=== PATIENT | female | born 1940 | race Two or more races ===

== ENCOUNTER 2024-05-07 13:57 | Outpatient (AMB) | payer OTHER, SELFPAY ==
[2024-05-07 14:26] VITALS: BP 164/78; PULSE 66; RESP 18; TEMP 36.7; O2SAT 91; BMI 25.0
--- NOTE | 2024-05-07 14:26 | PD.ORTHCLVIS ---
Vital signs 05/07/24 14:26 Height 1.57 m Height Method Stated Weight 61.689 kg Weight Measurement Method Standing Scale BMI 25.0 BP 164/78 H Blood Pressure Source Automatic Cuff Blood Pressure Location Left Upper Arm Position Sitting Respiration 18 Pulse 66 Pulse Source Monitor Temp 98.0 F Temp Source Temporal Artery Scan Pulse Oximetry (%) 91 L Oxygen Delivery Method Room Air Med/Allergies Allergies & Medications Allergies No Known Allergies Allergy (Verified 05/07/24 14:26) Medication Reconciliation simvastatin 40 mg tablet 40 mg PO HS ##90 07/27/15 [History Confirmed 05/07/24] acetaminophen 300 mg-codeine 30 mg tablet 1 tab PO Q6HR PRN Pain 06/12/23 [History Confirmed 05/07/24] celecoxib 200 mg capsule 200 mg PO QDAY 06/12/23 [History Confirmed 05/07/24] pantoprazole 40 mg tablet,delayed release 40 mg PO QDAY 06/12/23 [History Confirmed 05/07/24] apixaban 5 mg (74 tabs) tablets in a dose pack 5 mg PO BID #74 tabs 06/14/23 [Rx Confirmed 05/07/24] cephalexin 500 mg capsule 500 mg PO Q6H #16 caps 06/14/23 [Rx Confirmed 05/07/24] Exam Exam Patient is in no acute distress and is cooperative with the examination today. Patient has a normal mood and affect. Breathing is nonlabored. In no respiratory distress. Bilateral extremities were evaluated and demonstrates sensation intact to light touch. Palpable pedal pulses are present. No significant edema is present. Patient has spinal tenderness Right hip demonstrates pain with logroll no pain with Stinchfield. Flexion is 90 internal rotation is to 20 degrees and external rotation is 20 degrees. Left hip range of motion is preserved Patient has moderate to advanced right hip osteoarthritis. X-rays demonstrate [id number] arthritis with significant wear of the acetabulum Assessment and Plan Problem List (1) Arthritis of right hip: Status: Acute Plan: Patient has significant right hip arthritis and has been wheelchair-bound since April. She had great relief with her last hip injection. At this point time, the pain is affecting her quality life and happiness. We discussed total Hip replacement is a reasonable option. She is at high risk for medical complications given her history of PE and NSTEMI she will need medical and cardiac stents The nature and purpose of the total hip replacement, alternative method(s) of treatment, the material risks involved, and the possibility of complications were fully explained to the patient. The patient does NOT have any of the following contraindications to CHRISTOPHER: - Active infection of the hip joint, OR - Active systemic bacteremia, OR - Active skin infection or open wound at surgical site, OR - Neuropathic arthritis, OR - Severe, rapidly progressive neurological disease, OR - Severe medical condition that makes risks of the surgery outweigh the potential benefit The patient was told the most common risks and complications associated with a total hip replacement include, but are not limited to: blood clots in the leg, fatal pulmonary embolism, dislocation of the prosthesis, intraoperative and postoperative fractures of the femur or acetabulum, infection, failure of the prosthesis or grafting materials, complications from anesthesia, reactions to blood transfusions, postoperative leg length inequality, instability of the hip replacement, nerve damage or injury, vascular injury, delayed wound healing, infection, other injury or even . In addition, there are risks associated with anesthesia given during this operation. Also, the patient was told that after undergoing a total hip replacement there may still be persistent pain or disability. The patient was informed that the success of this operation in part depends upon the mechanical devices which are going to be implanted and that these devices can fail or malfunction, and may need to be repaired or replaced and there are no guarantees as to the longevity of this device or its parts and that it or its parts could fail prematurely. The patient was also notified that during the course of surgery, there may be a need to use bone graft from donors, and that any bone graft used will be carefully screened for communicable diseases, including AIDS, hepatitis, Bjorn-Creutzfeldt, or other diseases, but despite the screening procedures, there is a small chance that they could contract one of these diseases. Finally, the patient was asked to follow completely and fully with all advice and recommended treatments, and that recovery and ultimate outcome are affected by their compliance with recommended treatment. We discussed the risks, benefits and treatment alternatives, and the patient is interested in proceeding with surgery. We will try to set this up as expeditiously as possible. (2) Muscle spasm of back: Status: Acute Advanced Care Planning Discussion Advance care planning discussed with:: patient Office Procedures GNS Level of Care Nursing/Assessment Patient Status: Established Patient Nursing Assessment/Reassesment: Medication Reconciliation, Update PMH in EMR and Vital Signs Coordination of Care: Complex Care and Chronic Disease 1-5, Education Complex Pt/Fam, Consent,records obtained, informed consent, Results/Orders obtained and Staff clarify orders Established Patient Charge Established Patient Point Assignment: 95 Established Patient Point Charge: EP Level 3 (80-115) MA Intake Visit Data Collection New Patient or Established: Established Patient (seen at [facility] within 3 years) Reason for Visit:: FOLLOW UP SX Seen by Clinical Staff ONLY (RN/MA): No Mold Maker Required: No PCP or OBGYN visit in last 3 months: Yes Hx Now: No Do You Feel Safe at Home: Yes Authorities Contacted: N/A Questionairres Past Medical History Past Medical History Have you ever been diagnosed with any of the following: Cardiology Problems Hypercholesterolemia: Yes Congestive Heart Failure: Yes Edema: Yes Hypertension: Yes Respiratory Problems Chronic Obstructive Pulmonary Disease (COPD): No Asthma: No Stomache/Intestinal Problems Gastroesophageal Reflux Disease: Yes Genital/Urinary Problems Renal Disease: No Musculoskeletal Problems Arthritis: Yes (OSTEOARTHRITIS) Osteoporosis: No Endocrine Problems Diabetes Mellitus Type 1: No Diabetes Mellitus Type 2: No Blood Problems Sickle Cell Disease: No Psychologic Problems Depression: No Anxiety: No Other Problems Hospitalization: Yes Falls: Yes Anesthesia Reactions: No Cancer: No Surgical History Hysterectomy: Yes Subjective Visit Visit for: follow up visit and hip Immunization / Flu Flu Vaccine in the Last 12 Months: No Flu Vaccine Exclusion Criteria: No Exclusion Criteria History of Present Illness Chief complaint: right hip osteoarthritis ranjan is a pleasant 83-year-old female who presents today for evaluation of her right hip. She has significant right hip pain and right hip Arthritis. We discussed total hip replacement reasonable option. She had a hip injection 4 months ago and had great relief from it. She is at high risk of medical complications given her history of PE, her IVC filter, and NSTEMI. She will need a repeat cardiac clearance Pain Pain level (0-10): 0 Ambulatory data Ambulatory device: other (specify) (WHEELCHAIR) Treatments Improvement with previous injections: No Improvement with PT: No Improvement with NSAIDS: no Review of Systems Review of Systems: All systems negative unless otherwise noted in HPI.
== END 2024-05-07 14:58 | disposition home or self-care (01) ==
PROVIDERS: PCP Physician Assistant; Referring Provider Physician Assistant; Supervising Provider Orthopaedic Surgery Adult Reconstructive Orthopaedic Surgery; Visit Provider Orthopaedic Surgery Adult Reconstructive Orthopaedic Surgery
DX: M16.11 Unilateral primary osteoarthritis, right hip (principal); M62.830 Muscle spasm of back; Z99.3 Dependence on wheelchair; I11.0 Hypertensive heart disease with heart failure; I50.9 Heart failure, unspecified; E78.00 Pure hypercholesterolemia, unspecified; K21.9 Gastro-esophageal reflux disease without esophagitis; Z86.711 Personal history of pulmonary embolism
CPT/HCPCS: 99213; G0463

== ENCOUNTER → 2024-05-07 | Outpatient (CLI) | payer OTHER, SELFPAY ==
[2024-05-07 17:10] LABS: Alanine Aminotransferase 26 U/L (10-49); Albumin, Serum 4.4 gm/dL (3.4-4.8); Albumin/Globulin Ratio 2.4 (1.2-2.2); Alkaline Phosphatase 83 U/L (46-116); Anion Gap 11 (7-16); Aspartate Amino Transferase 17 U/L (0-34); BUN/Creatinine Ratio 33 Ratio (12-20); Bilirubin,Total 0.4 mg/dL (0.3-1.2); Blood Urea Nitrogen 26 mg/dL (9-23); Calcium 9.5 mg/dL (8.3-10.6); Calcium (Corrected) 9.5 mg/dL (8.5-10.1); Carbon Dioxide 29.4 mMol/L (20.0-31.0); Cardiac Risk Estimate 3.3 RATIO (3.7-5.6); Chloride 104 mMol/L (98-107); Cholesterol 209 mg/dL (132-200); Creatinine (Component) 0.8 mg/dL (0.6-1.3); Globulin 1.8 gm/dL (2.3-3.5); Glucose 129 mg/dL (74-106); HDL Cholesterol 63 mg/dL (40-60); LDL Cholesterol,Calculated 122 mg/dL (0-130); Osmolality,Calculated 293 (275-295); Potassium 4.2 mMol/L (3.4-5.1); Sodium 144 mMol/L (136-145); Total Protein 6.2 gm/dL (5.7-8.2); Triglycerides 118 mg/dL (30-150); eGFR > 60 See Note
== END | disposition home or self-care (01) ==
PROVIDERS: PCP Physician Assistant; Referring Provider Physician Assistant; Visit Provider Physician Assistant
DX: I12.9 Hypertensive chronic kidney disease with stage 1 through stage 4 chronic kidney disease, or unspecified chronic kidney disease (principal); N18.30 Chronic kidney disease, stage 3 unspecified; E78.5 Hyperlipidemia, unspecified
CPT/HCPCS: 36415; 80053; 80061

== ENCOUNTER 2024-05-17 13:44 | Outpatient (RCR) | payer OTHER, SELFPAY | END 2024-05-21 23:59 | disposition home or self-care (01) | LOC: SCTC 13:44 | PROVIDERS: PCP Physician Assistant; Referring Provider Physician Assistant; Visit Provider Nurse Practitioner Family | DX: Z09 Encounter for follow-up examination after completed treatment for conditions other than malignant neoplasm (principal); Z86.718 Personal history of other venous thrombosis and embolism; Z86.711 Personal history of pulmonary embolism; Z79.01 Long term (current) use of anticoagulants | CPT/HCPCS: 99212; G0463 ==

== ENCOUNTER → 2024-05-25 | Outpatient (CLI) | payer OTHER, SELFPAY ==
[2024-05-25 16:29] LABS: Basophils % (Auto) 0 % (0-2.5); Eosinophils # (Auto) 0.1 Thou/mm3 (0.0-0.5); Eosinophils % (Auto) 0 % (0-10); Hematocrit 35.7 % (36.0-46.0); Hemoglobin 11.8 g/dL (12.0-16.0); Immature Granulocytes % (Auto) 2 % (0-0); Immature Granulocytes Auto 0.21 Thou/mm3 (0.00-0.00); Lymphocytes # (Auto) 1.4 Thou/mm3 (1.0-4.8); Lymphocytes % (Auto) 13 % (10-50); Mean Corpuscular HGB Conc 33.1 g/dl (31.0-37.0); Mean Corpuscular Hemoglobin 30.3 pg (25.0-35.0); Mean Corpuscular Volume 92 fL (80-100); Monocytes # (Auto) 0.5 Thou/mm3 (0.0-0.8); Monocytes % (Auto) 5 % (0-12); Neutrophils % (Auto) 80 % (37-80); Nucleated Red Blood Cell % 0 /100 WBC (0); Platelet Count 254 Thou/mm3 (140-440); Red Blood Count 3.89 Miln/mm3 (4.00-5.20); White Blood Count 11.2 Thou/mm3 (3.6-11.0)
[2024-05-25 16:36] LABS: INR 0.9 (0.9-1.3); Partial Thromboplastin Time 24.8 Seconds (22.0-36.0); Prothrombin Time 10.3 Seconds (9.0-12.2)
[2024-05-25 16:41] LABS: Alanine Aminotransferase 27 U/L (10-49); Albumin, Serum 4.2 gm/dL (3.4-4.8); Albumin/Globulin Ratio 2.1 (1.2-2.2); Alkaline Phosphatase 87 U/L (46-116); Anion Gap 10 (7-16); Aspartate Amino Transferase 13 U/L (0-34); BUN/Creatinine Ratio 54 Ratio (12-20); Bilirubin,Total 0.6 mg/dL (0.3-1.2); Blood Urea Nitrogen 43 mg/dL (9-23); Calcium 9.1 mg/dL (8.3-10.6); Calcium (Corrected) 9.1 mg/dL (8.5-10.1); Carbon Dioxide 29.3 mMol/L (20.0-31.0); Chloride 103 mMol/L (98-107); Creatinine (Component) 0.8 mg/dL (0.6-1.3); Glucose 164 mg/dL (74-106); Osmolality,Calculated 297 (275-295); Potassium 4.2 mMol/L (3.4-5.1); Sodium 142 mMol/L (136-145); Total Protein 6.2 gm/dL (5.7-8.2); eGFR > 60 See Note
== END | disposition home or self-care (01) ==
LOC: COPL 15:29
PROVIDERS: PCP Physician Assistant; Referring Provider Physician Assistant; Visit Provider Physician Assistant
DX: Z01.818 Encounter for other preprocedural examination (principal)
CPT/HCPCS: 36415; 80053; 85025; 85610; 85730

== ENCOUNTER 2024-06-10 12:57 | Outpatient (AMB) | payer OTHER, SELFPAY ==
[2024-06-10 13:06] VITALS: BP 149/101; PULSE 94; RESP 18; TEMP 36.3; O2SAT 95
--- NOTE | 2024-06-10 13:06 | PD.ORTHCLVIS ---
Vital signs 06/10/24 13:06 Height 1.57 m Height Method Stated Weight Measurement Method Estimated by Patient BP 149/101 H Blood Pressure Source Automatic Cuff Blood Pressure Location Right Upper Arm Position Sitting Respiration 18 Pulse 94 Pulse Source Monitor Temp 97.3 F Temp Source Temporal Artery Scan Pulse Oximetry (%) 95 Oxygen Delivery Method Room Air Med/Allergies Allergies & Medications Allergies No Known Allergies Allergy (Verified 06/10/24 13:08) Medication Reconciliation simvastatin 40 mg tablet 40 mg PO HS ##90 07/27/15 [History Confirmed 06/10/24] acetaminophen 300 mg-codeine 30 mg tablet 1 tab PO Q6HR PRN Pain 06/12/23 [History Confirmed 06/10/24] celecoxib 200 mg capsule 200 mg PO QDAY 06/12/23 [History Confirmed 06/10/24] pantoprazole 40 mg tablet,delayed release 40 mg PO QDAY 06/12/23 [History Confirmed 06/10/24] apixaban 5 mg (74 tabs) tablets in a dose pack 5 mg PO BID #74 tabs 06/14/23 [Rx Confirmed 06/10/24] cephalexin 500 mg capsule 500 mg PO Q6H #16 caps 06/14/23 [Rx Confirmed 06/10/24] Exam Exam Patient is in no acute distress and is cooperative with the examination today. Patient has a normal mood and affect. Breathing is nonlabored. In no respiratory distress. Bilateral extremities were evaluated and demonstrates sensation intact to light touch. Palpable pedal pulses are present. No significant edema is present. Patient has spinal tenderness Right hip demonstrates pain with logroll no pain with Stinchfield. Flexion is 90 internal rotation is to 20 degrees and external rotation is 20 degrees. Left hip range of motion is preserved Patient has moderate to advanced right hip osteoarthritis. X-rays demonstrate nyef-ea-gnsj arthritis with significant wear of the acetabulum Assessment and Plan Problem List (1) Arthritis of right hip: Status: Acute Plan: Patient has significant right hip arthritis and has been wheelchair-bound since April. She had great relief with her last hip injection. At this point time, the pain is affecting her quality life and happiness. We discussed total Hip replacement is a reasonable option. She is at high risk for medical complications given her history of PE and NSTEMI she will need medical and cardiac stents. The patient understands that she is at high risk for surgery and would like to proceed with surgery. She is status post a stop Eliquis 3 days prior to surgery and is to resume it 2 days after surgery. The nature and purpose of the total hip replacement, alternative method(s) of treatment, the material risks involved, and the possibility of complications were fully explained to the patient. The patient does NOT have any of the following contraindications to CHRISTOPHER: - Active infection of the hip joint, OR - Active systemic bacteremia, OR - Active skin infection or open wound at surgical site, OR - Neuropathic arthritis, OR - Severe, rapidly progressive neurological disease, OR - Severe medical condition that makes risks of the surgery outweigh the potential benefit The patient was told the most common risks and complications associated with a total hip replacement include, but are not limited to: blood clots in the leg, fatal pulmonary embolism, dislocation of the prosthesis, intraoperative and postoperative fractures of the femur or acetabulum, infection, failure of the prosthesis or grafting materials, complications from anesthesia, reactions to blood transfusions, postoperative leg length inequality, instability of the hip replacement, nerve damage or injury, vascular injury, delayed wound healing, infection, other injury or even . In addition, there are risks associated with anesthesia given during this operation. Also, the patient was told that after undergoing a total hip replacement there may still be persistent pain or disability. The patient was informed that the success of this operation in part depends upon the mechanical devices which are going to be implanted and that these devices can fail or malfunction, and may need to be repaired or replaced and there are no guarantees as to the longevity of this device or its parts and that it or its parts could fail prematurely. The patient was also notified that during the course of surgery, there may be a need to use bone graft from donors, and that any bone graft used will be carefully screened for communicable diseases, including AIDS, hepatitis, Bjorn-Creutzfeldt, or other diseases, but despite the screening procedures, there is a small chance that they could contract one of these diseases. Finally, the patient was asked to follow completely and fully with all advice and recommended treatments, and that recovery and ultimate outcome are affected by their compliance with recommended treatment. We discussed the risks, benefits and treatment alternatives, and the patient is interested in proceeding with surgery. We will try to set this up as expeditiously as possible. (2) Muscle spasm of back: Status: Acute Advanced Care Planning Discussion Advance care planning discussed with:: patient Office Procedures GNS Level of Care Nursing/Assessment Patient Status: Established Patient Nursing Assessment/Reassesment: Medication Reconciliation, Update PMH in EMR and Vital Signs Coordination of Care: Complex Care and Chronic Disease 1-5, Education Complex Pt/Fam, Consent,records obtained, informed consent, Results/Orders obtained and Staff clarify orders Established Patient Charge Established Patient Point Assignment: 95 Established Patient Point Charge: EP Level 3 (80-115) MA Intake Visit Data Collection New Patient or Established: Established Patient (seen at [facility] within 3 years) Reason for Visit:: PRE-OP HIP Seen by Clinical Staff ONLY (RN/MA): No Verbal consent obtained for Telemed visit?: No Tooling Mechanic Required: No PCP or OBGYN visit in last 3 months: Yes Hx Now: No Do You Feel Safe at Home: Yes Authorities Contacted: N/A Questionairres Past Medical History Past Medical History Have you ever been diagnosed with any of the following: Cardiology Problems Hypercholesterolemia: Yes Congestive Heart Failure: Yes Edema: Yes Hypertension: Yes Respiratory Problems Chronic Obstructive Pulmonary Disease (COPD): No Asthma: No Stomache/Intestinal Problems Gastroesophageal Reflux Disease: Yes Genital/Urinary Problems Renal Disease: No Musculoskeletal Problems Arthritis: Yes (OSTEOARTHRITIS) Osteoporosis: No Endocrine Problems Diabetes Mellitus Type 1: No Diabetes Mellitus Type 2: No Blood Problems Sickle Cell Disease: No Psychologic Problems Depression: No Anxiety: No Other Problems Hospitalization: Yes Falls: Yes Anesthesia Reactions: No Cancer: No Surgical History Hysterectomy: Yes Subjective Visit Visit for: follow up visit and hip Immunization / Flu Flu Vaccine in the Last 12 Months: No Flu Vaccine Exclusion Criteria: No Exclusion Criteria and Already Received History of Present Illness Chief complaint: right hip osteoarthritis ranjan is a pleasant 83-year-old female who presents today for evaluation of her right hip. She has significant right hip pain and right hip Arthritis. We discussed total hip replacement reasonable option. She had a hip injection 6 months ago and had great relief from it. She is at high risk of medical complications given her history of PE, her IVC filter, and NSTEMI. She will need a repeat cardiac clearance Personal History Occupation: DISABLED Red flag PMH: none Pain Pain level (0-10): 0 Pain duration: ALL DAY Pain location: groin Pain quality: sharp, dull and aching Pain timing: night, increases with activity and stairs Ambulatory data Ambulatory device: other (specify) (WHEELCHAIR) Treatments Improvement with previous injections: No Improvement with PT: No Improvement with NSAIDS: no Review of Systems Review of Systems: All systems negative unless otherwise noted in HPI.
== END 2024-06-10 13:27 | disposition home or self-care (01) ==
LOC: HODSRG 12:57
PROVIDERS: PCP Physician Assistant; Referring Provider Physician Assistant; Supervising Provider Orthopaedic Surgery Adult Reconstructive Orthopaedic Surgery; Visit Provider Orthopaedic Surgery Adult Reconstructive Orthopaedic Surgery
DX: M16.11 Unilateral primary osteoarthritis, right hip (principal); M62.830 Muscle spasm of back; Z99.3 Dependence on wheelchair; I11.0 Hypertensive heart disease with heart failure; I50.9 Heart failure, unspecified; E78.00 Pure hypercholesterolemia, unspecified; K21.9 Gastro-esophageal reflux disease without esophagitis
CPT/HCPCS: 99213; G0463

== ENCOUNTER 2024-06-23 09:45 | Inpatient (IN) | payer OTHER, MEDICAID, MEDICARE, SELFPAY ==
--- NOTE | 2024-06-18 13:50 | EKG_ITS ---
[facility] Test Date: 2024-06-18 Pat Name: NIGHAT GRIJALVA Department: Room: - Gender: Female Airplane Flight Attendant: RT [facility] : 1940 Requested By: Jimenez Hussein Order Number: [id number] Reading MD: Jimenez Hussein Measurements Intervals [place] Rate: 73 P: 58 OK: 153 QRS: 59 QRSD: 75 T: 60 QT: 377 QTc: 417 Interpretive Statements SINUS RHYTHM WITH SINUS ARRHYTHMIA POSSIBLE ANTERIOR MYOCARDIAL INFARCTION , OF INDETERMINATE AGE [30 ms Q WAVE IN V3/V4, OR R < 0.2 mV IN V4] Compared to ECG 06/25/2023 17:03:14 Myocardial infarct finding now present T-wave abnormality no longer present Possible ischemia no longer present /store/S0/[id number]/[id number].pdf
[2024-06-18 14:10] VITALS: BMI 24.7
[2024-06-18 15:44] LABS: Basophils % (Auto) 0 % (0-2.5); Eosinophils # (Auto) 0.1 Thou/mm3 (0.0-0.5); Eosinophils % (Auto) 1 % (0-10); Hematocrit 34.6 % (36.0-46.0); Hemoglobin 11.5 g/dL (12.0-16.0); Immature Granulocytes % (Auto) 2 % (0-0); Immature Granulocytes Auto 0.23 Thou/mm3 (0.00-0.00); Lymphocytes # (Auto) 1.4 Thou/mm3 (1.0-4.8); Lymphocytes % (Auto) 13 % (10-50); Mean Corpuscular HGB Conc 33.2 g/dl (31.0-37.0); Mean Corpuscular Hemoglobin 29.9 pg (25.0-35.0); Mean Corpuscular Volume 90 fL (80-100); Monocytes # (Auto) 0.7 Thou/mm3 (0.0-0.8); Monocytes % (Auto) 7 % (0-12); Neutrophils # (Auto) 7.7 Thou/mm3 (1.8-7.7); Neutrophils % (Auto) 77 % (37-80); Nucleated Red Blood Cell % 0 /100 WBC (0); Platelet Count 263 Thou/mm3 (140-440); RDW Standard Deviation 42.7 fL (36.4-46.3); Red Blood Count 3.84 Miln/mm3 (4.00-5.20); White Blood Count 10.1 Thou/mm3 (3.6-11.0)
[2024-06-18 15:47] LABS: Partial Thromboplastin Time 27.1 Seconds (22.0-36.0); Prothrombin Time 10.6 Seconds (9.0-12.2)
[2024-06-18 15:48] LABS: Alanine Aminotransferase 26 U/L (10-49); Albumin, Serum 4.3 gm/dL (3.4-4.8); Alkaline Phosphatase 90 U/L (46-116); Anion Gap 8 (7-16); Aspartate Amino Transferase < 10 U/L (0-34); BUN/Creatinine Ratio 24 Ratio (12-20); Bilirubin,Total 0.4 mg/dL (0.3-1.2); Blood Urea Nitrogen 19 mg/dL (9-23); Calcium 9.6 mg/dL (8.3-10.6); Calcium (Corrected) 9.6 mg/dL (8.5-10.1); Carbon Dioxide 27.9 mMol/L (20.0-31.0); Chloride 107 mMol/L (98-107); Creatinine (Component) 0.8 mg/dL (0.6-1.3); Estimated Creatinine Clearance 45.9 mL/min (>60); Globulin 2.1 gm/dL (2.3-3.5); Glucose 172 mg/dL (74-106); Osmolality,Calculated 291 (275-295); Potassium 4.5 mMol/L (3.4-5.1); Sodium 143 mMol/L (136-145); Total Protein 6.4 gm/dL (5.7-8.2); eGFR > 60 See Note
--- NOTE | 2024-06-22 13:55 | SUR.PREOP ---
Cardiac records reviewed with Dr Hussein.
[2024-06-23] VITALS (15 sets, daily range): BP systolic 105–169; BP diastolic 52–76; PULSE 61–92; RESP 12–20; TEMP 34.2–36.3; O2SAT 94–100; BMI 26.2; BMI 33.8
[2024-06-23] MEDS: PREGABALIN 75 MG CAPSULE PO (06:52)
[2024-06-23] MEDS: MELOXICAM 7.5 MG TABLET PO ×2 (06:52→20:09)
[2024-06-23] MEDS: ACETAMINOPHEN 325 MG TABLET 650 MG PO (06:52)
[2024-06-23] MEDS: RINGERS LACTATED 1000 ML 1,000 ML 20 ML IV (06:53)
--- NOTE | 2024-06-23 07:15 | CHAP ---
Visited briefly with patient and gave some words of encouragement and prayer for her procedure.
--- NOTE | 2024-06-23 07:32 | XR_ITS ---
Examination: AP right hip single view TECHNIQUE: Portable AP right hip single view Exam date and time: June 23, 2024 0918 hours INDICATIONS: Post total right hip arthroplasty FINDINGS: Total right hip arthroplasty. Satisfactory alignment Prominent osteopenia IMPRESSION: Total right hip arthroplasty with satisfactory alignment
--- NOTE | 2024-06-23 09:42 | PD.SUROPNT ---
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 year-old with a longstanding history of right hip pain. After considering the patient's condition and the impact of their hip injury on the patient's quality of life and risks of nonoperative treatment, total hip replacement was offered as a reasonable option. Prior to the surgery I discussed the nature of the hip replacement surgery including alternatives to surgery and the purpose of, and indications for proceeding with surgery. I discussed that this surgery is a shared decision between the patient and the surgeon. Risks and benefits and alternatives of the procedure have been explained to the patient and their family. Anesthesia complications and risks include but are not limited to stroke, heart attack, and . The surgical risks include but are not limited to infection, instability/dislocation, bleeding, nerve and blood vessel injury, deep vein thrombosis, pulmonary embolus, stiffness, pain, scar, need for reoperation, leg length discrepancy, thigh numbness, weakness, and mechanical failure of the implant including loosening, metal complications, metal allergy, wear or breakage. I discussed the expected recovery from surgery and the importance of compliance with all our pre and post-operative recommendations in order to maximize the recovery. The patient/family understands the risks of loss of life, loss of limb and, loss of function and wishes to proceed. They understand they are at increased risk for infection given their history of smoking. A signed and witnessed consent was obtained and placed in the chart. Patient Positioning: The patient was placed in the lateral decubitus position on a standard table using a pegboard. An axillary role was placed. All extremities were padded to ensure adequate protection. A de la garza catheter was aseptically inserted. Time Out: A timeout was performed prior to the procedure which verified the correct patient, positioning, operation to be performed, operative site, antibiotics, allergies, imaging, and any other concerns. All parties were in agreement. Procedure in detail: The operative site was cleaned and draped in the usual sterile fashion. A final timeout was performed with all parties in agreement. We first placed pins in above the ASIS for the hip arrays. A modified anterolateral approach to the hip was utilized. A 16cm skin incision was made centered over the greater trochanter in line with the femur. This was taken down through skin and subcutaneous tissue using a 10 blade. Bleeding was controlled using electrocautery. The fascia was identified and split in line with the femur. The charnley retractor was then placed. The abductor insertion was identified and a split made in the anterior 1/3 of the tendon proximally. Retractors were placed and the gluteus minimus was visualized. A capsulotomy was made down to the femoral neck anterior to the minimus. A split was then made in the anterior 1/3 of the vastus lateralis. A retractor was then placed anterior to the femoral shaft, the tendon was tagged with #1 ethibond sutures and a U-shaped split was made in the anterior 1/3 of the abductor tendon being careful to leave enough tendon to re-attach. The hip was then gently externally rotated as the anterior tissues were taken down with the tendon and capsule as one sleeve. Once the anterior tissue had been release off of bone a bone hook was placed and the hip was gently dislocated. Retractors were placed around the femoral neck and the femoral neck osteotomy was then made to freshen up the cut. The femoral head removed. The leg was then placed in extension and retractors were placed anterior and posterior to the acetabulum. The inferior capsule was release to improved visualization and the labrum and osteophytes around the acetabulum were removed. The acetabulum was then reamed to bleeding bone with adequate wall coverage and the cup was impacted into place using the paul. Screws were then placed followed by the liner which was impacted and confirmed to be seated. We then turned our attention to the femur. The leg was brought into external rotation and the femur was exposed. A canal finder was used followed by a box osteotomy and the femur was broached sequentially. The trial stem was then left in and the hip was trialed using various neck offsets and head sizes until the appropriate size was found based on leg length, stability. Once we were satisfied with the construct a cross-table AP pelvis radiograph was obtained to confirm appropriate positioning and sizing. The hip was then dislocated and the trials were then removed and the final stem impacted into placed. The hip was then again trialed and the appropriate head size identified. The lopez taper was then cleaned and dried and the final head impact into place and tested. The acetabulum was irrigated and confirmed to be free of debris. The hip was then reduced and taken through range of motion. The hip was stable in abduction and external rotation, adduction and external rotation, flexion past 90 degrees and internal rotation past 20 degrees. It did not sublux throughout range of motion and no impingement was detected. Leg lengths were appropriately restored based on preoperative leg lengths and intraoperative testing. . The hip was then copiously irrigated with dilute betadine followed by normal saline. The hip was then injected with the cocktail per protocol The hip was the closed in layers. The abductor tendon was closed with #1 ethibond. The fascia was closed with 0 Vicryl followed by an 0 V-lock. . The deep layer was closed with 0-Vicryl and the subcutaneous layer by a 2-0 Vicryl. The subdermal layer was closed with a 3-0 monocryl. The skin was then cleaned and dried and steri-strips placed followed by a sterile dressing. The drapes were then taken down and the patient was placed supine. Leg lengths were confirmed to be appropriate and the patient's lower extremities were warm and well perfused with brisk capillary refill and palpable pulses. The patient was then awoken, transferred [facility] the [facility] and taken to the PACU in stable condition. They tolerated the procedure well. The patient's family/caregiviers were made aware of their condition. Postoperative plan Activity: WBAT, no hip precautions , no active hip abduction DVT Prophylaxis: aspirin 81mg BID Antibiotics: Standard postoperative antibiotics x 24 hours Implants: Shakila 48 cup, 6 standard actis, 2 screw, standard liner, 36-5 head Anesthesia GETA Implants shakila Pathology / specimen None Pathology comment: none Estimated Blood Loss 150 [address] floor Surgeon Osvaldo Wiggins MD Surgical Staff Operation Date: 06/23/24 07:30 Case Staff BIG 6 DEALER: Gee Huff RNcommunity service officer: Aubrie Murillo
--- NOTE | 2024-06-23 10:20 | SUR.PHASEI ---
1020: Pt. arrived with oral airway in place, vitals stable, breathing unlabored, no signs of distress, dressing to right hip CDI, bilateral dorsalis pedis pulses strong and regular, cap refill to bilateral feet less than 3 seconds, pt. has +3 pitting edema to bilateral lower extremeties, report received from Fabian Peterson CRNA RN, and Elzbieta RN.
--- NOTE | 2024-06-23 10:55 | XR_ITS ---
Examination:Right hip AP, lateral, AP pelvis 3 views Technique: Hip AP lateral, AP pelvis, 3 views Exam date and time:June 23, 2024 1102 hours INDICATIONS: Postop right hip arthroplasty today. FINDINGS: Total right hip arthroplasty. Satisfactory alignment Prominent osteopenia Left hip bones of the pelvis intact IMPRESSION: Total right hip arthroplasty with satisfactory alignment.
[2024-06-23] MEDS: fentaNYL CIT INJ 50 mCg/ML AMP 2ML IV (11:01)
--- NOTE | 2024-06-23 11:10 | SUR.PHASEII ---
1110: Pt. AAOx4, vitals stable, breathing unlabored, no complaint of pain or nausea, dressing to right hip CDI, no active bleed noted, bilateral dorsalis pedis pulses strong and regular, pt. tolerated bites of ice well, gave report to Tom PALACIOS prior to transfer to room 363. Family made aware of transfer to room. Pt. belongings given to family to transfer to pt. room.
--- NOTE | 2024-06-23 11:55 | PD.RESCONSUL ---
HPI Data of Consult Requesting Physician: Osvaldo Wiggins MD Attending Provider: Osvaldo Wiggins MD Primary Care Provider: Mari Crowder PA-C Consult Narrative cc:: cc: Osvaldo Wiggins MD Exam Vital Signs Temp Pulse Resp BP Pulse Ox O2 Flow Rate 97.1 F 79 20 124/52 L 98 2 06/23/24 11:05 06/23/24 11:05 06/23/24 11:05 06/23/24 11:05 06/23/24 11:05 06/23/24 11:05 Results Labs 06/18/24 14:28 06/18/24 14:28 Medications Home Medications and Allergies Home Medications ?Medication ?Instructions ?Recorded ?Confirmed ?Type simvastatin 40 mg tablet 40 mg PO HS ##90 07/27/15 06/18/24 History pantoprazole 40 mg tablet,delayed 40 mg PO QDAY 06/12/23 06/18/24 History release furosemide 40 mg tablet (Lasix) 40 mg PO QAM 06/18/24 06/18/24 History losartan 50 mg tablet 100 mg PO HS 06/18/24 06/18/24 History potassium chloride 10 mEq 10 meq PO QDAY 06/18/24 06/18/24 History tablet,extended release (Klor-Con) Allergies Allergy/AdvReac Type Severity Reaction Status Date / Time heparin Allergy Verified 06/23/24 06:16 Visit Medications Acetaminophen (Acetaminophen 500 Mg Tablet) 1,000 mg PO Q6HR [facility] Stop: 07/23/24 11:59 Apixaban (Apixaban 2.5 Mg Tablet) 2.5 mg PO BID [facility] Stop: 07/01/24 09:01 Atorvastatin Calcium (Atorvastatin Calcium 20 Mg Tablet) 40 mg PO [facility]; Protocol Stop: 07/23/24 20:59 Furosemide (Furosemide 40 Mg Tablet) 40 mg PO QAM [facility] Stop: 07/24/24 08:59 Lactated Ringer's (Lactated Ringers) 1,000 mls @ 20 mls/hr IV .Q24H ONE Stop: 06/24/24 05:59 Last Admin: 06/23/24 06:53 Dose: 20 mls/hr Lactated Ringer's (Lactated Ringers) 500 mls @ 150 mls/hr IV .Q3H20M ONE Stop: 06/23/24 15:05 Losartan Potassium (Losartan Potassium 25 Mg Tablet) 100 mg PO HS [facility] Stop: 07/23/24 20:59 Meloxicam (Meloxicam 7.5 Mg Tablet) 7.5 mg PO [facility] Stop: 07/23/24 20:59 Oxycodone HCl (Oxycodone Hcl 5 Mg Ir Tab) 5 mg PO Q6HR PRN PRN Reason: PAIN 1-6 (mild-mod Stop: 06/28/24 10:39 Oxycodone HCl (Oxycodone Hcl 5 Mg Ir Tab) 10 mg PO Q6HR PRN PRN Reason: PAIN SCALE 7-10 (Severe Stop: 06/28/24 10:39 Pantoprazole Sodium (Pantoprazole Inj 40 Mg Vial) 40 mg IV QDAY [facility] Stop: 07/24/24 08:59 Potassium Chloride (Potassium Chloride 10% 20 Meq/15 Ml Udc) 10 meq PO QDAY [facility] Stop: 07/24/24 08:59 Discontinued Medications Acetaminophen (Acetaminophen 325 Mg Tablet) 650 mg PO X1 ONE Stop: 06/23/24 06:01 Last Admin: 06/23/24 06:52 Dose: 650 mg Fentanyl Citrate (Fentanyl Cit Inj 50 Mcg/Ml Amp 2ml) 50 mcg IV Q5M PRN PRN Reason: PAIN SCALE 4-6 (Moderate Stop: 06/23/24 10:38 Last Admin: 06/23/24 11:01 Dose: 50 mcg Acetaminophen (Ofirmev Inj) 1,000 mg in 100 mls @ 250 mls/hr IV Q6H PRN PRN Reason: PAIN 1-6 (mild-mod Stop: 06/24/24 08:37 Meloxicam (Meloxicam 7.5 Mg Tablet) 7.5 mg PO X1 ONE Stop: 06/23/24 06:01 Meloxicam (Meloxicam 7.5 Mg Tablet) 7.5 mg PO X1 ONE Stop: 06/23/24 06:46 Last Admin: 06/23/24 06:52 Dose: 7.5 mg Ondansetron HCl (Ondansetron Inj 2 Mg/Ml Inj 2 Ml) 4 mg IV Q6HR PRN; Protocol PRN Reason: NAUSEA OR VOMITING Stop: 07/23/24 08:37 Pantoprazole Sodium (Pantoprazole 40 Mg Tablet) 40 mg PO QDAY [facility] Stop: 07/24/24 08:59 Pregabalin (Pregabalin 75 Mg Capsule) 75 mg PO X1 ONE Stop: 06/23/24 06:46 Last Admin: 06/23/24 06:52 Dose: 75 mg
[2024-06-23] MEDS: RINGERS LACTATED 1000 ML 1,000 ML 150 ML IV (12:05)
--- NOTE | 2024-06-23 12:10 | ESCONSULT_ITS ---
HPI Data of Consult Consult date: 06/23/24 Requesting Physician: Osvaldo Wiggins MD Attending Provider: Osvaldo Wiggins MD Primary Care Provider: Mari Crowder PA-C Consult Narrative Reason for consult: Hypothermia History of present illness: This patient is a 83-year-old female with longstanding history of right hip pain, hypertension, hyperlipidemia, bilateral PE with history of DVT, osteoarthritis, avascular necrosis of right hip, history of thyroid nodule s/p biopsy, history of MDR UTI presented with chronic history of right hip pain. Patient was admitted under care of orthopedics, Dr. Wiggins for right total hip arthroplasty due to right hip avascular necrosis. Patient underwent surgery today this morning, 06/23/2024 06/23/2024 consultation: Rapid response was called due to hypothermia. Patient was assessed and she was found to be AO x 3. Rectal temperature was 93.5. Vitals showed blood pressure 117/52, heart rate 68 bpm, respiratory rate 20 bpm and was saturating well on 1 L NC. Labs showed leukocytosis, normocytic anemia and stable platelet count. Chemistry panel showed mild hypokalemia potassium 3.1, hypochloremia chloride 100 kidney functions were stable. Blood glucose 165. A1c 7.4. TSH 2.35. 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 Postsurgery hip x-ray showed total right hip arthroplasty with satisfactory alignment. Initial EKG on 06/18 showed sinus rhythm. We recommended to start the patient on warm IV solution initially initially giving a 500 cc due to concern for history of questionable heart failure although patient's chart review showed that she had an echo in May 2023 which showed EF 65 to 70%. Will likely monitor temperature a couple of hours and if needed will give an additional 500 cc IV fluid. Additionally, warm blankets were placed on the patient. PMH: As above PSH: 2 C-sections, hysterectomy Allergies: Heparin Home medications: Lasix 40 mg, Eliquis 5 mg, losartan, simvastatin and Protonix cc:: cc: Osvaldo Wiggins MD Review of Systems Review of Systems Systems Reviewed: All systems reviewed, normal except as documented Past Medical History Past Medical History CARDIAC: Positive Cardiac Disorders, Hypercholesterolemia, Congestive Heart Failure, Edema and Hypertension GASTROINTESTINAL: Positive Gastroesophageal Reflux Disease Family History FAMILY HISTORY: Positive Family Cancer Social History SMOKING STATUS: Never smoker Exam Vital Signs Temp Pulse Resp BP Pulse Ox O2 Flow Rate 97.1 F 79 20 124/52 L 98 2 06/23/24 11:05 06/23/24 11:05 06/23/24 11:05 06/23/24 11:05 06/23/24 11:05 06/23/24 11:05 Narrative Exam GENERAL APPEARANCE: AxOx4, old female in no acute distress lying comfortably in conversation. Saturating well on 1 L NC. HEENT: NC, AT. MMM. EOMI, clear conjunctiva, oropharynx clear. NECK: Supple without lymphadenopathy. No stiffness or restricted ROM. HEART: Regular rate and regular rhythm, normal S1/S2, no m/r/g LUNGS: CTAB, moving air well. No crackles or wheezes are heard. ABDOMEN: Soft, nontender, nondistended with good bowel sounds heard. BACK: No CVAT, no obvious deformity. EXTREMITIES: Right lower extremity covered in surgical dressing over right hip. No obvious signs of bleeding or bruising. NEUROLOGICAL: Grossly nonfocal. Alert and oriented, x3. CN not formally tested but appear grossly intact. Skin: Warm and dry without any rash. Psych: appropriate mood and affect Results Labs 06/23/24 12:09 06/23/24 12:09 Quality Measures Quality Measures VTE prophylaxis Advance care planning discussed with:: patient Medications Home Medications and Allergies Home Medications ?Medication ?Instructions ?Recorded ?Confirmed ?Type simvastatin 40 mg tablet 40 mg PO HS ##90 07/27/15 History pantoprazole 40 mg tablet,delayed 40 mg PO QDAY 06/18/24 History release furosemide 40 mg tablet (Lasix) 40 mg PO QAM 06/18/24 06/18/24 History losartan 50 mg tablet 100 mg PO HS 06/18/24 History potassium chloride 10 mEq 10 meq PO QDAY 06/18/2405/23 History tablet,extended release (Klor-Con) Allergies Allergy/AdvReac Type Severity Reaction Status Date / Time heparin Allergy Verified 06/23/24 06:16 Visit Medications Acetaminophen (Acetaminophen 500 Mg Tablet) 1,000 mg PO Q6HR [facility] Stop: 07/23/24 11:59 Apixaban (Apixaban 2.5 Mg Tablet) 2.5 mg PO BID [facility] Stop: 07/01/24 09:01 Atorvastatin Calcium (Atorvastatin Calcium 20 Mg Tablet) 40 mg PO HS COUNTS INCLUDE 234 BEDS AT THE [facility]; Protocol Stop: 07/23/24 20:59 Furosemide (Furosemide 40 Mg Tablet) 40 mg PO QAM COUNTS INCLUDE 234 BEDS AT THE [facility] Stop: 07/24/24 08:59 Lactated Ringer's (Lactated Ringers) 1,000 mls @ 20 mls/hr IV .Q24H ONE Stop: 06/24/24 05:59 Last Admin: 06/23/24 06:53 Dose: 20 mls/hr Lactated Ringer's (Lactated Ringers) 500 mls @ 150 mls/hr IV .Q3H20M ONE Stop: 06/23/24 15:19 Last Admin: 06/23/24 12:05 Dose: 150 mls/hr Losartan Potassium (Losartan Potassium 25 Mg Tablet) 100 mg PO [facility] Stop: 07/23/24 20:59 Meloxicam (Meloxicam 7.5 Mg Tablet) 7.5 mg PO [facility] Stop: 07/23/24 20:59 Oxycodone HCl (Oxycodone Hcl 5 Mg Ir Tab) 5 mg PO Q6HR PRN PRN Reason: PAIN 1-6 (mild-mod Stop: 06/28/24 10:39 Oxycodone HCl (Oxycodone Hcl 5 Mg Ir Tab) 10 mg PO Q6HR PRN PRN Reason: PAIN SCALE 7-10 (Severe Stop: 06/28/24 10:39 Pantoprazole Sodium (Pantoprazole Inj 40 Mg Vial) 40 mg IV QDAY COUNTS INCLUDE 234 BEDS AT THE [facility] Stop: 07/24/24 08:59 Potassium Chloride (Potassium Chloride 10% 20 Meq/15 Ml Udc) 10 meq PO QDAY COUNTS INCLUDE 234 BEDS AT THE [facility] Stop: 07/24/24 08:59 Discontinued Medications Acetaminophen (Acetaminophen 325 Mg Tablet) 650 mg PO X1 ONE Stop: 06/23/24 06:01 Last Admin: 06/23/24 06:52 Dose: 650 mg Fentanyl Citrate (Fentanyl Cit Inj 50 Mcg/Ml Amp 2ml) 50 mcg IV Q5M PRN PRN Reason: PAIN SCALE 4-6 (Moderate Stop: 06/23/24 10:38 Last Admin: 06/23/24 11:01 Dose: 50 mcg Acetaminophen (Ofirmev Inj) 1,000 mg in 100 mls @ 250 mls/hr IV Q6H PRN PRN Reason: PAIN 1-6 (mild-mod Stop: 06/24/24 08:37 Lactated Ringer's (Lactated Ringers) 500 mls @ 150 mls/hr IV .Q3H20M ONE Stop: 06/23/24 15:05 Meloxicam (Meloxicam 7.5 Mg Tablet) 7.5 mg PO X1 ONE Stop: 06/23/24 06:01 Meloxicam (Meloxicam 7.5 Mg Tablet) 7.5 mg PO X1 ONE Stop: 06/23/24 06:46 Last Admin: 06/23/24 06:52 Dose: 7.5 mg Ondansetron HCl (Ondansetron Inj 2 Mg/Ml Inj 2 Ml) 4 mg IV Q6HR PRN; Protocol PRN Reason: NAUSEA OR VOMITING Stop: 07/23/24 08:37 Pantoprazole Sodium (Pantoprazole 40 Mg Tablet) 40 mg PO QDAY [facility] Stop: 07/24/24 08:59 Pregabalin (Pregabalin 75 Mg Capsule) 75 mg PO X1 ONE Stop: 06/23/24 06:46 Last Admin: 06/23/24 06:52 Dose: 75 mg Assessment & Plan Plan Summary: This patient is a 83-year-old female with longstanding history of right hip pain, hypertension, hyperlipidemia, bilateral PE with history of DVT, osteoarthritis, avascular necrosis of right hip, history of thyroid nodule s/p biopsy, history of MDR UTI presented with chronic history of right hip pain. Patient underwent right hip total arthroplasty secondary to avascular necrosis of right hip. Rapid response was called for hypothermia and internal medicine hospitalist team was consulted. #Hypothermia #Likely related to anesthesia medications versus postop surgery #Right hip total arthroplasty due to avascular necrosis of right hip ? This morning, rapid response was called for hypothermia. Patient was assessed and was found AOx3. Prior to the rapid response patient underwent right hip total arthroplasty without complication. Estimated blood loss was 450 cc. ? Vitals showed blood pressure 111/52 heart rate 68 bpm, breathing comfortably and saturating well on 1 L NC. ? Post op x-ray hip showed satisfactory alignment Plan: -Warm IV solution given 500 cc x1 -Warm blankets -Monitoring rectal temp -Post op pain control and vitals ?Will monitor the patient after few hours and if needed will give an additional 500 cc warm IV solution #Leukocytosis,Likely reactive -Likely related to Sx -WBCs 16.2 Plan -Monitor fever spike -IV fluids given -F/U on CBC #Normocytic anemia ? Hemoglobin 9.4 ? Hematocrit 28.4 ? Patient had an estimated blood loss of 150 cc postsurgery Plan ? PRBC if hemoglobin drops below 7 ? Follow-up on CBC ? Monitor for signs of bleeding #Hypokalemia ? Potassium came out 3.1 Plan: ? Repleted KCl by Ortho #Diabetes likely type II ? A1c came at 7.4 ? Blood glucose 165 Plan: ? Insulin sliding scale with Accu-Cheks ? Hypoglycemia protocol #History of hypertension #History of hyperlipidemia ? Currently blood pressure is stable Plan: ? Hold blood pressure medications if MAP below 65 ? Continue atorvastatin 40 mg at bedtime #History of DVT and PE ? Patient is currently on Eliquis 5 mg twice daily Plan ? Eliquis 2.5 mg started by ortho team #History of? Heart failure ? Per chart review echocardiogram from May 2023 showed EF 65-70% ? Patient takes Lasix 40 mg once daily Plan: ? No signs of heart failure exacerbation will observe ? No lower extremity edema or JVD noticed ? Currently holding Lasix -- Rest of the management as per ortho team.Thank you for consulting internal medicine team. Health maintenance Diet: Regular diet DVT prophylaxis: Eliquis 2.5 mg twice daily GI prophylaxis: Protonix 40 mg once daily CODE STATUS: Limited code, intubation only and DO NOT RESUSCITATE Disposition: Patient is currently admitted for right hip total arthroplasty due to right hip avascular necrosis. Internal medicine team consulted for hypothermia. -- Patient was seen and discussed with attending physician, Dr. Cecy Michel MD, PGY 2 Attending Provider Attestation/Addendum I have discussed and was present for the essential components of the history, physical examination, diagnosis, and treatment plan with the resident. I agree with the patient's care as documented by the resident and amended herein by me. Saran Sam, DO. Patient seen and evaluated status post surgery which occurred this morning for right total hip arthroplasty secondary to avascular necrosis. Medicine team consulted for hypothermia with a temperature of 93.5. Significant labs include WBC of 16.2 likely reactive, hemoglobin 9.4, potassium 3.1. TSH 2.35. I suspect hypothermia is likely secondary to effects from anesthesia, also possible secondary to a large portion of her body being exposed during surgery in the cold operating room. Regardless, we started warm LR, 500 mL bolus at 150 mL/h. The patient's temperature is already began improving. The patient was ANO x 3 at bedside, only complaint was hip pain. Will continue to monitor closely, we appreciate the opportunity to participate in the care and management of this patient. Although this document has been carefully reviewed, there may still be some phonetic and other typographical errors. These errors are purely grammatical due to imperfections in the software program and should not be construed in any way to compromise the substance of the patient's medical care during this visit.
[2024-06-23 12:52] LABS: Basophils % (Auto) 0 % (0-2.5); Eosinophils # (Auto) 0.1 Thou/mm3 (0.0-0.5); Eosinophils % (Auto) 0 % (0-10); Hematocrit 28.4 % (36.0-46.0); Hemoglobin 9.4 g/dL (12.0-16.0); Immature Granulocytes % (Auto) 3 % (0-0); Immature Granulocytes Auto 0.45 Thou/mm3 (0.00-0.00); Lymphocytes # (Auto) 1.6 Thou/mm3 (1.0-4.8); Lymphocytes % (Auto) 10 % (10-50); Mean Corpuscular HGB Conc 33.1 g/dl (31.0-37.0); Mean Corpuscular Hemoglobin 30.2 pg (25.0-35.0); Mean Corpuscular Volume 91 fL (80-100); Monocytes # (Auto) 0.8 Thou/mm3 (0.0-0.8); Monocytes % (Auto) 5 % (0-12); Neutrophils # (Auto) 13.2 Thou/mm3 (1.8-7.7); Neutrophils % (Auto) 82 % (37-80); Nucleated Red Blood Cell % 0 /100 WBC (0); Platelet Count 201 Thou/mm3 (140-440); RDW Standard Deviation 43.2 fL (36.4-46.3); Red Blood Count 3.11 Miln/mm3 (4.00-5.20); White Blood Count 16.2 Thou/mm3 (3.6-11.0)
[2024-06-23 13:13] LABS: Glucose Estimated Average 166 mg/dL (80-131); Hemoglobin A1C 7.4 % Hgb (4.8-6.0)
[2024-06-23 13:19] LABS: Alanine Aminotransferase 28 U/L (10-49); Albumin, Serum 3.2 gm/dL (3.4-4.8); Alkaline Phosphatase 69 U/L (46-116); Anion Gap 10 (7-16); Aspartate Amino Transferase 29 U/L (0-34); BUN/Creatinine Ratio 24 Ratio (12-20); Bilirubin,Total 0.5 mg/dL (0.3-1.2); Blood Urea Nitrogen 19 mg/dL (9-23); Calcium 8.5 mg/dL (8.3-10.6); Calcium (Corrected) 9.1 mg/dL (8.5-10.1); Carbon Dioxide 25.9 mMol/L (20.0-31.0); Chloride 109 mMol/L (98-107); Creatinine (Component) 0.8 mg/dL (0.6-1.3); Estimated Creatinine Clearance 53.5 mL/min (>60); Globulin 1.6 gm/dL (2.3-3.5); Glucose 165 mg/dL (74-106); Osmolality,Calculated 294 (275-295); Potassium 3.1 mMol/L (3.4-5.1); Sodium 145 mMol/L (136-145); Thyroid Stimulating Hormone 2.35 uIU/mL (0.55-4.78); Total Protein 4.8 gm/dL (5.7-8.2); eGFR > 60 See Note
[2024-06-23] MEDS: oxyCODONE HCL 5 MG IR TAB 10 MG PO ×2 (13:45→22:38)
[2024-06-23] MEDS: ACETAMINOPHEN 500 MG TABLET 1000 MG PO ×3 (13:50→23:33)
[2024-06-23] MEDS: INSULIN LISPRO (AdmeLOG) 1 UNIT/0.01 ML UNIT SC (17:11)
[2024-06-23] MEDS: POTASSIUM CHLORIDE 10% 20 MEQ/15 ML UDC PO (17:12)
[2024-06-23] MEDS: Magnesium Sulfate 2 GM Ivpb 2 GM/50 ML BAG IV (17:13)
[2024-06-23] MEDS: ATORVASTATIN CALCIUM 20 MG TABLET 40 MG PO (20:06)
[2024-06-23] MEDS: LOSARTAN POTASSIUM 25 MG TABLET 50 MG PO (20:07)
--- NOTE | 2024-06-23 23:36 | PC.NURSE ---
Pt complaining of pain not relieved by oxycodone, okay to give tylenol [address] mg [address] Farnsworth.
[2024-06-24] VITALS (8 sets, daily range): BP systolic 92–131; BP diastolic 53–77; PULSE 79–107; RESP 17–20; TEMP 36.3–36.6; O2SAT 92–99; BMI 12.0
[2024-06-24] MEDS: MORPHINE SULF INJ 10 MG/ML VIAL IVP (00:47)
[2024-06-24 06:05] LABS: Basophils % (Auto) 0 % (0-2.5); Eosinophils # (Auto) 0.1 Thou/mm3 (0.0-0.5); Eosinophils % (Auto) 1 % (0-10); Hematocrit 27.9 % (36.0-46.0); Hemoglobin 9.1 g/dL (12.0-16.0); Immature Granulocytes % (Auto) 3 % (0-0); Lymphocytes # (Auto) 1.3 Thou/mm3 (1.0-4.8); Lymphocytes % (Auto) 11 % (10-50); Mean Corpuscular HGB Conc 32.6 g/dl (31.0-37.0); Mean Corpuscular Hemoglobin 30.2 pg (25.0-35.0); Mean Corpuscular Volume 93 fL (80-100); Monocytes # (Auto) 0.9 Thou/mm3 (0.0-0.8); Monocytes % (Auto) 7 % (0-12); Neutrophils # (Auto) 9.6 Thou/mm3 (1.8-7.7); Neutrophils % (Auto) 79 % (37-80); Nucleated Red Blood Cell # 0.02 Thou/mm3 (0.00-0.00); Nucleated Red Blood Cell % 0 /100 WBC (0); Platelet Count 189 Thou/mm3 (140-440); RDW Standard Deviation 46.2 fL (36.4-46.3); Red Blood Count 3.01 Miln/mm3 (4.00-5.20); White Blood Count 12.2 Thou/mm3 (3.6-11.0)
[2024-06-24 06:38] LABS: Anion Gap 6 (7-16); BUN/Creatinine Ratio 26 Ratio (12-20); Blood Urea Nitrogen 21 mg/dL (9-23); Calcium 8.4 mg/dL (8.3-10.6); Carbon Dioxide 27.8 mMol/L (20.0-31.0); Chloride 106 mMol/L (98-107); Creatinine (Component) 0.8 mg/dL (0.6-1.3); Estimated Creatinine Clearance 53.5 mL/min (>60); Glucose 192 mg/dL (74-106); Magnesium 2.4 mg/dL (1.6-2.6); Osmolality,Calculated 287 (275-295); Phosphorous 3.3 mg/dL (2.4-5.1); Potassium 4.4 mMol/L (3.4-5.1); Sodium 140 mMol/L (136-145); eGFR > 60 See Note
[2024-06-24] MEDS: INSULIN LISPRO (AdmeLOG) 1 UNIT/0.01 ML UNIT SC ×3 (07:23→17:27)
--- NOTE | 2024-06-24 08:14 | ESPR_ITS ---
Documentation for date of: 06/24/24 Subjective Subjective Interval history: Patient was seen and examined at the bedside. Patient reported that she has been feeling better however was mildly hypotensive. Temperature was 97.5 Fahrenheit. Patient was saturating well on room air. She reported mild discomfort and pain in her right hip postsurgery. No acute overnight events were reported. Labs revealed improvement in white count and stable hemoglobin. Electrolyte panel was unremarkable. Blood sugars were elevated this morning therefore Lantus 10 units x 1 was given. We started Lantus 10 units subcut for tomorrow. Will hold blood pressure medications due to soft blood pressure. As patient is clinically stable we will sign off from the case. All labs and orders were reviewed. Exam Vital Signs Temp Pulse Resp BP Pulse Ox O2 Del Method O2 Flow Rate 97.8 F 107 H 20 131/77 H 93 L Room Air 1 06/24/24 04:00 06/24/24 06:42 06/24/24 06:42 06/24/24 04:00 06/24/24 06:42 06/24/24 04:00 06/24/24 06:42 Narrative Exam GENERAL APPEARANCE: AxOx4, old female in no acute distress lying comfortably in conversation. Saturating well on 1 L NC. HEENT: NC, AT. MMM. EOMI, clear conjunctiva, oropharynx clear. NECK: Supple without lymphadenopathy. No stiffness or restricted ROM. HEART: Regular rate and regular rhythm, normal S1/S2, no m/r/g LUNGS: CTAB, moving air well. No crackles or wheezes are heard. ABDOMEN: Soft, nontender, nondistended with good bowel sounds heard. BACK: No CVAT, no obvious deformity. EXTREMITIES: Right lower extremity covered in surgical dressing over right hip. No obvious signs of bleeding or bruising. NEUROLOGICAL: Grossly nonfocal. Alert and oriented, x3. CN not formally tested but appear grossly intact. Skin: Warm and dry without any rash. Psych: appropriate mood and affect Objective Labs 06/24/24 04:38 06/24/24 04:38 Labs: Laboratory Results - last 24 hr 06/23/24 06/24/24 12:09 04:38 WBC 16.2 H D 12.2 H RBC 3.11 L 3.01 L Hgb 9.4 L D 9.1 L Hct 28.4 L 27.9 L MCV 91 93 MCH 30.2 30.2 MCHC 33.1 32.6 RDW Std Deviation 43.2 46.2 Plt Count 201 D 189 Neut % (Auto) 82 H 79 Lymph % (Auto) 10 11 [place] % (Auto) 5 7 Eos % (Auto) 0 1 Baso % (Auto) 0 0 Neut # (Auto) 13.2 H 9.6 H Lymph # (Auto) 1.6 1.3 [place] # (Auto) 0.8 0.9 H Eos # (Auto) 0.1 0.1 Baso # (Auto) 0.0 0.0 Immature Gran # (Auto) 0.45 H 0.30 H Absolute Nucleated RBC 0.00 0.02 H Immature Gran % 3 H 3 H Nucleated RBC % 0 0 Sodium 145 140 Potassium 3.1 L 4.4 D Chloride 109 H 106 Carbon Dioxide 25.9 27.8 Anion Gap 10 6 L BUN 19 21 Creatinine 0.8 0.8 Estim Creat Clear Calc 53.5 L 53.5 L eGFR > 60 > 60 BUN/Creatinine Ratio 24 H 26 H Glucose [address] Glu mg/dL 166 H Hemoglobin A1c 7.4 H Calculated Osmolality 294 287 Calcium 8.5 8.4 Corrected Calcium 9.1 Phosphorus 3.3 Magnesium 2.4 Total Bilirubin 0.5 AST 29 ALT 28 Alkaline Phosphatase 69 Total Protein 4.8 L Albumin 3.2 L Globulin 1.6 L Albumin/Globulin Ratio 2.0 TSH 2.35 Quality Measures Quality Measures VTE prophylaxis Advance care planning discussed with:: other Assessment & Plan Assessment Current Active Medications: Generic Name Dose Route Start Last Admin Trade Name Freq PRN Reason Stop Dose Admin Acetaminophen 1,000 mg 06/23/24 12:00 06/24/24 06:04 Acetaminophen 500 Mg Tablet PO 07/23/24 11:59 Not Given Q6HR SRI Apixaban 2.5 mg 06/24/24 21:00 Apixaban 2.5 Mg Tablet PO 07/01/24 09:01 BID SRI Atorvastatin Calcium 40 mg 06/23/24 21:00 06/23/24 20:06 Atorvastatin Calcium 20 Mg Tablet PO 07/23/24 20:59 40 mg HS SRI Administration Protocol Dextrose 25 ml 06/23/24 14:33 Dextrose 50%-Water Inj 50 Ml Syringe IV 07/23/24 14:32 Q15MIN PRN BG 50-70 responsive npo pt Dextrose 50 ml 06/23/24 14:33 Dextrose 50%-Water Inj 50 Ml Syringe IV 07/23/24 14:32 Q15MIN PRN BG <50 OR BG <70 & pt unresponsive Furosemide 40 mg 06/24/24 09:00 Furosemide 40 Mg Tablet PO 07/24/24 08:59 QAM SRI Glucagon 1 mg 06/23/24 14:33 Glucagon Inj 1 Mg Vial IM Q15MIN PRN BG <70, and no IV access Insulin Glargine 10 unit 06/24/24 08:11 Insulin Glargine (Lantus) 5 Unit/0.05 Ml (Per 5 Units) SC 06/24/24 08:12 X1 ONE Insulin Glargine 10 unit 06/25/24 21:00 Insulin Glargine (Lantus) 5 Unit/0.05 Ml (Per 5 Units) SC 07/25/24 20:59 HS SRI Insulin Human Lispro 0 unit 06/24/24 08:12 Insulin Lispro (Admelog) 1 Unit/0.01 Ml Unit SC 07/23/24 16:59 AC SRI Protocol Losartan Potassium 50 mg 06/23/24 21:00 06/23/24 20:07 Losartan Potassium 25 Mg Tablet PO 07/23/24 20:59 50 mg HS SRI Administration Meloxicam 7.5 mg 06/23/24 21:00 06/23/24 20:09 Meloxicam 7.5 Mg Tablet PO 07/23/24 20:59 7.5 mg HS SRI Administration Oxycodone HCl 5 mg 06/23/24 10:40 Oxycodone Hcl 5 Mg Ir Tab PO 06/28/24 10:39 Q6HR PRN PAIN 1-6 (mild-mod Oxycodone HCl 10 mg 06/23/24 10:40 06/23/24 22:38 Oxycodone Hcl 5 Mg Ir Tab PO 06/28/24 10:39 10 mg Q6HR PRN Administration PAIN SCALE 7-10 (Severe Pantoprazole Sodium 40 mg 06/24/24 09:00 Pantoprazole Inj 40 Mg Vial IV 07/24/24 08:59 QDAY SRI Potassium Chloride 10 meq 06/24/24 09:00 Potassium Chloride 10% 20 Meq/15 Ml Udc PO 07/24/24 08:59 QDAY SRI Plan Summary: This patient is a 83-year-old female with longstanding history of right hip pain, hypertension, hyperlipidemia, bilateral PE with history of DVT, osteoarthritis, avascular necrosis of right hip, history of thyroid nodule s/p biopsy, history of MDR UTI presented with chronic history of right hip pain. Patient underwent right hip total arthroplasty secondary to avascular necrosis of right hip. Rapid response was called for hypothermia and internal medicine hospitalist team was consulted.Hypothermia has resolved. #Hypothermia,Resolved #Likely related to anesthesia medications versus postop surgery #Right hip total arthroplasty due to avascular necrosis of right hip ? This morning, rapid response was called for hypothermia. Patient was assessed and was found AOx3. Prior to the rapid response patient underwent right hip total arthroplasty without complication. Estimated blood loss was 450 cc. ? Vitals showed blood pressure 111/52 heart rate 68 bpm, breathing comfortably and saturating well on 1 L NC. ? Post op x-ray hip showed satisfactory alignment - Warm IV solution given 500 cc x1 during rapid response on 06/23 Plan: -Warm blankets as needed -Monitoring rectal temp -Post op pain control and vitals #Leukocytosis,Likely reactive -Likely related to Sx -WBCs 16.2-->12.2 Plan -Monitor fever spike -IV fluids given -F/U on CBC #Normocytic anemia ? Hemoglobin stable ? Patient had an estimated blood loss of 150 cc postsurgery Plan ? PRBC if hemoglobin drops below 7 ? Follow-up on CBC ? Monitor for signs of bleeding #Hypokalemia ? Potassium came out 3.1 Plan: ?Monitor electrolytes #Diabetes likely type II ? A1c came at 7.4 ? Blood glucose 165-->275 Plan: Adeed Lantus 10 units x1 and lantus HS for tomorrow ? Insulin sliding scale with Accu-Cheks ? Hypoglycemia protocol #History of hypertension #History of hyperlipidemia ? Currently blood pressure is stable Plan: ? Hold BP meds due to soft blood pressure ? Continue atorvastatin 40 mg at bedtime #History of DVT and PE ? Patient is currently on Eliquis 5 mg twice daily Plan ? Eliquis 2.5 mg started by ortho team #History of? Heart failure ? Per chart review echocardiogram from May 2023 showed EF 65-70% ? Patient takes Lasix 40 mg once daily Plan: ? No signs of heart failure exacerbation will observe ? No lower extremity edema or JVD noticed ? Currently holding Lasix -- Rest of the management as per ortho team.Thank you for consulting internal medicine team. We will sign off from the case as patient's temperature is within normal limits. Health maintenance Diet: Regular diet DVT prophylaxis: Eliquis 2.5 mg twice daily GI prophylaxis: Protonix 40 mg once daily CODE STATUS: Limited code, intubation only and DO NOT RESUSCITATE Disposition: Patient is currently admitted for right hip total arthroplasty due to right hip avascular necrosis. Internal medicine team consulted for hypothermia. Hypothermia resolved. -- Patient was seen and discussed with attending physician, Dr. Cecy Michel MD, PGY 2 Attending Provider Attestation/Addendum I have discussed and was present for the essential components of the history, physical examination, diagnosis, and treatment plan with the resident. I agree with the patient's care as documented by the resident and amended herein by me. Saran Sam, DO. Patient seen and evaluated this AM. No acute events overnight, patient doing well this morning, normotensive, at this time we will sign off of the case however please feel free to reach out to us if we can further assist, we appreciate the opportunity to participate the care and management of this patient. Although this document has been carefully reviewed, there may still be some phonetic and other typographical errors. These errors are purely grammatical due to imperfections in the software program and should not be construed in any way to compromise the substance of the patient's medical care during this visit.
[2024-06-24] MEDS: INSULIN GLARGINE (Lantus) 5 UNIT/0.05 ML (PER 5 UNITS) 10 UNIT SC (08:25)
[2024-06-24] MEDS: Furosemide 40 MG TABLET PO (08:26)
[2024-06-24] MEDS: PANTOPRAZOLE INJ 40 MG VIAL IV (08:26)
[2024-06-24] MEDS: POTASSIUM CHLORIDE 10% 20 MEQ/15 ML UDC 10 MEQ PO (08:26)
--- NOTE | 2024-06-24 10:18 | PC.SS ---
Initial assessment: this is 83 year old female. Patient appeared alert/oriented to person, place and situation. Patient reports living at home with grandson, Ravinder. Patient confirmed demographic information. Patient assigned her daughter in [place] as her emergency contact. Patient reports requiring some assistance with ADL's. Patient reports having a walker and wheelchair at home to assist with transferring. Patient denies having home O2. Patient's PCP is Mari Crowder. Patient would like to return home upon discharge, family to provide transportation. No needs identified at this time. D/c plan: home Next of kin: daughter in [place]
--- NOTE | 2024-06-24 11:12 | PC.SS ---
Addendum entered by Freida Harrison [facility] 06/24/24 16:11: Updated bed side nurse Evelin. Notified Dr. Wiggins's office to make aware of Home health order as patient was denied SNF placement. Was informed Dr. Wiggins is off today. SS to follow up tomorrow on d/c plan. Addendum entered by Freida Harrison [facility] 06/24/24 15:33: Received voicemail from Gia with [facility]. SNF placement was denied as patient was previously WC bound. Informed patient's daughter in [facility]. they are agreeable with [facility]. Addendum entered by Freida Harrison [facility] 06/24/24 15:05: Called [facility]- spoke with Gia to review clinicals if able to get insurance authorization for SNF. Pending response. Addendum entered by Freida Harrison [facility] 06/24/24 15:02: Family informed preferred SNF is [facility] in [place]. Kendra at [facility] is able to accept the patient if [facility] provides insurance authorization. Addendum entered by Freida Harrison [facility] 06/24/24 13:15: Contacted patient's daughter in [facility] to inform of accepting SNF's: [facility] and [facility]. [place] to call back with preferred SNF. Addendum entered by Freida Harrison [facility] 06/24/24 12:07: SNF inquiry sent via [employer]. Pending responses. Addendum entered by Freida Harrison [facility] 06/24/24 11:52: PASRR completed. Addendum entered by Freida Harrison [facility] 06/24/24 11:52: SS update: met with patient and family at bed side to discuss recommendation for short term SNF. The patient was agreeable. They prefer SNF in [facility], they were informed we will need insurance authorization for SNF placement. Original Note: SS update: PT is recommending short term SNF for the patient as she is max assist. Contacted the patient's daughter in [facility] to discuss the recommendations as the patient mentions she has family support at home. [place] informs she will discuss with the family to determine if able to help patient at home or attempt for short term SNF placement.
[2024-06-24] MEDS: ACETAMINOPHEN 500 MG TABLET 1000 MG PO ×3 (11:31→23:58)
--- NOTE | 2024-06-24 16:07 | PC.NURSE ---
well service derrick worker Freida called to notify me patients insurance did not cover sniff. Insurance will approve home health. Will continue to monitor patient.
--- NOTE | 2024-06-24 19:28 | PD.ORTHCONPN ---
Subjective Subjective Brief History: r hip replacement Narrative: Patient is doing well s/p R CHRISTOPHER on 06/24/2024. She reports the pain is well controlled. SHe worked with PT who is recommending rehab vs snf. Exam Vital Signs Temp Pulse Resp BP Pulse Ox O2 Del Method O2 Flow Rate 97.9 F 96 18 111/57 L 99 Room Air 1 06/24/24 16:00 06/24/24 16:00 06/24/24 16:00 06/24/24 16:00 06/24/24 16:00 06/24/24 16:00 06/24/24 06:42 Additional findings Additional findings: NAD SILT +DP/PT Dressing C/D/I Leg lengths equal +EHL/FHL/PF/DF Objective - Ortho Labs 06/24/24 04:38 06/24/24 04:38 Labs: Laboratory Results - last 24 hr 06/24/24 04:38 WBC 12.2 H RBC 3.01 L Hgb 9.1 L Hct 27.9 L MCV 93 MCH 30.2 MCHC 32.6 RDW Std Deviation 46.2 Plt Count 189 Neut % (Auto) 79 Lymph % (Auto) 11 [place] % (Auto) 7 Eos % (Auto) 1 Baso % (Auto) 0 Neut # (Auto) 9.6 H Lymph # (Auto) 1.3 [place] # (Auto) 0.9 H Eos # (Auto) 0.1 Baso # (Auto) 0.0 Immature Gran # (Auto) 0.30 H Absolute Nucleated RBC 0.02 H Immature Gran % 3 H Nucleated RBC % 0 Sodium 140 Potassium 4.4 D Chloride 106 Carbon Dioxide 27.8 Anion Gap 6 L BUN 21 Creatinine 0.8 Estim Creat Clear Calc 53.5 L eGFR > 60 BUN/Creatinine Ratio 26 H Glucose 192 H Calculated Osmolality 287 Calcium 8.4 Phosphorus 3.3 Magnesium 2.4 Assessment & Plan Diagnosis (1) Arthritis of right hip: Status: Acute Assessment Additional comments: Patient is a 83yo female s/p R CHRISTOPHER. - restart eliquis - PT/OT - WBAT - dispo pending pt and possible snf vs rehab placement Documentation for date of: 06/24/24
[2024-06-24] MEDS: MELOXICAM 7.5 MG TABLET PO (21:01)
[2024-06-24] MEDS: APIXABAN 2.5 MG TABLET PO (21:02)
[2024-06-24] MEDS: ATORVASTATIN CALCIUM 20 MG TABLET 40 MG PO (21:02)
[2024-06-25] VITALS (7 sets, daily range): BP systolic 105–126; BP diastolic 45–70; PULSE 83–98; RESP 17–19; TEMP 36.1–36.6; O2SAT 93–100; BMI 11.0
[2024-06-25] MEDS: ACETAMINOPHEN 500 MG TABLET 1000 MG PO ×3 (05:24→17:45)
[2024-06-25 05:50] LABS: Basophils % (Auto) 0 % (0-2.5); Eosinophils # (Auto) 0.1 Thou/mm3 (0.0-0.5); Eosinophils % (Auto) 1 % (0-10); Hematocrit 24.9 % (36.0-46.0); Immature Granulocytes % (Auto) 2 % (0-0); Immature Granulocytes Auto 0.25 Thou/mm3 (0.00-0.00); Lymphocytes % (Auto) 9 % (10-50); Mean Corpuscular HGB Conc 32.5 g/dl (31.0-37.0); Mean Corpuscular Hemoglobin 30.3 pg (25.0-35.0); Mean Corpuscular Volume 93 fL (80-100); Monocytes # (Auto) 0.7 Thou/mm3 (0.0-0.8); Monocytes % (Auto) 6 % (0-12); Neutrophils # (Auto) 9.9 Thou/mm3 (1.8-7.7); Neutrophils % (Auto) 83 % (37-80); Nucleated Red Blood Cell % 0 /100 WBC (0); Platelet Count 168 Thou/mm3 (140-440); RDW Standard Deviation 47.8 fL (36.4-46.3); Red Blood Count 2.67 Miln/mm3 (4.00-5.20)
[2024-06-25 05:52] LABS: Hemoglobin 8.1 g/dL (12.0-16.0)
[2024-06-25 06:09] LABS: Anion Gap 7 (7-16); BUN/Creatinine Ratio 28 Ratio (12-20); Blood Urea Nitrogen 25 mg/dL (9-23); Calcium 8.1 mg/dL (8.3-10.6); Carbon Dioxide 26.2 mMol/L (20.0-31.0); Chloride 106 mMol/L (98-107); Creatinine (Component) 0.9 mg/dL (0.6-1.3); Estimated Creatinine Clearance 47.6 mL/min (>60); Glucose 167 mg/dL (74-106); Magnesium 2.3 mg/dL (1.6-2.6); Osmolality,Calculated 285 (275-295); Phosphorous 3.7 mg/dL (2.4-5.1); Sodium 139 mMol/L (136-145); eGFR > 60 See Note
[2024-06-25] MEDS: INSULIN LISPRO (AdmeLOG) 1 UNIT/0.01 ML UNIT SC ×2 (07:30→11:31)
[2024-06-25] MEDS: POTASSIUM CHLORIDE 10% 20 MEQ/15 ML UDC 10 MEQ PO (08:22)
[2024-06-25] MEDS: PANTOPRAZOLE INJ 40 MG VIAL IV (08:22)
[2024-06-25] MEDS: APIXABAN 2.5 MG TABLET PO ×2 (08:23→20:07)
[2024-06-25] MEDS: oxyCODONE HCL 5 MG IR TAB 10 MG PO (17:47)
[2024-06-25] MEDS: DOCUSATE SOD 100 MG CAPSULE PO (17:54)
[2024-06-25] MEDS: INSULIN GLARGINE (Lantus) 5 UNIT/0.05 ML (PER 5 UNITS) 10 UNIT SC (20:05)
[2024-06-25] MEDS: MELOXICAM 7.5 MG TABLET PO (20:07)
[2024-06-25] MEDS: ATORVASTATIN CALCIUM 20 MG TABLET 40 MG PO (20:07)
[2024-06-26] VITALS (7 sets, daily range): BP systolic 105–145; BP diastolic 62–82; PULSE 78–94; RESP 16–20; TEMP 36.2–37.2; O2SAT 95–96; BMI 12.0; BMI 34.0
[2024-06-26] MEDS: oxyCODONE HCL 5 MG IR TAB 10 MG PO (03:58)
[2024-06-26] MEDS: ACETAMINOPHEN 500 MG TABLET 1000 MG PO ×4 (05:38→23:45)
[2024-06-26 06:21] LABS: Basophils % (Auto) 0 % (0-2.5); Eosinophils # (Auto) 0.1 Thou/mm3 (0.0-0.5); Eosinophils % (Auto) 1 % (0-10); Hematocrit 24.5 % (36.0-46.0); Immature Granulocytes % (Auto) 2 % (0-0); Immature Granulocytes Auto 0.19 Thou/mm3 (0.00-0.00); Lymphocytes # (Auto) 0.9 Thou/mm3 (1.0-4.8); Lymphocytes % (Auto) 9 % (10-50); Mean Corpuscular HGB Conc 32.2 g/dl (31.0-37.0); Mean Corpuscular Volume 93 fL (80-100); Monocytes # (Auto) 0.6 Thou/mm3 (0.0-0.8); Monocytes % (Auto) 6 % (0-12); Neutrophils # (Auto) 7.8 Thou/mm3 (1.8-7.7); Neutrophils % (Auto) 82 % (37-80); Nucleated Red Blood Cell % 0 /100 WBC (0); Platelet Count 171 Thou/mm3 (140-440); RDW Standard Deviation 47.3 fL (36.4-46.3); Red Blood Count 2.63 Miln/mm3 (4.00-5.20); White Blood Count 9.6 Thou/mm3 (3.6-11.0)
[2024-06-26 06:28] LABS: Hemoglobin 7.9 g/dL (12.0-16.0)
[2024-06-26 06:47] LABS: Anion Gap 4 (7-16); BUN/Creatinine Ratio 30 Ratio (12-20); Blood Urea Nitrogen 21 mg/dL (9-23); Calcium 8.8 mg/dL (8.3-10.6); Carbon Dioxide 27.6 mMol/L (20.0-31.0); Chloride 106 mMol/L (98-107); Creatinine (Component) 0.7 mg/dL (0.6-1.3); Estimated Creatinine Clearance 61.2 mL/min (>60); Glucose 149 mg/dL (74-106); Magnesium 2.2 mg/dL (1.6-2.6); Osmolality,Calculated 281 (275-295); Potassium 4.6 mMol/L (3.4-5.1); Sodium 138 mMol/L (136-145); eGFR > 60 See Note
[2024-06-26] MEDS: APIXABAN 2.5 MG TABLET PO ×2 (08:54→20:40)
[2024-06-26] MEDS: DOCUSATE SOD 100 MG CAPSULE PO (08:55)
[2024-06-26] MEDS: PANTOPRAZOLE INJ 40 MG VIAL IV (08:55)
[2024-06-26] MEDS: POTASSIUM CHLORIDE 10% 20 MEQ/15 ML UDC 10 MEQ PO (08:55)
--- NOTE | 2024-06-26 09:25 | PD.ORTHPN ---
Subjective Subjective Brief History: r hip replacement Narrative: Patient is doing well s/p R CHRISTOPHER on 06/24/2024. She reports the pain is well controlled. SHe worked with PT who is recommending rehab vs snf as they do not think it is safe for her to go home. I also talked to family and they want her to go to SNF as she is walker dependent and is very decompensated functionally with muscle atrophy. Exam Vital Signs Temp Pulse Resp BP Pulse Ox O2 Del Method O2 Flow Rate 97.2 F 79 20 117/62 95 Nasal Cannula 3 06/26/24 07:36 06/26/24 09:03 06/26/24 09:03 06/26/24 07:36 06/26/24 09:03 06/26/24 07:36 06/26/24 09:03 Additional findings Additional findings: NAD AAOx3 SILT +DP/PT Dressing C/D/I Leg lengths equal +EHL/FHL/PF/DF Objective - Ortho Labs 06/26/24 06:00 06/26/24 06:00 Labs: Laboratory Results - last 24 hr 06/26/24 06:00 WBC 9.6 RBC 2.63 L Hgb 7.9 L Hct 24.5 L MCV 93 MCH 30.0 MCHC 32.2 RDW Std Deviation 47.3 H Plt Count 171 Neut % (Auto) 82 H Lymph % (Auto) 9 L [place] % (Auto) 6 Eos % (Auto) 1 Baso % (Auto) 0 Neut # (Auto) 7.8 H Lymph # (Auto) 0.9 L [place] # (Auto) 0.6 Eos # (Auto) 0.1 Baso # (Auto) 0.0 Immature Gran # (Auto) 0.19 H Absolute Nucleated RBC 0.00 Immature Gran % 2 H Nucleated RBC % 0 Sodium 138 Potassium 4.6 D Chloride 106 Carbon Dioxide 27.6 Anion Gap 4 L BUN 21 Creatinine 0.7 Estim Creat Clear Calc 61.2 eGFR > 60 BUN/Creatinine Ratio 30 H Glucose 149 H Calculated Osmolality 281 Calcium 8.8 Phosphorus 3.0 Magnesium 2.2 Assessment & Plan Diagnosis (1) Arthritis of right hip: Status: Acute Assessment Additional comments: Patient is a 83yo female s/p R CHRISTOPHER. SHe was not cleared to go home and will need SNF vs rehab placement - restart eliquis 2.5 mg for 2 weeks then resume full dose - PT/OT - WBAT - dispo pending pt and possible snf vs rehab placement
--- NOTE | 2024-06-26 11:13 | PC.PT ---
This PT asked the SW to refaxed PT notes today to the insurance for possible reconsideration to authorize Short term rehab placement. Dr. Wiggins made aware.
[2024-06-26] MEDS: INSULIN LISPRO (AdmeLOG) 1 UNIT/0.01 ML UNIT SC ×2 (13:05→18:05)
[2024-06-26] MEDS: MELOXICAM 7.5 MG TABLET PO (20:41)
[2024-06-26] MEDS: ATORVASTATIN CALCIUM 20 MG TABLET 40 MG PO (20:42)
[2024-06-26] MEDS: INSULIN GLARGINE (Lantus) 5 UNIT/0.05 ML (PER 5 UNITS) 10 UNIT SC (20:54)
[2024-06-27] VITALS (8 sets, daily range): BP systolic 116–141; BP diastolic 56–73; PULSE 79–103; RESP 16–20; TEMP 36.1–36.2; O2SAT 93–96
[2024-06-27] MEDS: oxyCODONE HCL 5 MG IR TAB 10 MG PO ×2 (06:22→16:19)
[2024-06-27 06:40] LABS: Magnesium 2.1 mg/dL (1.6-2.6); Phosphorous 3.1 mg/dL (2.4-5.1)
[2024-06-27] MEDS: APIXABAN 2.5 MG TABLET PO ×2 (08:29→20:22)
[2024-06-27] MEDS: POLYETHYLENE GLYCOL 17 GM PACKET PO (08:29)
[2024-06-27] MEDS: PANTOPRAZOLE INJ 40 MG VIAL IV (08:29)
[2024-06-27] MEDS: DOCUSATE SOD 100 MG CAPSULE PO (08:29)
[2024-06-27] MEDS: POTASSIUM CHLORIDE 10% 20 MEQ/15 ML UDC 10 MEQ PO (08:29)
[2024-06-27] MEDS: ACETAMINOPHEN 500 MG TABLET 1000 MG PO (12:09)
[2024-06-27] MEDS: INSULIN LISPRO (AdmeLOG) 1 UNIT/0.01 ML UNIT SC (12:17)
--- NOTE | 2024-06-27 15:37 | PC.SS ---
SS submitted updated PT notes via [facility] to [facility] and [facility]
--- NOTE | 2024-06-27 16:05 | PD.ORTHPN ---
Subjective Subjective Brief History: r hip replacement Narrative: Patient is doing well s/p R CHRISTOPHER on 06/24/2024. She reports the pain is well controlled. SHe worked with PT who is recommending rehab vs snf as they do not think it is safe for her to go home. I also talked to family and they want her to go to SNF as she is walker dependent and is very decompensated functionally with muscle atrophy. SHe is awaiting placement Exam Vital Signs Temp Pulse Resp BP Pulse Ox O2 Del Method O2 Flow Rate 97.1 F 87 16 121/72 95 Nasal Cannula 3 06/27/24 12:00 06/27/24 12:00 06/27/24 12:00 06/27/24 12:00 06/27/24 12:00 06/27/24 12:00 06/27/24 12:00 Additional findings Additional findings: NAD AAOx3 SILT +DP/PT Dressing C/D/I Leg lengths equal +EHL/FHL/PF/DF Objective - Ortho Labs 06/26/24 06:00 06/26/24 06:00 Labs: Laboratory Results - last 24 hr 06/27/24 05:28 Phosphorus 3.1 Magnesium 2.1 Assessment & Plan Diagnosis (1) Arthritis of right hip: Status: Acute Assessment Additional comments: Patient is a 83yo female s/p R CHRISTOPHER. SHe was not cleared to go home and will need SNF vs rehab placement - restart eliquis 2.5 mg for 2 weeks then resume full dose - PT/OT - WBAT - dispo pending pt and possible snf vs rehab placement
[2024-06-27] MEDS: MELOXICAM 7.5 MG TABLET PO (20:23)
[2024-06-27] MEDS: ATORVASTATIN CALCIUM 20 MG TABLET 40 MG PO (20:23)
[2024-06-27] MEDS: INSULIN GLARGINE (Lantus) 5 UNIT/0.05 ML (PER 5 UNITS) 10 UNIT SC (20:25)
[2024-06-28] VITALS (7 sets, daily range): BP systolic 108–135; BP diastolic 63–83; PULSE 72–114; RESP 17–19; TEMP 35.9–36.6; O2SAT 90–97; BMI 11.0
[2024-06-28] MEDS: ACETAMINOPHEN 500 MG TABLET 1000 MG PO ×2 (00:14→19:20)
[2024-06-28] MEDS: DOCUSATE SOD 100 MG CAPSULE PO (08:19)
[2024-06-28] MEDS: POLYETHYLENE GLYCOL 17 GM PACKET PO (08:19)
[2024-06-28] MEDS: PANTOPRAZOLE INJ 40 MG VIAL IV (08:20)
[2024-06-28] MEDS: APIXABAN 2.5 MG TABLET PO ×2 (08:20→20:03)
[2024-06-28] MEDS: POTASSIUM CHLORIDE 10% 20 MEQ/15 ML UDC 10 MEQ PO (08:20)
--- NOTE | 2024-06-28 09:26 | PC.SS ---
Addendum entered by Alexa Clark 06/28/24 16:02: SS cancelled [facility] transportation. Nursing indicated patient has not had a b.m. since the 4th. They notified facility and they cannot take patient until she has a b.m. D/c held for either later this evening or tomorrow. Addendum entered by Alexa Clark 06/28/24 15:15: SS received auth for patient to d/c to SNF. SS attempted [facility] to set up gurney transport. They state patient's insurance termed. They could not assist. SS set up gurney through [facility]. Updated family. They could not afford. SS scheduled gurney transport for potato picker of 4:30p.m. Nursing aware. Addendum entered by Alexa Clark 06/28/24 11:25: SS spoke to Jordyn Arvizu and they re-evaluated PT notes and will now auth for SNF short term. SS spoke to daughter in law and their preference is [facility]. SS updated [facility] and waiting on approval. Dc today. Original Note: Follow up note: SS read the weekend notes. Patient was originally denied SNF placement by insurance co. However, PT worked with patient again and patient history is she used a walker short distances. PT recommends short stay at SNF. They feel not safe for patient to return home at this time. SS will verify if [facility] received updated PT notes. SNF vs .
[2024-06-28] MEDS: bisacodyL 5 MG TABEC PO (12:43)
[2024-06-28] MEDS: bisacodyL 10 MG SUPP PR (15:22)
--- NOTE | 2024-06-28 16:41 | PC.NURSE ---
Report given to Mayra at [facility]. --Ja
[2024-06-28] MEDS: INSULIN LISPRO (AdmeLOG) 1 UNIT/0.01 ML UNIT SC (17:15)
--- NOTE | 2024-06-28 17:35 | PC.SS ---
Ambulance transport scheduled for 09:00 pm kristal. [employer] notified bedside nurse and [facility], [facility] to provide transportation.
[2024-06-28] MEDS: MELOXICAM 7.5 MG TABLET PO (20:03)
[2024-06-28] MEDS: ATORVASTATIN CALCIUM 20 MG TABLET 40 MG PO (20:03)
== END 2024-06-28 21:20 | disposition skilled nursing facility (03) | DRG 470 ==
LOC: S3NX 06-24 07:23 → S3SX 06-26 06:34
PROVIDERS: Anesthesiology; Student in an Organized Health Care Education/Training Program; Admitting Provider Orthopaedic Surgery Adult Reconstructive Orthopaedic Surgery; PCP Physician Assistant; Referring Provider Student in an Organized Health Care Education/Training Program; Visit Provider Orthopaedic Surgery Adult Reconstructive Orthopaedic Surgery
PROC: 0SR90JZ Replacement of Right Hip Joint with Synthetic Substitute, Open Approach (ICD-10-PCS; CPT 27130; principal; 2024-06-23 07:30)
DX: M87.851 Other osteonecrosis, right femur (principal); I10 Essential (primary) hypertension; E78.5 Hyperlipidemia, unspecified; E04.1 Nontoxic single thyroid nodule; E87.6 Hypokalemia; T88.51XA Hypothermia following anesthesia, initial encounter; D64.9 Anemia, unspecified; E11.9 Type 2 diabetes mellitus without complications; I11.0 Hypertensive heart disease with heart failure; M16.11 Unilateral primary osteoarthritis, right hip; I50.9 Heart failure, unspecified; E87.8 Other disorders of electrolyte and fluid balance, not elsewhere classified; I95.9 Hypotension, unspecified; D72.829 Elevated white blood cell count, unspecified; Z86.711 Personal history of pulmonary embolism; Z66 Do not resuscitate; Z86.718 Personal history of other venous thrombosis and embolism; Z79.01 Long term (current) use of anticoagulants; Z79.4 Long term (current) use of insulin; Z79.899 Other long term (current) drug therapy; Z87.891 Personal history of nicotine dependence; Z90.710 Acquired absence of both cervix and uterus
CPT/HCPCS: 36415; 73501; 73502; 80048; 80053; 83036; 83735; 84100; 84443; 85025; 85610; 85730; 93005; 97162; A4217; A4649; C1713; C1776; J0690; J0694; J1815; J2270; J2470; J2704; J2795; J3010; J3475; J3490; J7030; J7120; J7999; A4648; A9270

== ENCOUNTER 2024-07-03 17:52 | Inpatient (IN) | payer OTHER, MEDICARE, SELFPAY ==
[2024-07-03 17:55] VITALS: PULSE 88; RESP 18; O2SAT 99; BMI 28.1
[2024-07-03 18:01] VITALS: BP 123/63; PULSE 91; RESP 18; TEMP 36.8; O2SAT 95
--- NOTE | 2024-07-03 18:14 | EKG_ITS ---
[facility] Test Date: 2024-07-03 Pat Name: NIGHAT GRIJALVA Department: Room: - Gender: Female Machine Tool Builder: : 1940 Requested By: David Breaux Order Number: [id number] Reading MD: David Breaux Measurements Intervals [place] Rate: 93 P: 34 OK: 140 QRS: 16 QRSD: 94 T: 65 QT: 355 QTc: 442 Interpretive Statements SINUS RHYTHM Compared to ECG 06/18/2024 15:08:52 Sinus arrhythmia no longer present Myocardial infarct finding no longer present /[id number]
[2024-07-03 18:15] VITALS: PULSE 88; RESP 18; O2SAT 99; BMI 25.9
--- NOTE | 2024-07-03 18:25 | PD.EDEXREM ---
ED Extremity Problem RME/HPI General Chief complaint: Extremity Problem,Nontraumatic Stated complaint: POSSIBLE DVT, LEG SWOLLEN. RECENT HIP SURG Time Seen by Provider: 07/03/24 18:08 Arrival date/time: 07/03/24 17:52 RME / HPI RME / HPI Narrative: DR. ENGEL MAIN ED EVALUATION: 83 year old female presents to the Emergency Department BIBA from [facility] with complaints of low hemoglobin and right leg swelling. Patient had recent right hip surgery on 06/23/[address] Wiggins; patient was then discharged to [facility] and has been there a few days. There is a bruise in the right lower leg but patient denies any fall or injury. PMHx: Right lower extremity DVT (06/11/2023), bilateral pulmonary emboli 06/25/2023, on Eliquis. History of right hip osteoarthritis. History of bilateral pleural effusion as well as pericardial effusion; being followed by Dr. Michael Figueredo for congestive heart failure. Social Hx: No tobacco, alcohol, or substance use. Related Data Home Medications ?Medication ?Instructions ?Recorded ?Confirmed simvastatin 40 mg tablet 40 mg PO HS ##90 07/26/06/18/24 pantoprazole 40 mg tablet,delayed 40 mg PO QDAY 06/12/23 06/18/24 release furosemide 40 mg tablet (Lasix) 40 mg PO QAM 06/18/24 06/18/24 losartan 50 mg tablet 100 mg PO HS 06/18/24 06/18/24 potassium chloride 10 mEq 10 meq PO QDAY 06/18/24 06/18/24 tablet,extended release (Klor-Con) Previous Rx's ?Medication ?Instructions ?Recorded apixaban 5 mg (74 tabs) tablets in 5 mg PO BID #74 tabs 06/14/23 a dose pack acetaminophen 500 mg tablet 1,000 mg (2 x 500 mg) PO Q6H PRN 06/28/24 (Acetaminophen Extra Strength) pain #90 tabs doxycycline hyclate 100 mg tablet 100 mg PO BID #14 tabs 06/28/24 gabapentin 300 mg capsule 300 mg PO .qhs #30 caps 06/28/24 oxycodone 5 mg tablet 5 mg PO Q6H PRN pain #28 tabs 06/28/24 sennosides 8.6 mg-docusate sodium 1 tab-cap PO QDAY #30 tabs 06/28/24 50 mg tablet (Senna-S) Allergies Allergy/AdvReac Type Severity Reaction Status Date / Time heparin Allergy Verified 06/23/24 06:16 Review of Systems Review of Systems Systems Reviewed: All systems reviewed, normal except as documented Past Medical History Past Medical History CARDIAC: Positive Cardiac Disorders, Hypercholesterolemia, Congestive Heart Failure, Edema and Hypertension RESPIRATORY: Positive Pulmonary Embolism (2023, IVC filter) GASTROINTESTINAL: Positive Gastrointestinal Disorders and Gastroesophageal Reflux Disease REPRODUCTIVE: Positive Previous Pregnancies MUSCULOSKELETAL: Positive Musculoskeletal Disorders and Arthritis (OSTEOARTHRITIS) ENT: Positive Cataracts (ade) OTHER HISTORY: Positive Hospitalization and Falls Family History FAMILY HISTORY: Positive Family Cancer Surgical History SURGICAL: Positive Thyroidectomy (lobectomy), Hysterectomy and Section (2) Social History SMOKING STATUS: Never smoker SUBSTANCE USE: does not use ALCOHOL: Never ED Exam Narrative Physical exam: GENERAL APPEARANCE:? alert and oriented x 4, well-developed, well-nourished HEENT: Normocephalic, atraumatic; pupils equal, round, reactive to light; EOMI; mucous membranes pink, moist; oropharynx clear NECK: Supple LUNGS: CTABL; no wheezes, no rales, no rhonchi HEART: Regular rate, regular rhythm; normal S1, S2; no murmurs ABDOMEN: non distended; normal BS;? soft, no tenderness, no guarding, no rebound; no masses, no organomegaly, no hernia?? BACK:? no CVA tenderness EXTREMITIES:? There is 3+ pitting edema on the right lower extremity; there is an area of echymosis to the anterior medial aspect of the right lower extremity with surrounding erythema but no warmness noted. The lateral aspect of the right hip surgical site has no signs of infection, no drainage, no puss, no surrounding erythema and no tenderness on palpation. NEUROLOGIC: awake; alert and oriented x4; cranial nerves II-XII grossly intact; no focal sensory or motor deficits PSYCHIATRIC:? appropriate mood and affect SKIN: warm, dry, normal color; no rashes Course Quality Measures none Orders Category Date Time Status Admit to Inpatient Status Routine Admission 07/03/24 22:06 Active Patient Condition Routine Admission 07/03/24 22:06 Ordered Brick Off Bearer STAT Care 07/03/24 18:27 Active Continuous Pulse Oximetry ONCE Care 07/03/24 18:27 Active EKG (ED ONLY) *Do not use* NOW Care 07/03/24 18:14 Completed Insert IV STAT Care 07/03/24 18:27 Active Notify provider NEEDED Care 07/03/24 22:06 Active Urinary Catheter STAT Care 07/03/24 18:27 Active Vital Signs, Non-Routine Q4H Care 07/03/24 22:15 Ordered EKG (ED Only) Stat Exams 07/03/24 18:14 Draft US venous doppler LE RT Stat Exams 07/03/24 18:24 Completed XR chest 1V portable Stat Exams 07/03/24 18:27 Completed Blood Culture (Lab) Stat Lab 07/03/24 19:02 Received CBC Stat Lab 07/03/24 18:40 Completed Comprehensive Metabolic Panel Stat Lab 07/03/24 18:40 Completed Fecal Globin by Immunochem* Routine Lab 07/03/24 Ordered Ferritin Stat Lab 07/03/24 18:40 Completed Iron Panel Stat Lab 07/03/24 18:40 Completed Lactate (Lactic Acid) Stat Lab 07/03/24 18:40 Completed Magnesium Stat Lab 07/03/24 18:40 Completed Partial Thromboplastin Time Stat Lab 07/03/24 18:40 Completed Procalcitonin Stat Lab 07/03/24 18:40 Completed Prothrombin Time with INR Stat Lab 07/03/24 18:40 Completed Reticulocyte Count Stat Lab 07/03/24 18:40 Completed Troponin I Stat Lab 07/03/24 18:40 Completed Urinalysis, C/S if Indicated Stat Lab 07/03/24 20:35 Completed Phenazopyridine HCl [Pyridium] Med 07/03/24 18:47 Discontinued 100 mg PO X1 ONE cefTRIAXone [Rocephin] 1,000 mg Med 07/03/24 18:48 Discontinued SODIUM CHLORIDE 0.9% (Popper) [Ns 0.9% (P)] 50 ml IV X1 Code Status Routine Oth 07/03/24 22:06 Completed Code Status Routine Oth 07/03/24 22:10 Ordered Vital Signs Vital signs: Vital Signs Temperature 98.3 F 07/03/24 18:01 Pulse Rate 91 07/03/24 18:01 Respiratory Rate 18 07/03/24 18:01 Blood Pressure 123/63 07/03/24 18:01 Pulse Oximetry (%) 95 07/03/24 18:01 Oxygen Delivery Method Nasal Cannula 07/03/24 18:01 Oxygen Flow Rate 3 07/03/24 18:01 Procedures -ED EKG Interpretation #1: Date of EK07/03/24 Time of EK:25 Rate: 93 Interpretation: Interpreted by me Additional EKG comment: sinus rhythm, rate 93, normal intervals, normal axis, no STEMI Extremity Problem MDM Narrative MDM Narrative:: I, Maggy Mitchell, am scribing for and in the presence of Dr. Engel. Patient data External records reviewed:: [facility] previous records (Reviewed right hip surgery note on 06/23/[address] Wiggins), EMS form and Group [facility] records Clinical information provided by:: patient and EMS Social determinants that could affect healthcare access:: housing ([facility]) Patient has the following chronic illnesses:: Right lower extremity DVT (06/11/2023), bilateral pulmonary emboli 06/25/2023, on Eliquis. History of right hip osteoarthritis. History of bilateral pleural effusion as well as pericardial effusion; being followed by Dr. Michael Figueredo for congestive heart failure. How is presenting disease/condition affected by chronic disease/condition?: exacerbated by Evaluation data The following diagnostics were reviewed and interpreted by me:: lab results, radiology exam(s) and EKG tracing(s) Lab and/or radiology exams considered but not ordered:: none Interpretation Summary: 1 view portable chest xray My interpretation: Lungs clear, no consolidation, normal cardiac silhouette, soft tissue normal, no pulmonary infiltrates I disagree with report by Dr. Gimenez (see below), there is no left lower pneumonia and patient also does not report any shortness of breath, cough, congestion, or other flu-like symptoms. RADIOLOGY Procedure(s): XR chest 1V portable Accession Number(s): [id number] cc: Jack Gimenez MD; David Engel MD~ Examination: AP chest single view Technique: AP portable upright chest single view Exam date and time: [id number] hrs. Comparison June 25, 2023 Indications: Chest pain today Findings: Mild prominence left ventricle Pneumonia left base obscuring detail left hemidiaphragm Mild vascular congestion. Mild prominence left ventricle Moderate osteopenia Impression: Left base pneumonia Dictated By: Jack Gimenez MD Procedure(s): US venous doppler LE RT Accession Number(s): [id number] cc: Jack Gimenez MD; Mari Crowder PA-C; David Engel MD~ Examination: Duplex scan of the lower extremity, unilateral right complete Date and time of exam: July 03, 2024, 1911 hrs. Indications: Right leg pain beginning 3 days ago, history June 30, 2024 Technique: Duplex scan of the extremity veins using B-mode/grayscale imaging and Doppler spectral analysis and color flow Attention is directed to internal echogenicity, compression and augmentation involving these veins, color flow assessment, spectral analysis Findings: Positive for deep vein thrombus right superficial femoral vein and right popliteal vein Right posterior tibial vein is not visualized Impression: Positive for DVT proximal mid right superficial femoral vein, right popliteal vein Dictated By: Jack Gimenez MD Medications / Prescriptions Medications or Prescriptions considered but not ordered:: none Medication administrations:: Medication Administration History Discontinued Medications Ceftriaxone Sodium 1,000 mg/ (Sodium Chloride) 50 mls @ 100 mls/hr IV X1 ONE Stop: 07/03/24 19:17 Last Infusion: 07/03/24 20:08 Dose: Infused Documented By: Admin: 07/03/24 19:38 Dose: 100 mls/hr Documented By: ERASTO Phenazopyridine HCl (Phenazopyridine Hcl 100 Mg Tablet) 100 mg PO X1 ONE Stop: 07/03/24 18:48 Last Admin: 07/03/24 19:38 Dose: 100 mg Documented By: ERASTO see above Consultations Consultation(s) initiated? (list below): Yes Consultation #1 (Physician, Specialty, Details): Discussed test HPI, PMHx, lab, radiology results and/or management with ortho Dr. Wiggins. Dr. Wiggins does not think that the patient needs to be admitted. Time: 20:00 Consultation #2 (Physician, Specialty, Details): Discussed test HPI, PMHx, lab, radiology results and/or management with resident working with hospitalist Dr. Schulte. Will admit for further evaluation and management. Accepts patient for admission. Time: 21:30 Diagnosis Extremity Problem Differential Diagnosis: cellulitis, superficial thrombophlebitis, lower extremity edema and deep vein thrombosis of lower extremity Most likely diagnosis given after review of the tests above:: Symptomatic anemia Right lower extremity DVT Admission Indicated Admission indicated?: not indicated Admission Request Was there a request for admission?: Yes Admission Attestation Admission request attestation: Discussed case with [] from Hospitalist service regarding admission. Discussed patients ED course, exam findings, labs, and radiology results. The Hospitalist [agrees,declines] to accept the patient for admission. Disposition Plan Disposition Plan: Admit Discharge Plan Plan Patient Disposition: Admit Acute Care w/in Hospital Prescriptions/Referrals Prescriptions/Med Rec: No Action simvastatin 40 MG tablet 40 mg PO HS Qty: 90 pantoprazole 40 mg tablet,delayed release (DR/EC) 40 mg PO QDAY apixaban 5 mg (74 tabs) tablets,dose pack 5 mg PO BID Qty: 74 0RF losartan 50 mg tablet 100 mg PO HS potassium chloride [Klor-Con 10] 10 mEq tablet extended release 10 meq PO QDAY furosemide [Lasix] 40 mg tablet 40 mg PO QAM sennosides-docusate sodium [Senna-S] 8.6-50 mg tablet 1 tab-cap PO QDAY Qty: 30 0RF acetaminophen [Acetaminophen Extra Strength] 500 mg tablet 1,000 mg PO Q6H MDD 1000mg PRN (Reason: pain) Qty: 90 0RF gabapentin 300 mg capsule 300 mg PO .qhs Qty: 30 0RF doxycycline hyclate 100 mg tablet 100 mg PO BID Qty: 14 0RF oxycodone 5 mg tablet 5 mg PO Q6H MDD 20 PRN (Reason: pain) Qty: 28 0RF Rx Instructions: z96.65 Referrals: Mari Crowder PA-C [Primary Care Provider] - In 1 week Problem List Clinical Impression: Symptomatic anemia, Deep vein thrombosis of right lower extremity Patient/Caregiver Discharge Instructions Print Language: Burmese Stand Alone Forms: Mayra Award Info., Patient Portal Info Letter
[2024-07-03 18:32] VITALS: BP 131/61; PULSE 95; RESP 20; TEMP 36.8; O2SAT 98
[2024-07-03 18:57] LABS: Lactate (Lactic Acid) 1.2 mMol/L (0.4-2.0)
[2024-07-03 19:00] LABS: Basophils % (Auto) 0 % (0-2.5); Eosinophils # (Auto) 0.3 Thou/mm3 (0.0-0.5); Eosinophils % (Auto) 3 % (0-10); Immature Granulocytes % (Auto) 5 % (0-0); Immature Granulocytes Auto 0.47 Thou/mm3 (0.00-0.00); Immature Reticulocyte Fraction 36.5 % (3.0-15.9); Lymphocytes # (Auto) 1.3 Thou/mm3 (1.0-4.8); Lymphocytes % (Auto) 12 % (10-50); Mean Corpuscular HGB Conc 31.2 g/dl (31.0-37.0); Mean Corpuscular Hemoglobin 29.2 pg (25.0-35.0); Mean Corpuscular Volume 94 fL (80-100); Monocytes # (Auto) 0.7 Thou/mm3 (0.0-0.8); Monocytes % (Auto) 6 % (0-12); Neutrophils # (Auto) 7.4 Thou/mm3 (1.8-7.7); Neutrophils % (Auto) 73 % (37-80); Nucleated Red Blood Cell # 0.02 Thou/mm3 (0.00-0.00); Nucleated Red Blood Cell % 0 /100 WBC (0); Platelet Count 306 Thou/mm3 (140-440); RDW Standard Deviation 52.5 fL (36.4-46.3); Red Blood Count 2.67 Miln/mm3 (4.00-5.20); Reticulocyte % (Auto) 8.6 % (0.5-1.5); Reticulocyte Absolute Auto 230.7 Biln/L (25.0-75.0); Reticulocyte Hgb Content 28.3 pg (28.0-35.0); White Blood Count 10.2 Thou/mm3 (3.6-11.0)
[2024-07-03 19:03] LABS: Hemoglobin 7.8 g/dL (12.0-16.0)
[2024-07-03 19:15] LABS: INR 1.1 (0.9-1.3); Partial Thromboplastin Time 34.5 Seconds (22.0-36.0); Prothrombin Time 12.2 Seconds (9.0-12.2)
[2024-07-03 19:26] LABS: Alanine Aminotransferase 11 U/L (10-49); Albumin, Serum 3.5 gm/dL (3.4-4.8); Albumin/Globulin Ratio 1.4 (1.2-2.2); Alkaline Phosphatase 134 U/L (46-116); Anion Gap 10 (7-16); Aspartate Amino Transferase 14 U/L (0-34); BUN/Creatinine Ratio 31 Ratio (12-20); Bilirubin,Total 0.7 mg/dL (0.3-1.2); Blood Urea Nitrogen 25 mg/dL (9-23); Calcium 9.4 mg/dL (8.3-10.6); Calcium (Corrected) 9.8 mg/dL (8.5-10.1); Carbon Dioxide 24.1 mMol/L (20.0-31.0); Chloride 104 mMol/L (98-107); Creatinine (Component) 0.8 mg/dL (0.6-1.3); Globulin 2.5 gm/dL (2.3-3.5); Glucose 122 mg/dL (74-106); Magnesium 1.9 mg/dL (1.6-2.6); Osmolality,Calculated 281 (275-295); Procalcitonin 0.31 ng/ml (0.0-0.49); Sodium 138 mMol/L (136-145); Troponin I < 0.020 ng/mL (0.0-0.045); eGFR > 60 See Note
[2024-07-03] MEDS: PHENAZOPYRIDINE HCL 100 MG TABLET PO (19:38)
[2024-07-03] MEDS: cefTRIAXone 1,000 MG in SODIUM CHLORIDE 0.9% (Popper) 50 ML 100 MG IV (19:38)
[2024-07-03 20:41] LABS: Collection Type, Urine Catheter; RBC,Urine 0 /hpf (0-3); WBC,Urine 0 /hpf (0-5)
--- NOTE | 2024-07-03 20:54 | PRELIM_ITS ---
Right lower extremity venous Doppler ultrasound; July 03, 2024 at 1911 hours Clinical history: Several days postop right hip. Now red/swollen/pain. Technique: Duplex scan of the right lower extremity deep venous systems was performed utilizing 2D grayscale imaging, Doppler spectral analysis and color flow Doppler and with compression. Comparison: No prior study is available for comparison at the time of interpretation. Findings: Malik scale, color flow and spectral Doppler evaluation of the right lower extremity deep veins were performed. The proximal/mid superficial femoral and popliteal veins are noncompressible and demonstrate internal echoes. The common femoral and distal superficial femoral veins are patent and compressible with normal respiratory variation. The great saphenous vein is patent and compressible at the level of the saphenofemoral junction. The peroneal vein is patent. The posterior tibial vein is not visualized/demonstrated. Subcutaneous edema is demonstrated in the right lower extremity. Impression: Deep vein thrombosis of the right proximal/mid superficial femoral and popliteal veins as described. Report Electronically Signed By: Lul Villalobos 07/03/2024 8:52:50 PM [EST]
[2024-07-03 20:56] LABS: Bacteria,Urine Rare; Bilirubin,Urine Negative (Negative); Blood,Urine Negative (Negative); Clarity,Urine Turbid (Clear/Hazy); Color,Urine Lt-Yellow (Lt Yel-Yel); Culture Indicated,Urine Not Indicated; Glucose, Urine Negative (Negative); Hyaline Casts,Urine < 1 /hpf (0-1); Ketones,Urine Negative (Negative); Leukocyte Esterase,Urine Negative (Negative); Nitrite,Urine Negative (Negative); Protein,Urine Negative (Neg - Trace); Specific Gravity,Urine 1.011 (1.001-1.035); Squamous Epithelial Cell,Urine 6 /hpf (0-5); Urobilinogen,Urine Negative mg/dL (0.0-1.0)
[2024-07-03 21:42] LABS: Ferritin 138 ng/mL (7.3-270.7); Iron 32 mcg/dL (50-170); Percent Iron Saturation 10 % (20-55); Total Iron Binding Capacity 309 mcg/dL (250-425); Unsaturated Iron Binding 277 (225-295)
[2024-07-03 22:39] VITALS: BP 117/54; PULSE 91; RESP 17; TEMP 37.1; O2SAT 96
[2024-07-03 23:17] VITALS: BP 101/64; PULSE 90; RESP 17; TEMP 37.2; O2SAT 95
--- NOTE | 2024-07-03 23:56 | ESHP_ITS ---
<Statement entered by Tomasz Schulte MD - 07/06/24 22:56> 83-year-old female with multiple comorbidities including hypertension, hyperlipidemia, DVT and bilateral PE on Eliquis, recent total hip replacement June 25, 2023 and thyroid nodule status post biopsy awaiting results who presented with weakness and fatigue. Further workup revealed that patient has symptomatic anemia with baseline hemoglobin at 12 however on this admission noted to be 7.8 with unknown etiology however T. bili is normal to suggest hemolysis and will obtain reticulocyte count to evaluate for bone marrow suppression and further studies for autoimmune workup including haptoglobin and LDH. Will also obtain an FOBT to make sure patient does not have any GI bleed given that patient is on Eliquis. Plan to monitor hemoglobin closely and admit patient to telemetry. I reviewed above note and agree with findings and plans. I have also personally examined the patient with medicine team and went over assessment and plan with medical team including international project engineer and resident physician. Documentation for date of: 07/03/24 HPI History of Present Illness History of present illness: Maria Luisa is a 83 y/o female with PMHx total hip replacement (performed by Dr. Wiggins on June 24) hypertension, hyperlipidemia, bilateral PE, DVT (on Eliquis), avascular necrosis of right hip, history of thyroid nodule s/p biopsy, MDR UTI who comes in for an evaluation of generalized weakness and fatigue. Patient reports that she was [facility] in which she has been out for rehabbing her hip as she just got her hip replaced performed by Dr. Wiggins. She also said that she has been getting her blood levels checked. She also noticed that there was some cramping in her right lower extremity that she is unsure if she had before, however it is painful. She also noticed some swelling in her legs. She also gets her blood work done routinely and has said that her blood levels show anemia. She takes her medicines as prescribed. She does endorse a history of bilateral PE and DVT. She says she has been on Eliquis and says that she has to take it indefinitely. She denies any chest pain, shortness of breath, nausea vomiting diarrhea. She denies having any blood in her stool, or vomiting of blood. I spoke with daughter who also says that patient had mechanical thrombectomy done in [place] for her bilateral PE that was done last year. She also says that she was wheelchair-bound and decided to get her hip replaced. She also said that she is seeing Dr. Cortés who also told her that she has to be on this blood thinner indefinitely. She denies any recent travel. No complaints at this time ED course: Patient arrived to the ED with a temperature of 98.3, heart rate of 91, blood pressure of 123/63, respiratory rate of 18, saturating 95% on 2 L nasal cannula. Rectum was found to have sodium 138, potassium 4, BUN/creatinine 25 0.8 respectively, white count 10.2, hemoglobin 7.8, platelets 306. Urinalysis was negative for leukocyte esterase, nitrates but had rare bacteria. EKG showed normal sinus rhythm rate of 93. He was worked up with a venous Doppler lower extremities and was found to have positive DVT with a mid right proximal superficial femoral vein, popliteal vein. Medicine was consulted and patient was made to floors. Past medical history: As above Surgical history 2 C-sections, hysterectomy, total right hip replacement (performed on June 24, 2024) Allergies: No known allergies Medicines: Eliquis 5 mg twice daily, simvastatin 40 mg, Percocet 5 mg every 6 hours as needed, losartan 100 mg, glargine, lispro, gabapentin Family history: No family history of blood clots, stroke. No history positive for diabetes Social history: Lives in [place], [place], settled in [place]. with 2 kids that live in the [place]. Has never been a heavy drinker, no smoking history, no history of oral or IV drug use. Has been. Review of Systems Review of Systems Narrative Review of Systems: Constitutional: No fever, chills, positive fatigue, positive weakness, no weight loss HEENT: No eye pain, vision loss, ear pain, hearing loss, dysphagia, Cardiovascular: No chest pain, palpitations, edema, pain with walking Respiratory: No cough, shortness of breath, wheezing GI: No NVD, abdominal pain, constipation, blood in stool, loss of appetite, heartburn Extremities: No presence of pitting edema MSK: No back pain, joint pain, positive pain and swelling in right lower extremity Neuro: No dizziness, numbness, weakness, headaches, seizures, tremors Psych: No anxiety, depression Exam Vital Signs Temp Pulse Resp BP Pulse Ox O2 Del Method O2 Flow Rate 98.9 F 90 17 101/64 95 Nasal Cannula 3 07/03/24 23:17 07/03/24 23:17 07/03/24 23:17 07/03/24 23:17 07/03/24 23:17 07/03/24 23:17 07/03/24 23:17 Narrative Exam General: AAOx3, NAD, pleasant elderly woman, frail HEENT: Dry mucous membranes, conjunctiva clear, EOMI, PERRLA, missing some dentition Cardiovascular: Systolic ejection murmur heard upon right upper sternal border, radial pulses +2 bilat, RRR Pulmonary: CTAB bilat no cough, no wheezing GI: No tenderness to light or deep palpitation, no guarding, rigidity, rebound tenderness or distension MSK: Right hip with bandage status post total hip replacement, no active erythema, tender to palpation, Extremities: Right lower extremity +2 pitting edema, warm to touch, tender to palpation, swelling near gastrocnemius, left lower extremity trace edema Neuro: AAOx3, no focal motor or sensory deficits in the UE or LE bilat Psych: Good judgement, thought and behavior. Cooperative Results: Labs 07/03/24 18:40 07/03/24 18:40 Labs: Short CBC 07/03/24 Range/Units 18:40 WBC 10.2 (3.6-11.0) Thou/mm3 Hgb 7.8 L (12.0-16.0) g/dL Hct 25.0 L (36.0-46.0) % Plt Count 306 D (140-440) Thou/mm3 BMP 07/03/24 18:40 Sodium 138 Potassium 4.0 Chloride 104 Carbon Dioxide 24.1 BUN 25 H Creatinine 0.8 Glucose 122 H Calcium 9.4 Cardiac Enzymes 07/03/24 Range/Units 18:40 Troponin I < 0.020 (0.0-0.045) ng/mL Liver Function 07/03/24 Range/Units 18:40 Total Bilirubin 0.7 (0.3-1.2) mg/dL AST 14 (0-34) U/L ALT 11 (10-49) U/L Alkaline Phosphatase 134 H (46-116) U/L Albumin 3.5 (3.4-4.8) gm/dL Urine 07/03/24 Range/Units 20:35 Urine Color Lt-Yellow (Lt Yel-Yel) Urine Clarity Turbid A (Clear/Hazy) Urine pH 5.0 (5.0-7.0) Ur Specific [place] 1.011 (1.001-1.035) Urine Protein Negative (Neg - Trace) Urine Glucose (UA) Negative (Negative) Quality Measures Quality Measures none Advance care planning discussed with:: patient and child Medications Home Medications and Allergies Home Medications ?Medication ?Instructions ?Recorded ?Confirmed ?Type simvastatin 40 mg tablet 40 mg PO HS ##90 07/27/15 History pantoprazole 40 mg tablet,delayed 40 mg PO QDAY 07/03/24 History release furosemide 40 mg tablet (Lasix) 40 mg PO QAM 06/18/24 07/03/24 History losartan 50 mg tablet 100 mg PO 06/18/24 History insulin glargine 100 unit/mL 5 unit subcut QPM 5 07/03/24 History subcutaneous solution insulin lispro 100 unit/mL 1 sliding scale dose subcut 07/03/24 07/03/24 History subcutaneous solution (Humalog USEASDIRECTD U-100 Insulin) potassium chloride 10 mEq 10 meq PO QDAY 07/03/2406/19 History tablet,extended release Allergies Allergy/AdvReac Type Severity Reaction Status Date / Time heparin Allergy Verified 06/23/24 06:16 Visit Medications Acetaminophen (Acetaminophen 325 Mg Tablet) 650 mg PO Q6H PRN PRN Reason: Fever >100 or pain 1-3 Stop: 08/02/24 23:25 Atorvastatin Calcium (Atorvastatin Calcium 20 Mg Tablet) 20 mg PO [facility] Stop: 08/02/24 23:34 Dextrose (Dextrose 50%-Water Inj 50 Ml Syringe) 25 ml IV Q15MIN PRN PRN Reason: BG 50-70 responsive npo pt Stop: 08/02/24 23:32 Dextrose (Dextrose 50%-Water Inj 50 Ml Syringe) 50 ml IV Q15MIN PRN PRN Reason: BG <50 OR BG <70 & pt unresponsive Stop: 08/02/24 23:32 Doxycycline Hyclate (Doxycycline 100 Mg Tablet) 100 mg PO BID SRI Stop: 07/04/24 21:00 Gabapentin (Gabapentin 300 Mg Capsule) 300 mg PO [facility] Stop: 08/02/24 23:34 Glucagon (Glucagon Inj 1 Mg Vial) 1 mg IM Q15MIN PRN PRN Reason: BG <70, and no IV access Insulin Human Lispro (Insulin Lispro (Admelog) 1 Unit/0.01 Ml Unit) 0 unit SC AC [facility]; Protocol Stop: 08/03/24 07:29 Oxycodone/Acetaminophen (Oxycodone/Apap 5/325 Tablet) 1 tab PO Q6H PRN PRN Reason: pain 5-10, breakthrough Stop: 07/08/24 23:44 Sennosides (Senna Tablet) 1 tab PO QDAY [facility]; Protocol Stop: 08/03/24 08:59 Discontinued Medications Ceftriaxone Sodium 1,000 mg/ (Sodium Chloride) 50 mls @ 100 mls/hr IV X1 ONE Stop: 07/03/24 19:17 Last Infusion: 07/03/24 20:08 Dose: Infused Phenazopyridine HCl (Phenazopyridine Hcl 100 Mg Tablet) 100 mg PO X1 ONE Stop: 07/03/24 18:48 Last Admin: 07/03/24 19:38 Dose: 100 mg Assessment & Plan Plan Assessment Maria Luisa is a 83 y/o female with PMHx total hip replacement (performed by Dr. Wiggins on June 24) hypertension, hyperlipidemia, bilateral PE, DVT (on Eliquis), avascular necrosis of right hip, history of thyroid nodule s/p biopsy, MDR UTI who is admitted for symptomatic anemia and DVT. #Symptomatic anemia #? GI bleed Patient's hemoglobin about a month ago was 12, now it is 7.8 Patient denies dark stools or coughing up blood or vomiting blood Patient does endorse fatigue and generalized weakness Patient does have history of DVT and has active one currently, however we will need to continue with anticoagulation with risk versus benefit Plan: ? Follow-up FOBT ? Consider GI consult ? Confusion protocol hemoglobin below 7 ? Trend CBC ? Follow-up iron studies panel ? Protonix 40 mg IV every day ? Avoid NSAIDs #DVT #History of bilateral PE #History of DVT #Status post total hip replacement, 06/23/2024 Venous Doppler lower extremities and was found to have positive DVT with a mid right proximal superficial femoral vein, popliteal vein. Seems to be provoked DVT due to immobilization and post operative When patient had mechanical thrombectomy last year, however the procedure was not fully successful and had to have IVC there and DOAC Plan: ? Hold Eliquis #History of hypertension #History of hyperlipidemia Blood pressure was little low on admission Plan: ? Pending med rec ? Resumed Lipitor 20 mg at bedtime # Insulin-dependent type 2 diabetes mellitus Takes glargine and sliding scale at home Plan: ? Sliding scale insulin ? Hypoglycemic protocol in place ? Blood sugar checks with meals ? Resume with carb low consistent diet #Health Maintenance Disposition: Telemetry DVT prophylaxis: SCD GI prophylaxis: Protonix Diet: Pending swallow eval, to resume carb low consistent if passes CODE STATUS: Full Patient seen and care discussed with my attending physician, Dr. rEis Villeda, PGY-1
[2024-07-04] VITALS (48 sets, daily range): BP systolic 99–128; BP diastolic 47–90; PULSE 80–97; RESP 0–21; TEMP 36.1–37.2; O2SAT 90–99; BMI 28.0
[2024-07-04] MEDS: DOXYCYCLINE 100 MG TABLET PO ×3 (00:21→20:50)
[2024-07-04] MEDS: GABAPENTIN 300 MG CAPSULE PO ×2 (00:22→20:50)
[2024-07-04] MEDS: ATORVASTATIN CALCIUM 20 MG TABLET PO ×2 (00:22→20:50)
--- NOTE | 2024-07-04 01:10 | PC.NURSE ---
IN ROOM TO CHECK ON PT AT THIS TIME. PT DENIES ANY PAIN, STATES I FEEL FINE . CALL LIGHT IN REACH.
[2024-07-04 05:36] LABS: Basophils % (Auto) 0 % (0-2.5); Eosinophils # (Auto) 0.3 Thou/mm3 (0.0-0.5); Eosinophils % (Auto) 4 % (0-10); Hematocrit 23.2 % (36.0-46.0); Immature Granulocytes % (Auto) 3 % (0-0); Immature Granulocytes Auto 0.27 Thou/mm3 (0.00-0.00); Lymphocytes # (Auto) 1.1 Thou/mm3 (1.0-4.8); Lymphocytes % (Auto) 14 % (10-50); Mean Corpuscular HGB Conc 31.5 g/dl (31.0-37.0); Mean Corpuscular Hemoglobin 29.4 pg (25.0-35.0); Mean Corpuscular Volume 94 fL (80-100); Monocytes # (Auto) 0.6 Thou/mm3 (0.0-0.8); Monocytes % (Auto) 7 % (0-12); Neutrophils # (Auto) 6.1 Thou/mm3 (1.8-7.7); Neutrophils % (Auto) 72 % (37-80); Nucleated Red Blood Cell % 0 /100 WBC (0); Platelet Count 299 Thou/mm3 (140-440); RDW Standard Deviation 52.6 fL (36.4-46.3); Red Blood Count 2.48 Miln/mm3 (4.00-5.20); White Blood Count 8.4 Thou/mm3 (3.6-11.0)
[2024-07-04 05:37] LABS: Hemoglobin 7.3 g/dL (12.0-16.0)
[2024-07-04 05:51] LABS: INR 1.1 (0.9-1.3); Partial Thromboplastin Time 32.2 Seconds (22.0-36.0); Prothrombin Time 12.3 Seconds (9.0-12.2)
[2024-07-04 06:29] LABS: Alanine Aminotransferase < 7 U/L (10-49); Albumin, Serum 3.2 gm/dL (3.4-4.8); Albumin/Globulin Ratio 1.5 (1.2-2.2); Alkaline Phosphatase 124 U/L (46-116); Anion Gap 8 (7-16); Aspartate Amino Transferase < 8 U/L (0-34); BUN/Creatinine Ratio 31 Ratio (12-20); Bilirubin,Total 0.6 mg/dL (0.3-1.2); Blood Urea Nitrogen 25 mg/dL (9-23); Calcium 8.8 mg/dL (8.3-10.6); Calcium (Corrected) 9.4 mg/dL (8.5-10.1); Carbon Dioxide 25.8 mMol/L (20.0-31.0); Chloride 103 mMol/L (98-107); Creatinine (Component) 0.8 mg/dL (0.6-1.3); Estimated Creatinine Clearance 48.7 mL/min (>60); Globulin 2.1 gm/dL (2.3-3.5); Glucose 122 mg/dL (74-106); Magnesium 1.9 mg/dL (1.6-2.6); Osmolality,Calculated 279 (275-295); Phosphorous 4.1 mg/dL (2.4-5.1); Potassium 4.2 mMol/L (3.4-5.1); Sodium 137 mMol/L (136-145); Total Protein 5.3 gm/dL (5.7-8.2); eGFR > 60 See Note
[2024-07-04] MEDS: PANTOPRAZOLE INJ 40 MG VIAL IV (08:43)
[2024-07-04] MEDS: cefTRIAXone 1,000 MG in SODIUM CHLORIDE 0.9% (Popper) 50 ML 100 MG IV (08:44)
[2024-07-04] MEDS: Magnesium Sulfate 1 gm Ivpb 1 GM/100 ML BAG IV (08:44)
[2024-07-04] MEDS: SENNA TABLET 1 TAB PO (08:44)
--- NOTE | 2024-07-04 10:21 | CHAP ---
Patient was visited by the Spiritual Care Volunteer who prayed for them. (Volunteer was in the hospital from 09:02-10:21)
--- NOTE | 2024-07-04 11:26 | PD.RESPRO ---
Documentation for date of: 07/04/24 Subjective Subjective Interval history: Patient is an overnight admit. Patient seen and examined at bedside this morning patient is saturating 95% on 4 L oxygen via nasal cannula. Patient has recently gotten right hip replacement surgery on 06/24 and was sent to rehab however patient stated that in rehab she stopped doing physical therapy after the first 2 session when she initially got there because she was unable to bear it due to pain although she was given pain medication prior to starting the sessions. Patient has not had any physical therapy since Friday of last week. Patient states that she noticed that her right lower extremity started swelling and started becoming very painful the last few days which prompted her to come to the ED patient also complained of dizziness and blurry vision and generalized weakness for 3 to 4 days. Denies any melena or hematochezia.'s are stable however patient's hemoglobin this morning is 7.3 and hematocrit 23 will consult GI to investigate source of bleeding. Exam Vital Signs Temp Pulse Resp BP Pulse Ox O2 Del Method O2 Flow Rate 98.1 F 97 19 118/63 93 L Nasal Cannula 3 07/04/24 06:00 07/04/24 06:00 07/04/24 06:00 07/04/24 06:00 07/04/24 06:00 07/04/24 06:00 07/04/24 06:00 Narrative Exam GENERAL: A&Ox3 . Awake, Not in acute distress NEURO: no focal neurological deficits HEENT: Atraumatic, Normocephalic. mucous membranes moist. Eyes open, symmetrical, & clear HEART: Normal Heart Sounds LUNGS: Clear to auscultation with no wheezing or crackles. ABDOMEN: soft, non-distended, non-tender, bowel sounds heard, no guarding or rebound tenderness SKIN: No Rash or ecchymoses, right hip surgical site looks clean EXTREMITIES: 1+ pitting edema bilaterally in LE, tenderness, able to move all 4 extremities, pedal pulses palpated Objective Labs 07/05/24 04:18 07/05/24 04:18 Labs: Laboratory Results - last 24 hr 07/03/24 07/03/24 07/04/24 18:40 20:35 05:11 WBC 10.2 8.4 RBC 2.67 L 2.48 L Hgb 7.8 L 7.3 L Hct 25.0 L 23.2 L MCV 94 94 MCH 29.2 29.4 MCHC 31.2 31.5 RDW Std Deviation 52.5 H 52.6 H Plt Count 306 D 299 Neut % (Auto) 73 72 Lymph % (Auto) 12 14 [place] % (Auto) 6 7 Eos % (Auto) 3 4 Baso % (Auto) 0 0 Neut # (Auto) 7.4 6.1 Lymph # (Auto) 1.3 1.1 [place]ink[place] # (Auto) 0.7 0.6 Eos # (Auto) 0.3 0.3 Baso # (Auto) 0.0 0.0 Immature Gran # (Auto) 0.47 H 0.27 H Absolute Nucleated RBC 0.02 H 0.00 Immature Gran % 5 H 3 H Nucleated RBC % 0 0 Retic Count (auto) 8.6 H Absolute Retic 230.7 H Immature Retic Fraction 36.5 H Retic Hgb Content CHr 28.3 PT 12.2 12.3 H INR 1.1 1.1 APTT 34.5 32.2 Sodium 138 137 Potassium 4.0 4.2 Chloride 104 103 Carbon Dioxide 24.1 25.8 Anion Gap 10 8 BUN 25 H 25 H Creatinine 0.8 0.8 Estim Creat Clear Calc 47.0 L 48.7 L eGFR > 60 > 60 BUN/Creatinine Ratio 31 H 31 H Glucose 122 H 122 H Calculated Osmolality 281 279 Lactic Acid 1.2 Calcium 9.4 8.8 Corrected Calcium 9.8 9.4 Phosphorus 4.1 Magnesium 1.9 1.9 Iron 32 L TIBC 309 Iron Saturation 10 L Unsat Iron Binding 277 Ferritin 138 Total Bilirubin 0.7 0.6 AST 14 < 8 ALT 11 < 7 L Alkaline Phosphatase 134 H 124 H Troponin I < 0.020 Total Protein 6.0 5.3 L Albumin 3.5 3.2 L Globulin 2.5 2.1 L Albumin/Globulin Ratio 1.4 1.5 Procalcitonin 0.31 Ur Collection Type Catheter Urine Color Lt-Yellow Urine Clarity Turbid A Urine pH 5.0 Ur Specific [place] 1.011 Urine Protein Negative Urine Glucose (UA) Negative Urine Ketones Negative Urine Blood Negative Urine Nitrite Negative Urine Bilirubin Negative Urine Urobilinogen (Auto) Negative Ur Leukocyte Esterase Negative Urine RBC 0 Urine WBC 0 Ur Squamous Epith Cells 6 H Urine Bacteria Rare Hyaline Casts < 1 Ur Culture Indicated? Not Indicated Blood Bank Wristband ID 07/04/24 08:46 WBC RBC Hgb Hct MCV MCH MCHC RDW Std Deviation Plt Count Neut % (Auto) Lymph % (Auto) [place] % (Auto) Eos % (Auto) Baso % (Auto) Neut # (Auto) Lymph # (Auto) [place]ink[place] # (Auto) Eos # (Auto) Baso # (Auto) Immature Gran # (Auto) Absolute Nucleated RBC Immature Gran % Nucleated RBC % Retic Count (auto) Absolute Retic Immature Retic Fraction Retic Hgb Content CHr PT INR APTT Sodium Potassium Chloride Carbon Dioxide Anion Gap BUN Creatinine Estim Creat Clear Calc eGFR BUN/Creatinine Ratio Glucose Calculated Osmolality Lactic Acid Calcium Corrected Calcium Phosphorus Magnesium Iron TIBC Iron Saturation Unsat Iron Binding Ferritin Total Bilirubin AST ALT Alkaline Phosphatase Troponin I Total Protein Albumin Globulin Albumin/Globulin Ratio Procalcitonin Ur Collection Type Urine Color Urine Clarity Urine pH Ur Specific [place] Urine Protein Urine Glucose (UA) Urine Ketones Urine Blood Urine Nitrite Urine Bilirubin Urine Urobilinogen (Auto) Ur Leukocyte Esterase Urine RBC Urine WBC Ur Squamous Epith Cells Urine Bacteria Hyaline Casts Ur Culture Indicated? Blood Bank Wristband ID Yes Quality Measures Quality Measures none Advance care planning discussed with:: patient Assessment & Plan Assessment Current Active Medications: Generic Name Dose Route Start Last Admin Trade Name Freq PRN Reason Stop Dose Admin Acetaminophen 650 mg 07/03/24 23:26 Acetaminophen 325 Mg Tablet PO 08/02/24 23:25 Q6H PRN Fever >100 or pain 1-3 Atorvastatin Calcium 20 mg 07/03/24 23:35 07/04/24 00:22 Atorvastatin Calcium 20 Mg Tablet PO 08/02/24 23:34 20 mg HS SRI Administration Dextrose 25 ml 07/03/24 23:33 Dextrose 50%-Water Inj 50 Ml Syringe IV 08/02/24 23:32 Q15MIN PRN BG 50-70 responsive npo pt Dextrose 50 ml 07/03/24 23:33 Dextrose 50%-Water Inj 50 Ml Syringe IV 08/02/24 23:32 Q15MIN PRN BG <50 OR BG <70 & pt unresponsive Doxycycline Hyclate 100 mg 07/03/24 23:30 07/04/24 08:44 Doxycycline 100 Mg Tablet PO 07/04/24 21:00 100 mg BID SRI Administration Gabapentin 300 mg 07/03/24 23:35 07/04/24 00:22 Gabapentin 300 Mg Capsule PO 08/02/24 23:34 300 mg HS SRI Administration Glucagon 1 mg 07/03/24 23:33 Glucagon Inj 1 Mg Vial IM Q15MIN PRN BG <70, and no IV access Ceftriaxone Sodium 1,000 mg/ 50 mls @ 100 mls/hr 07/04/24 08:37 07/04/24 08:44 Sodium Chloride IV 07/11/24 08:36 100 mls/hr QDAY SRI Administration Insulin Human Lispro 0 unit 07/04/24 07:30 07/04/24 08:33 Insulin Lispro (Admelog) 1 Unit/0.01 Ml Unit SC 08/03/24 07:29 Not Given AC SRI Protocol Oxycodone/Acetaminophen 1 tab 07/03/24 23:34 Oxycodone/Apap 5/325 Tablet PO 07/08/24 23:44 Q6H PRN pain 5-10, breakthrough Pantoprazole Sodium 40 mg 07/04/24 09:00 07/04/24 08:43 Pantoprazole Inj 40 Mg Vial IV 08/03/24 08:59 40 mg QDAY SRI Administration Polyethylene Glycol 17 gm 07/04/24 10:45 Polyethylene Glycol 17 Gm Packet PO 08/03/24 10:44 QDAY SRI Sennosides 1 tab 07/04/24 09:00 07/04/24 08:44 Senna Tablet PO 08/03/24 08:59 1 tab QDAY SRI Administration Protocol Plan Ms. Norris is a 83 y/o female with PMHx total hip replacement (performed by Dr. Wiggins on June 24) hypertension, hyperlipidemia, bilateral PE, DVT (on Eliquis), avascular necrosis of right hip, history of thyroid nodule s/p biopsy, MDR UTI who is admitted for symptomatic anemia and DVT. #Symptomatic iron deficiency anemia #Acute blood loss anemia, upper or lower GI -Patient's hemoglobin about a month ago was 12, on admission Hgb 7.8, Hct 23.9 -Patient denies dark stools or coughing up blood or vomiting blood -Patient does endorse fatigue, generalized weakness and diziness -Patient has history of DVT and PE for which she was taking eliquis daily -iron panel Iron 32, TIBC 309, Iron saturation 10, unsat iron binding 277 Plan: -transfusion protocol hemoglobin below 7 -Trend CBC -Protonix 40 mg IV every day -Avoid NSAIDs -Consult GI, appreciate recommendations #DVT #History of bilateral PE #History of DVT #Status post total hip replacement, 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 -Seems to be provoked DVT due to immobilization and post operative -When patient had mechanical thrombectomy last year, however the procedure was not fully successful and had to have IVC there and DOAC Plan: -Hold home Eliquis #History of hypertension #History of hyperlipidemia Blood pressure was little low on admission Plan: -Pending med rec -Resumed Lipitor 20 mg at bedtime # Insulin-dependent type 2 diabetes mellitus Takes glargine and sliding scale at home Plan: -Sliding scale insulin -Hypoglycemic protocol in place -Blood sugar checks with meals -Resume with carb low consistent diet #Health Maintenance Disposition: Telemetry DVT prophylaxis: SCD GI prophylaxis: Protonix Diet: NPO CODE STATUS: Full Assessment and plan discussed with my attending physician Dr. Deonte Kirby (PGY-1)- Internal medicine resident Attending Provider Attestation/Addendum Patient seen and examined at bedside with resident. Agree with assessment and plan as dictated above and have reviewed all labs and imaging and orders. Patient with no signs of acute bleed at this time. Per chart review, has an IVC filter in place and has developed a new DVT, unclear etiology. Because of acute symptomatic anemia, will hold DOACs at this time. Pending GI eval for investigation of acute anemia, may also be worthwhile to reach out to ortho regarding recent hip replacement as possible source of anemia. Continue to monitor closely for now. Constantin Clemons MD
[2024-07-04] MEDS: POLYETHYLENE GLYCOL 17 GM PACKET PO (12:04)
--- NOTE | 2024-07-04 13:00 | PD.IMCONS ---
HPI Data of Consult Requesting Physician: Tomasz Schulte MD Primary Care Provider: Mari Crowder PA-C Consult Narrative Reason for consult: H&H 7.8/.06 History of present illness: 83 years old female I been asked to evaluate for a hemoglobin of 7.8 hematocrit 25.0 Patient has been on Eliquis for recently ORIF of the right hip on 06/23/2024 and patient also has a history of bilateral lower extremity deep vein thrombosis as of 06/11/2023 and as of 06/25/2023 patient has bilateral pulmonary embolism Patient also has bilateral pleural effusion and pericardial effusion cc:: cc: Tomasz Schulte MD Review of Systems Review of Systems Systems Reviewed: All systems reviewed, normal except as documented Past Medical History Surgical History OTHER SURGICAL HX: As in the history of present illness Meds Home Medications and Allergies Home Medications ?Medication ?Instructions ?Recorded ?Confirmed ?Type simvastatin 40 mg tablet 40 mg PO HS ##90 07/27/15 07/03/24 History pantoprazole 40 mg tablet,delayed 40 mg PO QDAY 06/12/23 07/03/24 History release furosemide 40 mg tablet (Lasix) 40 mg PO QAM 06/18/24 07/03/24 History losartan 50 mg tablet 100 mg PO HS 06/18/24 07/03/24 History insulin glargine 100 unit/mL 5 unit subcut QPM 07/03/24 07/03/24 History subcutaneous solution insulin lispro 100 unit/mL 1 sliding scale dose subcut 07/03/24 07/03/24 History subcutaneous solution (Humalog USEASDIRECTD U-100 Insulin) potassium chloride 10 mEq 10 meq PO QDAY 07/03/24 07/03/24 History tablet,extended release Allergies Allergy/AdvReac Type Severity Reaction Status Date / Time heparin Allergy Verified 06/23/24 06:16 Exam Vital Signs Temp Pulse Resp BP Pulse Ox O2 Del Method O2 Flow Rate 98.1 F 97 19 118/63 93 L Nasal Cannula 3 07/04/24 06:00 07/04/24 06:00 07/04/24 06:00 07/04/24 06:00 07/04/24 06:00 07/04/24 06:00 07/04/24 06:00 Constitutional Comments: Chronically ill-appearing Routine Respiratory Exam Comments: Normal to auscultation Routine Abdominal Exam Comments: Soft nontender Results Labs 07/04/24 13:49 07/04/24 05:11 Labs: Short CBC 07/03/24 07/04/24 Range/Units 18:40 05:11 WBC 10.2 8.4 (3.6-11.0) Thou/mm3 Hgb 7.8 L 7.3 L (12.0-16.0) g/dL Hct 25.0 L 23.2 L (36.0-46.0) % Plt Count 306 D 299 (140-440) Thou/mm3 BMP 07/03/24 07/04/24 18:40 05:11 Sodium 138 137 Potassium 4.0 4.2 Chloride 104 103 Carbon Dioxide 24.1 25.8 BUN 25 H 25 H Creatinine 0.8 0.8 Glucose 122 H 122 H Calcium 9.4 8.8 Cardiac Enzymes 07/03/24 Range/Units 18:40 Troponin I < 0.020 (0.0-0.045) ng/mL Liver Function 07/03/24 07/04/24 Range/Units 18:40 05:11 Total Bilirubin 0.7 0.6 (0.3-1.2) mg/dL AST 14 < 8 (0-34) U/L ALT 11 < 7 L (10-49) U/L Alkaline Phosphatase 134 H 124 H (46-116) U/L Albumin 3.5 3.2 L (3.4-4.8) gm/dL Urine 07/03/24 Range/Units 20:35 Urine Color Lt-Yellow (Lt Yel-Yel) Urine Clarity Turbid A (Clear/Hazy) Urine pH 5.0 (5.0-7.0) Ur Specific [place] 1.011 (1.001-1.035) Urine Protein Negative (Neg - Trace) Urine Glucose (UA) Negative (Negative) Assessment and Plan Additional Assessment & Plan Additional Plan: # Acute posthemorrhagic anemia Initial test of choice fiberoptic upper endoscopy with possible biopsy possible therapeutic intervention under intravenous moderate sedation scheduled for today In case EGD is negative we will schedule the patient for a fiberoptic colonoscopy Eliquis is important for the patient I will suggest we do not discontinue that and keep the patient on Eliquis as she has a history of bilateral lower extremity deep vein fibrosis as well as bilateral pulmonary embolism She might have antiphospholipid syndrome Other medical problems include # Recent right hip ORIF # Bilateral pulmonary embolism # Bilateral deep vein thrombosis # Essential hypertension # Hyperlipidemia Thank you very much for the opportunity to participate in the care of this patient
[2024-07-04 14:04] LABS: Hematocrit 23.9 % (36.0-46.0)
[2024-07-04 14:16] LABS: Hemoglobin 7.5 g/dL (12.0-16.0)
--- NOTE | 2024-07-04 16:52 | SUR.PHASEI ---
1652: Pt. AAOx4, vitals stable, breathing unlabored, no complaint of pain or nausea, no dressing in place, no active bleed noted, report received from Larisa PALACIOS.
--- NOTE | 2024-07-04 17:16 | SUR.PHASEI ---
1716: Pt. AAOx4, vitals stable, breathing unlabored, no complaint of pain or nausea, no dressing in place, no active bleed noted, gave report to Dalton PALACIOS prior to transfer to room.
--- NOTE | 2024-07-04 17:21 | SUR.PHASEI ---
attempt to call family to notify them transfer to room 363, no answer.
--- NOTE | 2024-07-04 19:43 | PC.LAC ---
at 1800, spoke to Dr. Pires about patients family at bedside stating that pt had colonoscopy last month and resulted in mild Diverticulitis and hemorrhoids, per Dr. Pires colonoscopy scheduled for tm cancelled, patient can have regular diet, at 1610, Dr. Jameson notified of cancelled colonoscopy and patient does not have scheduled H&H, per Dr. Jameson H&H ordered
[2024-07-04 20:28] LABS: Hematocrit 22.3 % (36.0-46.0); Hemoglobin 6.9 g/dL (12.0-16.0)
--- NOTE | 2024-07-04 20:41 | PC.NURSE ---
seen and examined by Dr. Villeda.
--- NOTE | 2024-07-04 23:34 | PC.NURSE ---
99% O2 sat on 4L/min via oxymask- decreased O2 inh to 2L/min via Oxymask.
[2024-07-05] VITALS (9 sets, daily range): BP systolic 99–123; BP diastolic 52–74; PULSE 77–94; RESP 16–20; TEMP 36.1–36.7; O2SAT 94–100
[2024-07-05 06:00] LABS: Basophils % (Auto) 0 % (0-2.5); Eosinophils # (Auto) 0.4 Thou/mm3 (0.0-0.5); Eosinophils % (Auto) 4 % (0-10); Hematocrit 27.4 % (36.0-46.0); Immature Granulocytes % (Auto) 2 % (0-0); Immature Granulocytes Auto 0.21 Thou/mm3 (0.00-0.00); Lymphocytes # (Auto) 1.1 Thou/mm3 (1.0-4.8); Lymphocytes % (Auto) 12 % (10-50); Mean Corpuscular HGB Conc 32.8 g/dl (31.0-37.0); Mean Corpuscular Hemoglobin 30.3 pg (25.0-35.0); Mean Corpuscular Volume 92 fL (80-100); Monocytes # (Auto) 0.7 Thou/mm3 (0.0-0.8); Monocytes % (Auto) 7 % (0-12); Neutrophils # (Auto) 7.1 Thou/mm3 (1.8-7.7); Neutrophils % (Auto) 75 % (37-80); Nucleated Red Blood Cell % 0 /100 WBC (0); Platelet Count 317 Thou/mm3 (140-440); RDW Standard Deviation 51.2 fL (36.4-46.3); Red Blood Count 2.97 Miln/mm3 (4.00-5.20); White Blood Count 9.5 Thou/mm3 (3.6-11.0)
[2024-07-05 06:10] LABS: Path Review Blood Smear Sent to Pathologist
[2024-07-05 06:44] LABS: Alanine Aminotransferase < 7 U/L (10-49); Albumin, Serum 3.1 gm/dL (3.4-4.8); Albumin/Globulin Ratio 1.5 (1.2-2.2); Alkaline Phosphatase 126 U/L (46-116); Anion Gap 8 (7-16); Aspartate Amino Transferase < 10 U/L (0-34); BUN/Creatinine Ratio 31 Ratio (12-20); Bilirubin,Total 1.1 mg/dL (0.3-1.2); Blood Urea Nitrogen 22 mg/dL (9-23); Calcium 8.6 mg/dL (8.3-10.6); Calcium (Corrected) 9.3 mg/dL (8.5-10.1); Carbon Dioxide 27.4 mMol/L (20.0-31.0); Chloride 103 mMol/L (98-107); Creatinine (Component) 0.7 mg/dL (0.6-1.3); Estimated Creatinine Clearance 55.6 mL/min (>60); Globulin 2.1 gm/dL (2.3-3.5); Glucose 106 mg/dL (74-106); Magnesium 2.1 mg/dL (1.6-2.6); Osmolality,Calculated 278 (275-295); Phosphorous 3.5 mg/dL (2.4-5.1); Sodium 138 mMol/L (136-145); Total Protein 5.2 gm/dL (5.7-8.2); eGFR > 60 See Note
[2024-07-05] MEDS: POLYETHYLENE GLYCOL 17 GM PACKET PO (08:32)
[2024-07-05] MEDS: cefTRIAXone 1,000 MG in SODIUM CHLORIDE 0.9% (Popper) 50 ML 100 MG IV (08:32)
[2024-07-05] MEDS: SENNA TABLET 1 TAB PO (08:32)
[2024-07-05] MEDS: PANTOPRAZOLE INJ 40 MG VIAL IV (08:32)
[2024-07-05] MEDS: INSULIN LISPRO (AdmeLOG) 1 UNIT/0.01 ML UNIT SC ×2 (11:41→17:06)
--- NOTE | 2024-07-05 14:10 | PC.SS ---
Patient Maria Luisa Norris is a 83 year old female.SS met with patient at bedside, she appeared alert and oriented to place siltation and time. Patient reports living at home with grandson, Ravinder. Patient confirmed demographic information. Patient assigned her son, Dmitry Norris as surrogate decision maker [phone]. Patient reports requiring some assistance with ADL's. Patient reports utilizing a Walker and wheelchair to assist with ambulation. Patient denies having home O2. Patient's PCP is Mari Crowder. Patient would like to return home upon discharge, family to provide transportation. No needs identified at this time. D/c plan: home Next of kin: Son, Dmitry Norris
--- NOTE | 2024-07-05 17:07 | ESPR_ITS ---
<Statement entered by Tomas Anthony MD - 07/05/24 19:12> Patient was seen and examined by me personally. I agree with most of the assessment and plan as discussed with the internal combustion engineer physician, and my attending, Dr. Sam. 1 unit PRBC transfused with improvement of Hgb to 9. EGD was negative for active bleed therefore colonoscopy will need to be done. At bedside, patient is endorsing dysuria however UA on admission was negative. Patient was already started on Rocephin, therefore UA/urine culture may not result. Vitals, labs reviewed stable. Tomas Anthony MD, PGY-3 Documentation for date of: 07/05/24 Subjective Subjective Interval history: Overnight team reported patient's hemoglobin dropped to 6.9 and 1 unit of pRBC is transfused. Repeat hemoglobin posttransfusion is 9.0. Patient is seen and examined at bedside this morning vital signs are stable patient is currently saturating above 95% on 2 L of oxygen. Patient denies any pain or shortness of breath or dizziness. Patient underwent EGD which showed erythematous mucosa without any signs of any active bleeding. Patient will undergo GoLytely prep for colonoscopy to investigate source of bleeding. Blood cultures showed no growth. Will cotninue to hold resuming Eliquis for DVT due to acute bleeding. Remaining of the labs are stable, patient has no other complaints. Exam Vital Signs Temp Pulse Resp BP Pulse Ox O2 Del Method O2 Flow Rate 97.4 F 93 18 99/74 100 Room Air 2 07/05/24 16:00 07/05/24 16:00 07/05/24 16:00 07/05/24 16:00 07/05/24 12:00 07/05/24 16:07/05/24 08:00 Narrative Exam GENERAL: A&Ox3 . Awake, Not in acute distress NEURO: no focal neurological deficits HEENT: Atraumatic, Normocephalic. mucous membranes moist. Eyes open, symmetrical, & clear HEART: Normal Heart Sounds LUNGS: Clear to auscultation with no wheezing or crackles. ABDOMEN: soft, non-distended, non-tender, bowel sounds heard, no guarding or rebound tenderness SKIN: No Rash or ecchymoses, right hip surgical site looks clean and dry EXTREMITIES: 1+ pitting edema bilaterally in LE, tenderness, able to move all 4 extremities, pedal pulses palpated Objective Labs 07/05/24 04:18 07/05/24 04:18 Labs: Laboratory Results - last 24 hr 07/04/24 07/04/24 07/05/24 08:46 19:54 04:18 WBC 9.5 RBC 2.97 L Hgb 6.9 L* 9.0 L D Hct 22.3 L 27.4 L MCV 92 MCH 30.3 MCHC 32.8 RDW Std Deviation 51.2 H Plt Count 317 Neut % (Auto) 75 Lymph % (Auto) 12 [place] % (Auto) 7 Eos % (Auto) 4 Baso % (Auto) 0 Neut # (Auto) 7.1 Lymph # (Auto) 1.1 [place] # (Auto) 0.7 Eos # (Auto) 0.4 Baso # (Auto) 0.0 Immature Gran # (Auto) 0.21 H Absolute Nucleated RBC 0.00 Immature Gran % 2 H Nucleated RBC % 0 Smear Path Review Sent to Pathologist Sodium 138 Potassium 4.0 Chloride 103 Carbon Dioxide 27.4 Anion Gap 8 BUN 22 Creatinine 0.7 Estim Creat Clear Calc 55.6 L eGFR > 60 BUN/Creatinine Ratio 31 H Glucose 106 Calculated Osmolality 278 Calcium 8.6 Corrected Calcium 9.3 Phosphorus 3.5 Magnesium 2.1 Total Bilirubin 1.1 D AST < 10 ALT < 7 L Alkaline Phosphatase 126 H Total Protein 5.2 L Albumin 3.1 L Globulin 2.1 L Albumin/Globulin Ratio 1.5 Blood Type A Positive Antibody Screen NEGATIVE Crossmatch See Detail Blood Bank Wristband ID Yes Quality Measures Quality Measures none Advance care planning discussed with:: patient Assessment & Plan Assessment Current Active Medications: Generic Name Dose Route Start Last Admin Trade Name Freq PRN Reason Stop Dose Admin Acetaminophen 650 mg 07/03/24 23:26 Acetaminophen 325 Mg Tablet PO 08/02/24 23:25 Q6H PRN Fever >100 or pain 1-3 Atorvastatin Calcium 20 mg 07/03/24 23:35 07/04/24 20:50 Atorvastatin Calcium 20 Mg Tablet PO 08/02/24 23:34 20 mg HS SRI Administration Dextrose 25 ml 07/03/24 23:33 Dextrose 50%-Water Inj 50 Ml Syringe IV 08/02/24 23:32 Q15MIN PRN BG 50-70 responsive npo pt Dextrose 50 ml 07/03/24 23:33 Dextrose 50%-Water Inj 50 Ml Syringe IV 08/02/24 23:32 Q15MIN PRN BG <50 OR BG <70 & pt unresponsive Gabapentin 300 mg 07/03/24 23:35 07/04/24 20:50 Gabapentin 300 Mg Capsule PO 08/02/24 23:34 300 mg HS SRI Administration Glucagon 1 mg 07/03/24 23:33 Glucagon Inj 1 Mg Vial IM Q15MIN PRN BG <70, and no IV access Ceftriaxone Sodium 1,000 mg/ 50 mls @ 100 mls/hr 07/04/24 08:37 07/05/24 08:32 Sodium Chloride IV 07/11/24 08:36 100 mls/hr QDAY SRI Administration Insulin Human Lispro 0 unit 07/04/24 07:30 07/05/24 11:41 Insulin Lispro (Admelog) 1 Unit/0.01 Ml Unit SC 08/03/24 07:29 1 unit AC SRI Administration Protocol Oxycodone/Acetaminophen 1 tab 07/03/24 23:34 Oxycodone/Apap 5/325 Tablet PO 07/08/24 23:44 Q6H PRN pain 5-10, breakthrough Pantoprazole Sodium 40 mg 07/04/24 09:00 07/05/24 08:32 Pantoprazole Inj 40 Mg Vial IV 08/03/24 08:59 40 mg QDAY SRI Administration Polyethylene Glycol 17 gm 07/04/24 10:45 07/05/24 08:32 Polyethylene Glycol 17 Gm Packet PO 08/03/24 10:44 17 gm QDAY SRI Administration Sennosides 1 tab 07/04/24 09:00 07/05/24 08:32 Senna Tablet PO 08/03/24 08:59 1 tab QDAY SRI Administration Protocol Plan Ms. Norris is a 83 y/o female with PMHx total hip replacement (performed by Dr. Wiggins on June 24) hypertension, hyperlipidemia, bilateral PE, DVT (on Eliquis), avascular necrosis of right hip, history of thyroid nodule s/p biopsy, MDR UTI who is admitted for symptomatic anemia and DVT. #Symptomatic iron deficiency anemia #Acute blood loss anemia, upper or lower GI -Patient's hemoglobin about a month ago was 12, on admission Hgb 7.8, Hct 23.9 -Patient denies dark stools or coughing up blood or vomiting blood -Patient does endorse fatigue, generalized weakness and diziness -Patient has history of DVT and PE for which she was taking eliquis daily -iron panel Iron 32, TIBC 309, Iron saturation 10, unsat iron binding 277 Plan: -transfusion protocol hemoglobin below 7 -Trend CBC -Protonix 40 mg IV every day -Avoid NSAIDs -Consult GI, appreciate recommendations -Patient underwent EGD which showed erythematous mucosa without any signs of any active bleeding. 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 -Seems to be provoked DVT due to immobilization and post operative -When patient had mechanical thrombectomy last year, however the procedure was not fully successful and had to have IVC there and DOAC Plan: -Hold home Eliquis due to acute bleeding #History of hypertension #History of hyperlipidemia -Blood pressure is soft on admission -Lipid panel cholesterol 209, HDL 63, LDL 86, triglycerides 118 Plan: -will continue to monitor BP and will add antihypertensive as needed -started atorvastatin 40mg HS # Insulin-dependent type 2 diabetes mellitus Takes glargine and sliding scale at home Plan: -Sliding scale insulin -Hypoglycemic protocol in place -Blood sugar checks with meals -Resume with carb low consistent diet #Health Maintenance Disposition: Telemetry DVT prophylaxis: SCD GI prophylaxis: Protonix Diet: NPO CODE STATUS: Full Assessment and plan discussed with my senior resident Dr. Anthony & attending physician Dr. Cecy Kirby (PGY-1)- Internal medicine resident Attending Provider Attestation/Addendum I have discussed and was present for the essential components of the history, physical examination, diagnosis, and treatment plan with the resident. I agree with the patient's care as documented by the resident and amended herein by me. Saran Sam DO. Patient seen and evaluated this AM. Vital signs stable, patient afebrile overnight, hemoglobin stable at 9. EGD largely unremarkable, colonoscopy pending, appreciate all GI recommendations. Will continue holding anticoagulation at this time pending specialist recommendations on restarting Eliquis. Will also continue ceftriaxone and doxycycline for pneumonia, patient tolerating well. Although this document has been carefully reviewed, there may still be some phonetic and other typographical errors. These errors are purely grammatical due to imperfections in the software program and should not be construed in any way to compromise the substance of the patient's medical care during this visit.
--- NOTE | 2024-07-05 18:15 | PC.NURSE ---
RAMILA Davidson would like to be called everytime patient has something done. No power of pole classifier noted. Received papers from Judy that is in patients chart. --JA
[2024-07-05] MEDS: GABAPENTIN 300 MG CAPSULE PO (20:46)
[2024-07-05] MEDS: ATORVASTATIN CALCIUM 20 MG TABLET 40 MG PO (20:46)
--- NOTE | 2024-07-05 22:31 | PD.IMPROG ---
Documentation for date of: 07/05/24 Subjective Subjective Interval history: Hemoglobin hematocrit 9.0 and 27.4 after blood transfusion Upper endoscopy showed gastritis According to family patient had a colonoscopy in [place] which was normal in the last 3 months No need for a repeat colonoscopy If patient continues to drop hemoglobin hematocrit Consider capsule endoscopy Exam Vital Signs Temp Pulse Resp BP Pulse Ox O2 Del Method O2 Flow Rate 98.1 F 88 18 119/58 L 96 Room Air 2 07/05/24 20:00 07/05/24 20:00 07/05/24 20:00 07/05/24 20:00 07/05/24 20:00 07/05/24 20:00 07/05/24 08:00 Objective Labs 07/05/24 04:18 07/05/24 04:18 Labs: Laboratory Results - last 24 hr 07/04/24 07/05/24 08:46 04:18 WBC 9.5 RBC 2.97 L Hgb 9.0 L D Hct 27.4 L MCV 92 MCH 30.3 MCHC 32.8 RDW Std Deviation 51.2 H Plt Count 317 Neut % (Auto) 75 Lymph % (Auto) 12 [place] % (Auto) 7 Eos % (Auto) 4 Baso % (Auto) 0 Neut # (Auto) 7.1 Lymph # (Auto) 1.1 [place] # (Auto) 0.7 Eos # (Auto) 0.4 Baso # (Auto) 0.0 Immature Gran # (Auto) 0.21 H Absolute Nucleated RBC 0.00 Immature Gran % 2 H Nucleated RBC % 0 Smear Path Review Sent to Pathologist Sodium 138 Potassium 4.0 Chloride 103 Carbon Dioxide 27.4 Anion Gap 8 BUN 22 Creatinine 0.7 Estim Creat Clear Calc 55.6 L eGFR > 60 BUN/Creatinine Ratio 31 H Glucose 106 Calculated Osmolality 278 Calcium 8.6 Corrected Calcium 9.3 Phosphorus 3.5 Magnesium 2.1 Total Bilirubin 1.1 D AST < 10 ALT < 7 L Alkaline Phosphatase 126 H Total Protein 5.2 L Albumin 3.1 L Globulin 2.1 L Albumin/Globulin Ratio 1.5 Blood Type A Positive Antibody Screen NEGATIVE Crossmatch See Detail Blood Bank Wristband ID Yes Impressions Impression: Gastritis Anemia blood loss Continue to monitor CBC Assessment & Plan A&P Narrative # Acute posthemorrhagic anemia Initial test of choice fiberoptic upper endoscopy with possible biopsy possible therapeutic intervention under intravenous moderate sedation scheduled for today In case EGD is negative we will schedule the patient for a fiberoptic colonoscopy Eliquis is important for the patient I will suggest we do not discontinue that and keep the patient on Eliquis as she has a history of bilateral lower extremity deep vein fibrosis as well as bilateral pulmonary embolism She might have antiphospholipid syndrome Other medical problems include # Recent right hip ORIF # Bilateral pulmonary embolism # Bilateral deep vein thrombosis # Essential hypertension # Hyperlipidemia Thank you very much for the opportunity to participate in the care of this patient Time Spent With Patient Time: Total time spent is greater than 50% in coordination of care (as documented) at patient's floor/unit and/or counseling patient:
[2024-07-06] VITALS (7 sets, daily range): BP systolic 113–129; BP diastolic 54–66; PULSE 80–95; RESP 15–25; TEMP 36.1–37; O2SAT 96–99; BMI 28.2
[2024-07-06 06:14] LABS: Basophils % (Auto) 0 % (0-2.5); Eosinophils # (Auto) 0.4 Thou/mm3 (0.0-0.5); Eosinophils % (Auto) 4 % (0-10); Hematocrit 25.3 % (36.0-46.0); Immature Granulocytes % (Auto) 3 % (0-0); Immature Granulocytes Auto 0.29 Thou/mm3 (0.00-0.00); Lymphocytes # (Auto) 1.3 Thou/mm3 (1.0-4.8); Lymphocytes % (Auto) 14 % (10-50); Mean Corpuscular HGB Conc 32.8 g/dl (31.0-37.0); Mean Corpuscular Hemoglobin 29.7 pg (25.0-35.0); Mean Corpuscular Volume 91 fL (80-100); Monocytes # (Auto) 0.8 Thou/mm3 (0.0-0.8); Monocytes % (Auto) 8 % (0-12); Neutrophils # (Auto) 6.5 Thou/mm3 (1.8-7.7); Neutrophils % (Auto) 70 % (37-80); Nucleated Red Blood Cell % 0 /100 WBC (0); Platelet Count 286 Thou/mm3 (140-440); RDW Standard Deviation 50.6 fL (36.4-46.3); Red Blood Count 2.79 Miln/mm3 (4.00-5.20); White Blood Count 9.3 Thou/mm3 (3.6-11.0)
[2024-07-06 06:20] LABS: Hemoglobin 8.3 g/dL (12.0-16.0)
[2024-07-06 06:57] LABS: Alanine Aminotransferase < 7 U/L (10-49); Albumin/Globulin Ratio 1.6 (1.2-2.2); Alkaline Phosphatase 121 U/L (46-116); Anion Gap 7 (7-16); Aspartate Amino Transferase 11 U/L (0-34); BUN/Creatinine Ratio 25 Ratio (12-20); Bilirubin,Total 0.8 mg/dL (0.3-1.2); Blood Urea Nitrogen 15 mg/dL (9-23); Calcium 8.6 mg/dL (8.3-10.6); Calcium (Corrected) 9.4 mg/dL (8.5-10.1); Carbon Dioxide 26.7 mMol/L (20.0-31.0); Chloride 105 mMol/L (98-107); Creatinine (Component) 0.6 mg/dL (0.6-1.3); Estimated Creatinine Clearance 65.1 mL/min (>60); Globulin 1.9 gm/dL (2.3-3.5); Glucose 114 mg/dL (74-106); Magnesium 1.9 mg/dL (1.6-2.6); Osmolality,Calculated 279 (275-295); Phosphorous 3.3 mg/dL (2.4-5.1); Sodium 139 mMol/L (136-145); Total Protein 4.9 gm/dL (5.7-8.2); eGFR > 60 See Note
[2024-07-06] MEDS: POLYETHYLENE GLYCOL 17 GM PACKET PO (08:08)
[2024-07-06] MEDS: cefTRIAXone 1,000 MG in SODIUM CHLORIDE 0.9% (Popper) 50 ML 100 MG IV (08:08)
[2024-07-06] MEDS: SENNA TABLET 1 TAB PO (08:15)
[2024-07-06] MEDS: PANTOPRAZOLE INJ 40 MG VIAL IV (08:15)
[2024-07-06] MEDS: APIXABAN 2.5 MG TABLET 5 MG PO ×2 (08:51→20:56)
[2024-07-06 10:51] LABS: Misc Send Out* See Sep Rpt
[2024-07-06] MEDS: ACETAMINOPHEN 325 MG TABLET 650 MG PO ×2 (10:54→20:58)
[2024-07-06 13:29] LABS: Hematocrit 26.5 % (36.0-46.0)
[2024-07-06 13:40] LABS: Hemoglobin 8.4 g/dL (12.0-16.0)
--- NOTE | 2024-07-06 15:38 | PC.SS ---
Rounding note: if H&H declines, possible capsule endoscopy.
[2024-07-06] MEDS: INSULIN LISPRO (AdmeLOG) 1 UNIT/0.01 ML UNIT SC (17:02)
--- NOTE | 2024-07-06 18:18 | PD.IMPROG ---
Documentation for date of: 07/06/24 Subjective Subjective Interval history: Hemoglobin hematocrit 8.4 and 26.5 Exam Vital Signs Temp Pulse Resp BP Pulse Ox O2 Del Method O2 Flow Rate 97.3 F 88 25 H 129/60 99 Nasal Cannula 3 07/06/24 16:00 07/06/24 16:00 07/06/24 16:00 07/06/24 16:00 07/06/24 16:00 07/06/24 16:00 07/06/24 16:00 Objective Labs 07/06/24 10:42 07/06/24 05:36 Labs: Laboratory Results - last 24 hr 07/06/24 07/06/24 05:36 10:42 WBC 9.3 RBC 2.79 L Hgb 8.3 L 8.4 L Hct 25.3 L 26.5 L MCV 91 MCH 29.7 MCHC 32.8 RDW Std Deviation 50.6 H Plt Count 286 D Neut % (Auto) 70 Lymph % (Auto) 14 [place] % (Auto) 8 Eos % (Auto) 4 Baso % (Auto) 0 Neut # (Auto) 6.5 Lymph # (Auto) 1.3 [place] # (Auto) 0.8 Eos # (Auto) 0.4 Baso # (Auto) 0.0 Immature Gran # (Auto) 0.29 H Absolute Nucleated RBC 0.00 Immature Gran % 3 H Nucleated RBC % 0 Sodium 139 Potassium 4.0 Chloride 105 Carbon Dioxide 26.7 Anion Gap 7 BUN 15 Creatinine 0.6 Estim Creat Clear Calc 65.1 eGFR > 60 BUN/Creatinine Ratio 25 H Glucose 114 H Calculated Osmolality 279 Calcium 8.6 Corrected Calcium 9.4 Phosphorus 3.3 Magnesium 1.9 Total Bilirubin 0.8 AST 11 ALT < 7 L Alkaline Phosphatase 121 H Total Protein 4.9 L Albumin 3.0 L Globulin 1.9 L Albumin/Globulin Ratio 1.6 Misc Test Result Cancelled Impressions Impression: Gastritis By a different key entry operator negative colonoscopy couple months ago If the hemoglobin hematocrit is stable patient can be discharged home for an outpatient capsule endoscopy to be referred by her primary care physician Case discussed with the internal medicine team Assessment & Plan A&P Narrative # Acute posthemorrhagic anemia Initial test of choice fiberoptic upper endoscopy with possible biopsy possible therapeutic intervention under intravenous moderate sedation scheduled for today In case EGD is negative we will schedule the patient for a fiberoptic colonoscopy Eliquis is important for the patient I will suggest we do not discontinue that and keep the patient on Eliquis as she has a history of bilateral lower extremity deep vein fibrosis as well as bilateral pulmonary embolism She might have antiphospholipid syndrome Other medical problems include # Recent right hip ORIF # Bilateral pulmonary embolism # Bilateral deep vein thrombosis # Essential hypertension # Hyperlipidemia Thank you very much for the opportunity to participate in the care of this patient Time Spent With Patient Time: Total time spent is greater than 50% in coordination of care (as documented) at patient's floor/unit and/or counseling patient:
--- NOTE | 2024-07-06 20:08 | ESPR_ITS ---
<Statement entered by Kuldip Michel MD - 07/06/24 20:26> Was seen and examined at the bedside. Patient had a hemoglobin drop this morning. Patient reported that she is feeling better and was wondering when she can go home. GI specialist recommended that patient can benefit with outpatient capsule endoscopy as repeat hemoglobin remained around 8.4. Eliquis was restarted. Colonoscopy was deferred as patient had colonoscopy past 3 months ago. Will likely discharge tomorrow. All labs and orders were reviewed. I saw and examined the patient, and I agree with current management stated by Dr Kofi MD,PGY1. Plan of care was discussed with the attending physician and resident physician. Disclaimer: Despite multiple revisions, due to the dictation software being used, the document bellow may not be free of grammatical errors including phonetic/typographic errors. However, this does not deter from our commitment to providing health care in the patient's best interest in mind. Dr. Anand MD, PGY 2 Documentation for date of: 07/06/24 Subjective Subjective Interval history: No acute overnight events reported. Patient seen and examined at bedside this morning. Patient denies any chest pain shortness of breath dizziness or abdominal pain. Vitals are stable and labs are significant for an acute drop in hemoglobin to 8.3 per GI recommendation patient will likely need a capsule endoscopy because she had a colonoscopy done approximately 2 to 3 months ago which came back normal without any signs of acute bleeding. Patient will need a referral by primary care for the capsule endoscopy and will need to follow-up on the hypercoagulable workup outpatient. Exam Vital Signs Temp Pulse Resp BP Pulse Ox O2 Del Method O2 Flow Rate 97.3 F 88 25 H 129/60 99 Nasal Cannula 3 07/06/24 16:00 07/06/24 16:00 07/06/24 16:00 07/06/24 16:00 07/06/24 16:00 07/06/24 16:07/06/24 16:00 Narrative Exam GENERAL: A&Ox3 . Awake, Not in acute distress NEURO: no focal neurological deficits HEENT: Atraumatic, Normocephalic. mucous membranes moist. Eyes open, symmetrical, & clear HEART: Normal Heart Sounds LUNGS: Clear to auscultation with no wheezing or crackles. ABDOMEN: soft, non-distended, non-tender, bowel sounds heard, no guarding or rebound tenderness SKIN: No Rash or ecchymoses, right hip surgical site looks clean and dry EXTREMITIES: 1+ pitting edema bilaterally in LE, tenderness, able to move all 4 extremities, pedal pulses palpated Objective Labs 07/07/24 04:36 07/07/24 04:36 Labs: Laboratory Results - last 24 hr 07/06/24 07/06/24 05:36 10:42 WBC 9.3 RBC 2.79 L Hgb 8.3 L 8.4 L Hct 25.3 L 26.5 L MCV 91 MCH 29.7 MCHC 32.8 RDW Std Deviation 50.6 H Plt Count 286 D Neut % (Auto) 70 Lymph % (Auto) 14 Tripp % (Auto) 8 Eos % (Auto) 4 Baso % (Auto) 0 Neut # (Auto) 6.5 Lymph # (Auto) 1.3 Tripp # (Auto) 0.8 Eos # (Auto) 0.4 Baso # (Auto) 0.0 Immature Gran # (Auto) 0.29 H Absolute Nucleated RBC 0.00 Immature Gran % 3 H Nucleated RBC % 0 Sodium 139 Potassium 4.0 Chloride 105 Carbon Dioxide 26.7 Anion Gap 7 BUN 15 Creatinine 0.6 Estim Creat Clear Calc 65.1 eGFR > 60 BUN/Creatinine Ratio 25 H Glucose 114 H Calculated Osmolality 279 Calcium 8.6 Corrected Calcium 9.4 Phosphorus 3.3 Magnesium 1.9 Total Bilirubin 0.8 AST 11 ALT < 7 L Alkaline Phosphatase 121 H Total Protein 4.9 L Albumin 3.0 L Globulin 1.9 L Albumin/Globulin Ratio 1.6 Misc Test Result Cancelled Quality Measures Quality Measures none Advance care planning discussed with:: patient Assessment & Plan Assessment Current Active Medications: Generic Name Dose Route Start Last Admin Trade Name Freq PRN Reason Stop Dose Admin Acetaminophen 650 mg 07/03/24 23:26 07/06/24 10:54 Acetaminophen 325 Mg Tablet PO 08/02/24 23:25 650 mg Q6H PRN Administration Fever >100 or pain 1-3 Apixaban 5 mg 07/06/24 09:00 07/06/24 08:51 Apixaban 2.5 Mg Tablet PO 07/27/24 08:59 5 mg BID SRI Administration Atorvastatin Calcium 40 mg 07/05/24 21:00 07/05/24 20:46 Atorvastatin Calcium 20 Mg Tablet PO 08/04/24 20:59 40 mg HS SRI Administration Dextrose 25 ml 07/03/24 23:33 Dextrose 50%-Water Inj 50 Ml Syringe IV 08/02/24 23:32 Q15MIN PRN BG 50-70 responsive npo pt Dextrose 50 ml 07/03/24 23:33 Dextrose 50%-Water Inj 50 Ml Syringe IV 08/02/24 23:32 Q15MIN PRN BG <50 OR BG <70 & pt unresponsive Gabapentin 300 mg 07/03/24 23:35 07/05/24 20:46 Gabapentin 300 Mg Capsule PO 08/02/24 23:34 300 mg HS SRI Administration Glucagon 1 mg 07/03/24 23:33 Glucagon Inj 1 Mg Vial IM Q15MIN PRN BG <70, and no IV access Ceftriaxone Sodium/Dextrose 50 mls @ 100 mls/hr 07/07/24 09:00 Rocephin/D5w 1gm Iv Premix IV 07/11/24 08:59 QDAY SRI Insulin Human Lispro 0 unit 07/04/24 07:30 07/06/24 17:02 Insulin Lispro (Admelog) 1 Unit/0.01 Ml Unit SC 08/03/24 07:29 1 unit AC SRI Administration Protocol Oxycodone/Acetaminophen 1 tab 07/03/24 23:34 Oxycodone/Apap 5/325 Tablet PO 07/08/24 23:44 Q6H PRN pain 5-10, breakthrough Pantoprazole Sodium 40 mg 07/04/24 09:00 07/06/24 08:15 Pantoprazole Inj 40 Mg Vial IV 08/03/24 08:59 40 mg QDAY SRI Administration Polyethylene Glycol 17 gm 07/04/24 10:45 07/06/24 08:08 Polyethylene Glycol 17 Gm Packet PO 08/03/24 10:44 17 gm QDAY SRI Administration Sennosides 1 tab 07/04/24 09:00 07/06/24 08:15 Senna Tablet PO 08/03/24 08:59 1 tab QDAY SRI Administration Protocol Plan Ms. Norris is a 83 y/o female with PMHx total hip replacement (performed by Dr. Wiggins on June 24) hypertension, hyperlipidemia, bilateral PE, DVT (on Eliquis), avascular necrosis of right hip, history of thyroid nodule s/p biopsy, MDR UTI who is admitted for symptomatic anemia and DVT. #Symptomatic iron deficiency anemia #Acute blood loss anemia, upper or lower GI -Patient's hemoglobin about a month ago was 12, on admission Hgb 7.8, Hct 23.9 -Patient denies dark stools or coughing up blood or vomiting blood -Patient does endorse fatigue, generalized weakness and diziness -Patient has history of DVT and PE for which she was taking eliquis daily -iron panel Iron 32, TIBC 309, Iron saturation 10, unsat iron binding 277 Plan: -transfusion protocol hemoglobin below 7 -Trend CBC -Protonix 40 mg IV every day -Avoid NSAIDs -Consult GI, appreciate recommendations -Patient underwent EGD which showed erythematous mucosa without any signs of any active bleeding. -Pt underwent colonoscopy 2-3 months ago in [facility] therefore repeat conoscopy is unnecssary as per GI. Per Pt the findings were normal with no acute signs of bleeding. pt will need capsule endoscopy for which pt will need referral from primary care. 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 -Seems to be provoked DVT due to immobilization and post operative -When patient had mechanical thrombectomy last year, however the procedure was not fully successful and had to have IVC there and DOAC Plan: -per GI recommendation resumed home Eliquis #History of hypertension #History of hyperlipidemia -Blood pressure is soft on admission -Lipid panel cholesterol 209, HDL 63, LDL 86, triglycerides 118 Plan: -will continue to monitor BP and will add antihypertensive as needed -started atorvastatin 40mg HS # Insulin-dependent type 2 diabetes mellitus Takes glargine and sliding scale at home Plan: -Sliding scale insulin -Hypoglycemic protocol in place -Blood sugar checks with meals -Resume with carb low consistent diet #Health Maintenance Disposition: Telemetry DVT prophylaxis: SCD GI prophylaxis: Protonix Diet: NPO CODE STATUS: Full Assessment and plan discussed with my senior resident Dr. Michel & attending physician Dr. Cecy Kirby (PGY-1)- Internal medicine resident Attending Provider Attestation/Addendum I have discussed and was present for the essential components of the history, physical examination, diagnosis, and treatment plan with the resident. I agree with the patient's care as documented by the resident and amended herein by me. Saran Sam DO. Although this document has been carefully reviewed, there may still be some phonetic and other typographical errors. These errors are purely grammatical due to imperfections in the software program and should not be construed in any way to compromise the substance of the patient's medical care during this visit.
[2024-07-06] MEDS: ATORVASTATIN CALCIUM 20 MG TABLET 40 MG PO (20:55)
[2024-07-06] MEDS: GABAPENTIN 300 MG CAPSULE PO (20:55)
[2024-07-07] VITALS (7 sets, daily range): BP systolic 118–137; BP diastolic 60–81; PULSE 83–97; RESP 15–19; TEMP 36.1–36.4; O2SAT 24–97; BMI 28.2
[2024-07-07 06:03] LABS: Basophils % (Auto) 0 % (0-2.5); Eosinophils # (Auto) 0.5 Thou/mm3 (0.0-0.5); Eosinophils % (Auto) 6 % (0-10); Immature Granulocytes % (Auto) 2 % (0-0); Immature Granulocytes Auto 0.15 Thou/mm3 (0.00-0.00); Lymphocytes # (Auto) 1.3 Thou/mm3 (1.0-4.8); Lymphocytes % (Auto) 15 % (10-50); Mean Corpuscular HGB Conc 32.2 g/dl (31.0-37.0); Mean Corpuscular Hemoglobin 29.8 pg (25.0-35.0); Mean Corpuscular Volume 93 fL (80-100); Monocytes # (Auto) 0.8 Thou/mm3 (0.0-0.8); Monocytes % (Auto) 9 % (0-12); Neutrophils # (Auto) 5.9 Thou/mm3 (1.8-7.7); Neutrophils % (Auto) 68 % (37-80); Nucleated Red Blood Cell % 0 /100 WBC (0); Platelet Count 326 Thou/mm3 (140-440); RDW Standard Deviation 50.8 fL (36.4-46.3); Red Blood Count 2.92 Miln/mm3 (4.00-5.20); White Blood Count 8.7 Thou/mm3 (3.6-11.0)
[2024-07-07 06:07] LABS: Hemoglobin 8.7 g/dL (12.0-16.0)
[2024-07-07 06:44] LABS: Alanine Aminotransferase < 7 U/L (10-49); Albumin, Serum 2.9 gm/dL (3.4-4.8); Albumin/Globulin Ratio 1.4 (1.2-2.2); Alkaline Phosphatase 129 U/L (46-116); Anion Gap 8 (7-16); Aspartate Amino Transferase 14 U/L (0-34); BUN/Creatinine Ratio 18 Ratio (12-20); Bilirubin,Total 0.7 mg/dL (0.3-1.2); Blood Urea Nitrogen 11 mg/dL (9-23); Calcium 8.6 mg/dL (8.3-10.6); Calcium (Corrected) 9.5 mg/dL (8.5-10.1); Carbon Dioxide 26.6 mMol/L (20.0-31.0); Chloride 105 mMol/L (98-107); Creatinine (Component) 0.6 mg/dL (0.6-1.3); Estimated Creatinine Clearance 65.1 mL/min (>60); Globulin 2.1 gm/dL (2.3-3.5); Glucose 107 mg/dL (74-106); Magnesium 1.9 mg/dL (1.6-2.6); Osmolality,Calculated 278 (275-295); Phosphorous 3.5 mg/dL (2.4-5.1); Sodium 140 mMol/L (136-145); eGFR > 60 See Note
[2024-07-07] MEDS: cefTRIAXone/D5w 1gm IV premix 50 ML IV (08:59)
[2024-07-07] MEDS: SENNA TABLET 1 TAB PO (08:59)
[2024-07-07] MEDS: PANTOPRAZOLE INJ 40 MG VIAL IV (08:59)
[2024-07-07] MEDS: POLYETHYLENE GLYCOL 17 GM PACKET PO (08:59)
[2024-07-07] MEDS: APIXABAN 2.5 MG TABLET 5 MG PO (08:59)
--- NOTE | 2024-07-07 10:23 | PC.SS ---
SS update: plan is for patient to d/c home today.
--- NOTE | 2024-07-07 11:31 | PD.RESDS ---
Planned Discharge Date 07/07/24 DS: Providers Provider Date of admission: 07/03/24 22:06 Primary care physician: Mari Crowder PA-C Admitting Provider: Tomasz Schulte MD Attending Provider on Admission: Williams Sam DO Consults: 07/04/24 10:36 Consult to Gastroenterology Routine Comment: Consulting Provider: Stephany Pires Attending Provider on DC: Megan Kirby MD Discharging Provider: Megan Kirby MD DS: Diagnosis Problem List Completed Was Problem List Reviewed/Reconciled?: Yes Hospital Course Hospital Course Hospital course: Patient was an 83-year-old female with HTN, HLD, history of bilateral PE & DVT on Eliquis, recent total hip replacement due to avascular necrosis of right hip and thyroid nodule s/p biopsy pending results who initially presented with weakness/fatigue, RLE pain/swelling.? She was found to have a new DVT, and labs also revealed a hemoglobin was 7.8, which was 12 ~1 month ago.? She was admitted for workup of symptomatic anemia and new DVT.? Decision was made to hold Eliquis during workup of GI bleed.? EGD was done but did not find any active bleed.? Patient had a colonoscopy done approximately 2 months ago, which was normal.? Case was discussed with GI who recommended to resume patient's Eliquis as hemoglobin has been stable, and she would need a capsule endoscopy done outpatient.? Patient was initially deemed stable for discharge however after discussing with CM, she required a PT eval before discharging to SNF.? PT eval returned and patient was ready for discharge.? When family was being updated over the phone, [id number] stated she tested positive for COVID and had visited with the patient a few days ago before she had tested herself, therefore COVID test was done, returned negative, and patient was stable for discharge with transport set up at 1930. Family updated. #Symptomatic iron deficiency anemia #?Acute blood loss anemia #Acute on chronic DVT #History of bilateral PE #History of IVC filter #S/p total hip replacement on 06/23/2024 #HTN #HLD #T2DM #Dysuria #History of recurrent UTIs Discharge plan: Follow-up with PCP within 1 week.? You will need to have your PCP to refer you for capsule endoscopy.? Your PCP will be able to follow-up on hypercoagulable workup that was ordered in the hospital/pending results Take medications as prescribed Added methenamine for UTI prophylaxis If your symptoms return or worsen, return to your nearest ED Patient seen and care discussed with my attending Dr. Sam. Tomas Anthony MD PGY-3 Status at Discharge Cognitive/behavioral status at discharge: AAOx3 Time Spent with Patient Time attestation: Total time spent providing and/or coordinating discharge services: Time spent: Greater than 30 minutes Exam Vital Signs Temp Pulse Resp BP Pulse Ox O2 Del Method O2 Flow Rate 97.6 F 86 18 135/70 H 24 L Room Air 3 07/07/24 08:00 07/07/24 08:00 07/07/24 08:00 07/07/24 08:00 07/07/24 08:00 07/07/24 08:00 07/06/24 16:00 Narrative Exam GENERAL: A&Ox3 . Awake, pleasant to speak with NEURO: no focal neurological deficits HEENT: Atraumatic, Normocephalic. mucous membranes moist. Eyes open, symmetrical, & clear HEART: Normal Heart Sounds LUNGS: Clear to auscultation with no wheezing or crackles. ABDOMEN: soft, non-distended, non-tender, bowel sounds heard, no guarding or rebound tenderness SKIN: No Rash or ecchymoses, right hip surgical site looks clean and dry EXTREMITIES: trace edema bilaterally in LE, tenderness, able to move all 4 extremities, pedal pulses palpated Discharge Plan Plan Patient Disposition: Xfer Skilled [facility]sg Fac (SNF) Patient condition on transfer: Stable Care Plan Goals: -Follow up with primary care within 1 week -Take medications as prescribed -You have been started on a prophylactic medication for UTI called methenamine for 1 month -Please follow up with primary care for referral for capsule endoscopy and follow up with the hypercoagulable work up done in the hospital that is pending results -If you symptoms return or wrosen please return to ED Prescriptions/Referrals Prescriptions/Med Rec: New methenamine hippurate 1 gram tablet 1 g PO Q12H 30 Days Qty: 60 0RF Continued simvastatin 40 MG tablet 40 mg PO HS Qty: 90 pantoprazole 40 mg tablet,delayed release (DR/EC) 40 mg PO QDAY apixaban 5 mg (74 tabs) tablets,dose pack 5 mg PO BID Qty: 74 0RF furosemide [Lasix] 40 mg tablet 40 mg PO QAM sennosides-docusate sodium [Senna-S] 8.6-50 mg tablet 1 tab-cap PO QDAY Qty: 30 0RF acetaminophen [Acetaminophen Extra Strength] 500 mg tablet 1,000 mg PO Q6H MDD 1000mg PRN (Reason: pain) Qty: 90 0RF gabapentin 300 mg capsule 300 mg PO .qhs Qty: 30 0RF oxycodone 5 mg tablet 5 mg PO Q6H MDD 20 PRN (Reason: pain, severe) Qty: 28 0RF Rx Instructions: z96.65 potassium chloride 10 mEq tablet extended release 10 meq PO QDAY insulin glargine 100 unit/mL solution 5 unit subcut QPM insulin lispro [Humalog U-100 Insulin] 100 unit/mL solution 1 sliding scale dose subcut USEASDIRECTD Held losartan 50 mg tablet 100 mg PO HS Hold Instructions: Resume on 07/08/24. HOLD if SBP <110 Discontinued doxycycline hyclate 100 mg tablet 100 mg PO BID Qty: 14 0RF Referrals: Mari Crowder PA-C [Primary Care Provider] - Patient/Caregiver Discharge Instructions Discharge Activity: as per physical therapy Print Language: Occitan Stand Alone Forms: Mayra Award Info., Patient Portal Info Letter Discharge Order Discharge Orders: Discharge (Routine); Ordered 07/07/24 Ordered By: Tomas Anthony Quality Discharge Quality Measures VTE therapy Attestestation Attestation I have discussed and was present for the essential components of the discharge history, physical examination, diagnosis, and discharge treatment plan with the resident. I agree with the patient's discharge care as documented by the resident and amended herein by me. Saran Sam DO. The patient understood all discharge instructions, all questions were answered satisfactorily. The patient was instructed to return to the Emergency Department is symptoms worsened or persisted. Patient was stable, afebrile and tolerating p.o. intake at time of discharge to SNF. Patient cleared to resume Eliquis per gastroenterology, hypercoagulability labs were ordered however patient will need to follow-up with PCP for results as they take about a week to result. All questions answered satisfactorily Although this document has been carefully reviewed, there may still be some phonetic and other typographical errors. These errors are purely grammatical due to imperfections in the software program and should not be construed in any way to compromise the substance of the patient's medical care during this visit.
--- NOTE | 2024-07-07 14:41 | PC.SS ---
Addendum entered by OSIEL Brennan 07/07/24 17:06: ETA for 6:30pm. SNF staff Mary is aware, family was notified and bed side nurse is aware. Addendum entered by OSIEL Brennan 07/07/24 16:54: [facility]CON obtained by transfer nurse as patients family requesting transport services. Patient on 3L of oxygen. Pending ETA for transport. Addendum entered by OSIEL Brennan 07/07/24 16:30: SS update: Mary Mota at [facility] called confirming they received authorization for the patient to return to SNF. Patient on 3L of Oxygen per bed side nurse. Addendum entered by OSIEL Brennan 07/07/24 15:53: Updated clinicals sent to [facility] via [employer]. Addendum entered by OSIEL Brennan 07/07/24 15:45: SS update: PT eval completed, notified Gia with [facility] to review if patient able to return to [facility] today. Pending response. Original Note: SS follow up: patient comes from [facility] and has only been there just a few days. Per [employer] insurance, as patient has been here more than three days, they are requesting an updated PT eval to determine if authorization can be provided for the patient to return to SNF. Updated Dr. Anthony to order PT and notified PT staff.
--- NOTE | 2024-07-07 15:57 | ESPR_ITS ---
<Statement entered by Kuldip Michel MD - 07/07/24 16:54> Patient was seen and examined at the bedside. No acute overnight events were reported. Labs were stable with Hemoglobin around 8.7. Pressures recommended the patient will benefit from capsule endoscopy as outpatient. No plans for EGD. Patient's insurance wants to reevaluate the patient for physical therapy evaluation. PT evaluation was ordered we will follow-up with their recommendations. Continuing Eliquis as per GI recommendations. All labs and orders were reviewed. I saw and examined the patient, and I agree with current management stated by Dr Kofi MD,PGY1. Plan of care was discussed with the attending physician and resident physician. Disclaimer: Despite multiple revisions, due to the dictation software being used, the document bellow may not be free of grammatical errors including phonetic/typographic errors. However, this does not deter from our commitment to providing health care in the patient's best interest in mind. Dr. Cherelle MD, PGY 2 Documentation for date of: 07/07/24 Subjective Subjective Interval history: No acute overnight events. Pt is seen and examined at bedside this morning. Vitals and labs are within normal ranges. Pt was scheduled to be discharged today however, Pt's insurance requires PT evaluation before discharge to SNF. therefore pending authorization for SNF, as pt is s/p hip replacement surgery earlier this month. Pt has no complains. Exam Vital Signs Temp Pulse Resp BP Pulse Ox O2 Del Method O2 Flow Rate 97.4 F 90 15 118/65 91 L Room Air 3 07/07/24 12:00 07/07/24 13:02 07/07/24 12:00 07/07/24 12:00 07/07/24 12:00 07/07/24 12:00 07/06/24 16:00 Narrative Exam GENERAL: A&Ox3 . Awake, Not in acute distress NEURO: no focal neurological deficits HEENT: Atraumatic, Normocephalic. mucous membranes moist. Eyes open, symmetrical, & clear HEART: Normal Heart Sounds LUNGS: Clear to auscultation with no wheezing or crackles. ABDOMEN: soft, non-distended, non-tender, bowel sounds heard, no guarding or rebound tenderness SKIN: No Rash or ecchymoses, right hip surgical site looks clean and dry EXTREMITIES: trace edema bilaterally in LE, tenderness, able to move all 4 extremities, pedal pulses palpated Objective Labs 07/07/24 04:36 07/07/24 04:36 Labs: Laboratory Results - last 24 hr 07/07/24 04:36 WBC 8.7 RBC 2.92 L Hgb 8.7 L Hct 27.0 L MCV 93 MCH 29.8 MCHC 32.2 RDW Std Deviation 50.8 H Plt Count 326 D Neut % (Auto) 68 Lymph % (Auto) 15 Todd % (Auto) 9 Eos % (Auto) 6 Baso % (Auto) 0 Neut # (Auto) 5.9 Lymph # (Auto) 1.3 Todd # (Auto) 0.8 Eos # (Auto) 0.5 Baso # (Auto) 0.0 Immature Gran # (Auto) 0.15 H Absolute Nucleated RBC 0.00 Immature Gran % 2 H Nucleated RBC % 0 Sodium 140 Potassium 4.0 Chloride 105 Carbon Dioxide 26.6 Anion Gap 8 BUN 11 Creatinine 0.6 Estim Creat Clear Calc 65.1 eGFR > 60 BUN/Creatinine Ratio 18 Glucose 107 H Calculated Osmolality 278 Calcium 8.6 Corrected Calcium 9.5 Phosphorus 3.5 Magnesium 1.9 Total Bilirubin 0.7 AST 14 ALT < 7 L Alkaline Phosphatase 129 H Total Protein 5.0 L Albumin 2.9 L Globulin 2.1 L Albumin/Globulin Ratio 1.4 Quality Measures Quality Measures none Advance care planning discussed with:: patient Assessment & Plan Assessment Current Active Medications: Generic Name Dose Route Start Last Admin Trade Name Freq PRN Reason Stop Dose Admin Acetaminophen 650 mg 07/03/24 23:26 07/06/24 20:58 Acetaminophen 325 Mg Tablet PO 08/02/24 23:25 650 mg Q6H PRN Administration Fever >100 or pain 1-3 Apixaban 5 mg 07/06/24 09:00 07/07/24 08:59 Apixaban 2.5 Mg Tablet PO 07/27/24 08:59 5 mg BID SRI Administration Atorvastatin Calcium 40 mg 07/05/24 21:00 07/06/24 20:55 Atorvastatin Calcium 20 Mg Tablet PO 08/04/24 20:59 40 mg HS SRI Administration Dextrose 25 ml 07/03/24 23:33 Dextrose 50%-Water Inj 50 Ml Syringe IV 08/02/24 23:32 Q15MIN PRN BG 50-70 responsive npo pt Dextrose 50 ml 07/03/24 23:33 Dextrose 50%-Water Inj 50 Ml Syringe IV 08/02/24 23:32 Q15MIN PRN BG <50 OR BG <70 & pt unresponsive Gabapentin 300 mg 07/03/24 23:35 07/06/24 20:55 Gabapentin 300 Mg Capsule PO 08/02/24 23:34 300 mg HS SRI Administration Glucagon 1 mg 07/03/24 23:33 Glucagon Inj 1 Mg Vial IM Q15MIN PRN BG <70, and no IV access Ceftriaxone Sodium/Dextrose 50 mls @ 100 mls/hr 07/07/24 09:00 07/07/24 08:59 Rocephin/D5w 1gm Iv Premix IV 07/11/24 08:59 100 mls/hr QDAY SRI Administration Insulin Human Lispro 0 unit 07/04/24 07:30 07/07/24 08:58 Insulin Lispro (Admelog) 1 Unit/0.01 Ml Unit SC 08/03/24 07:29 Not Given AC SRI Protocol Oxycodone/Acetaminophen 1 tab 07/03/24 23:34 Oxycodone/Apap 5/325 Tablet PO 07/08/24 23:44 Q6H PRN pain 5-10, breakthrough Pantoprazole Sodium 40 mg 07/04/24 09:00 07/07/24 08:59 Pantoprazole Inj 40 Mg Vial IV 08/03/24 08:59 40 mg QDAY SRI Administration Polyethylene Glycol 17 gm 07/04/24 10:45 07/07/24 08:59 Polyethylene Glycol 17 Gm Packet PO 08/03/24 10:44 17 gm QDAY SRI Administration Sennosides 1 tab 07/04/24 09:00 07/07/24 08:59 Senna Tablet PO 08/03/24 08:59 1 tab QDAY SRI Administration Protocol Plan Ms. Norris is a 83 y/o female with PMHx total hip replacement (performed by Dr. Wiggins on June 24) hypertension, hyperlipidemia, bilateral PE, DVT (on Eliquis), avascular necrosis of right hip, history of thyroid nodule s/p biopsy, MDR UTI who is admitted for symptomatic anemia and DVT. #Symptomatic iron deficiency anemia #Acute blood loss anemia, upper or lower GI -Patient's hemoglobin about a month ago was 12, on admission Hgb 7.8, Hct 23.9 -Patient denies dark stools or coughing up blood or vomiting blood -Patient does endorse fatigue, generalized weakness and diziness -Patient has history of DVT and PE for which she was taking eliquis daily -iron panel Iron 32, TIBC 309, Iron saturation 10, unsat iron binding 277 Plan: -transfusion protocol hemoglobin below 7 -Trend CBC -Protonix 40 mg IV every day -Avoid NSAIDs -Consult GI, appreciate recommendations -Patient underwent EGD which showed erythematous mucosa without any signs of any active bleeding. -Pt underwent colonoscopy 2-3 months ago [place] therefore repeat conoscopy is unnecssary as per GI. Per Pt the findings were normal with no acute signs of bleeding. pt will need capsule endoscopy for which pt will need referral from primary care. 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 -Seems to be provoked DVT due to immobilization and post operative -When patient had mechanical thrombectomy last year, however the procedure was not fully successful and had to have IVC there and DOAC Plan: -per GI recommendation resumed home Eliquis #History of hypertension #History of hyperlipidemia -Blood pressure is soft on admission -Lipid panel cholesterol 209, HDL 63, LDL 86, triglycerides 118 Plan: -will continue to monitor BP and will add antihypertensive as needed -started atorvastatin 40mg HS # Insulin-dependent type 2 diabetes mellitus Takes glargine and sliding scale at home Plan: -Sliding scale insulin -Hypoglycemic protocol in place -Blood sugar checks with meals -Resume with carb low consistent diet #Health Maintenance Disposition: Telemetry DVT prophylaxis: SCD GI prophylaxis: Protonix Diet: NPO CODE STATUS: Full Assessment and plan discussed with my senior resident Dr. Michel & attending physician Dr. Cecy Kirby (PGY-1)- Internal medicine resident Attending Provider Attestation/Addendum I have discussed and was present for the essential components of the history, physical examination, diagnosis, and treatment plan with the resident. I agree with the patient's care as documented by the resident and amended herein by me. Saran Sam DO. Although this document has been carefully reviewed, there may still be some phonetic and other typographical errors. These errors are purely grammatical due to imperfections in the software program and should not be construed in any way to compromise the substance of the patient's medical care during this visit.
[2024-07-07 18:44] LABS: COVID-19 Antigen (In-House) Negative (Negative)
--- NOTE | 2024-07-07 19:30 | PC.NURSE ---
Trudi nurse received report Yu Lynne. All questions answerd. EMS here to transfer patient.
[2024-07-09 06:33] LABS: Protein C Activity* 77 % normal (70-180)
[2024-07-09 06:34] LABS: Protein S Antigen, Total* 112 % normal (70-140)
[2024-07-12 06:58] LABS: Antithrombin III, Activity 67 % normal (80-135); Antithrombin III, Antigen 82 % normal (80-120); Hexagonal Phase Confirm WEAKLY POSITIVE (NEGATIVE); PTT-LA Screen 49 seconds (< OR = 40); Protein C Antigen, Total* 84 % normal (70-140); Protein S Activity* 56 % normal (60-140); Thrombin Clotting Time 19 sec (13-19); dRVVT Screen 41 seconds (< OR = 45)
[2024-07-13 07:45] LABS: Factor V Leiden Mutation NEGATIVE; Homocysteine* 8.7 umol/L (<10.4)
== END 2024-07-07 19:44 | disposition skilled nursing facility (03) | DRG 299 ==
LOC: SERX 22:14 → SERHOLD 22:20 → S2SX 07-04 05:26 → S3NX 07-04 14:02
PROVIDERS: Specialist; Student in an Organized Health Care Education/Training Program; Admitting Provider Internal Medicine; Emergency Provider Emergency Medicine; PCP Physician Assistant; Visit Provider Student in an Organized Health Care Education/Training Program
PROC: 0DB78ZX Excision of Stomach, Pylorus, Via Natural or Artificial Opening Endoscopic, Diagnostic (ICD-10-PCS; CPT 43239; principal; 2024-07-04 15:30)
DX: I82.411 Acute embolism and thrombosis of right femoral vein (principal); J18.9 Pneumonia, unspecified organism; D62 Acute posthemorrhagic anemia; I31.39 Other pericardial effusion (noninflammatory); M87.88 Other osteonecrosis, other site; Z16.24 Resistance to multiple antibiotics; I82.431 Acute embolism and thrombosis of right popliteal vein; E78.5 Hyperlipidemia, unspecified; E04.1 Nontoxic single thyroid nodule; K29.70 Gastritis, unspecified, without bleeding; I11.0 Hypertensive heart disease with heart failure; R30.0 Dysuria; I50.9 Heart failure, unspecified; M16.11 Unilateral primary osteoarthritis, right hip; E11.9 Type 2 diabetes mellitus without complications; Z96.641 Presence of right artificial hip joint; Z79.4 Long term (current) use of insulin; Z86.711 Personal history of pulmonary embolism; Z87.440 Personal history of urinary (tract) infections; Z99.3 Dependence on wheelchair; Z95.828 Presence of other vascular implants and grafts; Z79.899 Other long term (current) drug therapy; Z79.01 Long term (current) use of anticoagulants; Z86.16 Personal history of COVID-19
CPT/HCPCS: 36415; 71045; 80053; 81001; 81241; 82274; 82728; 83090; 83540; 83550; 83605; 83735; 84100; 84145; 84484; 85014; 85018; 85025; 85046; 85300; 85301; 85302; 85303; 85305; 85306; 85610; 85613; 85730; 86038; 86146; 86147; 86148; 86850; 86900; 86901; 86923; 87040; 87081; 87811; 93005; 93971; 94762; 96365; 97162; 99285; J0696; J1200; J1815; J2250; J2470; J3010; J3475; J7050; P9016; A9270; G0328

== ENCOUNTER 2024-09-16 09:53 | Outpatient (AMB) | payer OTHER, SELFPAY ==
[2024-09-16 10:01] VITALS: BP 131/62; PULSE 56; RESP 17; TEMP 36.7; O2SAT 94; BMI 25.0
--- NOTE | 2024-09-16 10:01 | ORTHONT_ITS ---
Vital signs 09/16/24 10:01 Height 1.57 m Height Method Stated Weight 62.142 kg Weight Measurement Method Estimated by Patient BMI 25.0 BP 131/62 H Blood Pressure Source Automatic Cuff Blood Pressure Location Right Upper Arm Position Sitting Respiration 17 Pulse 56 L Pulse Source Monitor Temp 98.1 F Temp Source Temporal Artery Scan Pulse Oximetry (%) 94 L Oxygen Delivery Method Room Air Med/Allergies Allergies & Medications Allergies heparin Allergy (Verified 09/16/24 10:03) Medication Reconciliation simvastatin 40 mg tablet 40 mg PO HS ##90 07/27/15 [History Confirmed 09/16/24] pantoprazole 40 mg tablet,delayed release 40 mg PO QDAY 06/12/23 [History Confirmed 09/16/24] apixaban 5 mg (74 tabs) tablets in a dose pack 5 mg PO BID #74 tabs 06/14/23 [Rx Confirmed 09/16/24] furosemide 40 mg tablet (Lasix) 40 mg PO QAM 06/18/24 [History Confirmed 09/16/24] losartan 50 mg tablet 100 mg PO HS 06/18/24 [History Confirmed 09/16/24] Held on 07/07/24. Instructions: Resume on 07/08/24. HOLD if SBP <110 acetaminophen 500 mg tablet (Acetaminophen Extra Strength) 1,000 mg (2 x 500 mg) PO Q6H PRN pain #90 tabs 06/28/24 [Rx Confirmed 09/16/24] gabapentin 300 mg capsule 300 mg PO .qhs #30 caps 06/28/24 [Rx Confirmed 09/16/24] oxycodone 5 mg tablet 5 mg PO Q6H PRN pain, severe #28 tabs 06/28/24 [Rx Confirmed 09/16/24] sennosides 8.6 mg-docusate sodium 50 mg tablet (Senna-S) 1 tab-cap PO QDAY #30 tabs 06/28/24 [Rx Confirmed 09/16/24] insulin glargine 100 unit/mL subcutaneous solution 5 unit subcut QPM 07/03/24 [History Confirmed 09/16/24] insulin lispro 100 unit/mL subcutaneous solution (Humalog U-100 Insulin) 1 sliding scale dose subcut USEASDIRECTD 07/03/24 [History Confirmed 09/16/24] potassium chloride 10 mEq tablet,extended release 10 meq PO QDAY 07/03/24 [History Confirmed 09/16/24] Exam Exam Patient is in no acute distress and is cooperative with the examination today. Patient has a normal mood and affect. Breathing is nonlabored. In no respiratory distress. Bilateral extremities were evaluated and demonstrates sensation intact to light touch. Palpable pedal pulses are present. No significant edema is present. Right hip incision is clean dry and intact Leg lengths are equal Assessment and Plan Problem List (1) Arthritis of right hip: Status: Acute Plan: Patient is an 84-year-old female status post right total hip replacement. She is doing well. She did have to go to a group home due to her age. She was wheelchair-bound for over a year. She is walking with a walker but is limited by dizziness mainly. She is seeing her primary care doctor for this. We will get new x-rays and see her in approximately 4 to 6 weeks for routine follow-up Advanced Care Planning Discussion Advance care planning discussed with:: patient Office Procedures GNS Level of Care Nursing/Assessment Patient Status: Established Patient Nursing Assessment/Reassesment: Medication Reconciliation, Update PMH in EMR and Vital Signs Coordination of Care: Complex Care and Chronic Disease 1-5, Education Complex Pt/Fam, Consent,records obtained, informed consent, Results/Orders obtained and Staff clarify orders Established Patient Charge Established Patient Point Assignment: 95 Established Patient Point Charge: EP Level 3 (80-115) MA Intake Visit Data Collection New Patient or Established: Established Patient (seen at [facility] within 3 years) Reason for Visit:: FU RT HIP POST OP Seen by Clinical Staff ONLY (RN/MA): No Library Associate Required: No PCP or OBGYN visit in last 3 months: Yes Hx Now: No Do You Feel Safe at Home: Yes Authorities Contacted: N/A Questionairres Past Medical History Past Medical History Have you ever been diagnosed with any of the following: Neurological Problems Seizures: No Cardiology Problems Hypercholesterolemia: Yes Congestive Heart Failure: Yes Edema: Yes Hypertension: Yes Respiratory Problems Chronic Obstructive Pulmonary Disease (COPD): Yes Asthma: No Pulmonary Embolism: Yes Stomache/Intestinal Problems Gastroesophageal Reflux Disease: Yes Genital/Urinary Problems Renal Disease: No Reproductive Problems Previous Pregnancies: Yes Musculoskeletal Problems Arthritis: Yes Osteoporosis: No Head,Eye,Nose,Throat Problems Cataracts: Yes Endocrine Problems Diabetes Mellitus Type 1: No Diabetes Mellitus Type 2: No Blood Problems Sickle Cell Disease: No Psychologic Problems Depression: No Anxiety: No Other Problems Hospitalization: Yes Falls: Yes Blood Transfusions: No Blood Transfusion Reaction: No Anesthesia Reactions: No Cancer: No Surgical History Hysterectomy: Yes Thyroidectomy: Yes Subjective Visit Visit for: post op #2 (RT HIP ) Immunization / Flu Flu Vaccine in the Last 12 Months: Yes Flu Vaccine Exclusion Criteria: Already Received History of Present Illness Chief complaint: Right hip replacement Maria Luisa is a 84-year-old female who is almost 3 months out now from a right total hip replacement. She is doing well. She has no pain at all. She is able to stand for transfers and walk with a walker for a little bit. She reports that she is mainly limited by dizziness and she is seeing her primary care doctor for it. This is her first visit with me as she was in a group home Personal History Red flag PMH: none Pain Pain level (0-10): 0 Pain location: groin Pain timing: night and increases with activity Associated signs & symptoms: weakness Ambulatory data Ambulatory device: other (specify) (WHEELCHAIR ) Treatments Number of previous injections: 0 Number of Physical Therapy sessions: 4 Improvement with PT: Yes Improvement with NSAIDS: n/a Review of Systems Review of Systems: All systems negative unless otherwise noted in HPI.
--- NOTE | 2024-09-16 10:26 | XR_ITS ---
Examination:Right hip AP, lateral, AP pelvis 3 views Technique: Hip AP lateral, AP pelvis, 3 views Exam date and time:September 16, 2024 1042 hours INDICATIONS: Right hip replacement June 23, 2024 FINDINGS: Comparison June 23, 2024 Prominent osteopenia Total right hip arthroplasty. Satisfactory alignment. No loosening of the prosthetic components. Mild to moderate narrowing left hip joint IMPRESSION: Total right hip arthroplasty with satisfactory alignment.
== END 2024-09-16 10:30 | disposition home or self-care (01) ==
LOC: HODSRG 09:53
PROVIDERS: Supervising Provider Orthopaedic Surgery Adult Reconstructive Orthopaedic Surgery; Visit Provider Orthopaedic Surgery Adult Reconstructive Orthopaedic Surgery
DX: M16.11 Unilateral primary osteoarthritis, right hip (principal); Z96.641 Presence of right artificial hip joint; E78.00 Pure hypercholesterolemia, unspecified; I11.0 Hypertensive heart disease with heart failure; I50.9 Heart failure, unspecified; J44.9 Chronic obstructive pulmonary disease, unspecified; K21.9 Gastro-esophageal reflux disease without esophagitis
CPT/HCPCS: 73502; 99213; G0463

== ENCOUNTER → 2024-09-16 | Outpatient (CLI) | payer OTHER, SELFPAY ==
[2024-09-16 12:10] LABS: Basophils % (Auto) 0 % (0-2.5); Eosinophils # (Auto) 0.3 Thou/mm3 (0.0-0.5); Eosinophils % (Auto) 2 % (0-10); Hematocrit 26.3 % (36.0-46.0); Immature Granulocytes % (Auto) 1 % (0-0); Immature Granulocytes Auto 0.07 Thou/mm3 (0.00-0.00); Lymphocytes # (Auto) 2.7 Thou/mm3 (1.0-4.8); Lymphocytes % (Auto) 24 % (10-50); Mean Corpuscular HGB Conc 31.9 g/dl (31.0-37.0); Mean Corpuscular Hemoglobin 30.8 pg (25.0-35.0); Mean Corpuscular Volume 96 fL (80-100); Monocytes # (Auto) 0.8 Thou/mm3 (0.0-0.8); Monocytes % (Auto) 7 % (0-12); Neutrophils # (Auto) 7.4 Thou/mm3 (1.8-7.7); Neutrophils % (Auto) 66 % (37-80); Nucleated Red Blood Cell % 0 /100 WBC (0); Platelet Count 255 Thou/mm3 (140-440); Red Blood Count 2.73 Miln/mm3 (4.00-5.20); White Blood Count 11.2 Thou/mm3 (3.6-11.0)
[2024-09-16 12:12] LABS: Hemoglobin 8.4 g/dL (12.0-16.0)
[2024-09-16 12:25] LABS: Alanine Aminotransferase 25 U/L (10-49); Albumin, Serum 3.7 gm/dL (3.4-4.8); Albumin/Globulin Ratio 1.9 (1.2-2.2); Alkaline Phosphatase 140 U/L (46-116); Anion Gap 11 (7-16); Aspartate Amino Transferase 31 U/L (0-34); BUN/Creatinine Ratio 26 Ratio (12-20); Bilirubin,Total 0.3 mg/dL (0.3-1.2); Blood Urea Nitrogen 21 mg/dL (9-23); Calcium 8.4 mg/dL (8.3-10.6); Calcium (Corrected) 8.6 mg/dL (8.5-10.1); Carbon Dioxide 24.5 mMol/L (20.0-31.0); Chloride 112 mMol/L (98-107); Creatinine (Component) 0.8 mg/dL (0.6-1.3); Glucose 138 mg/dL (74-106); Osmolality,Calculated 297 (275-295); Potassium 3.9 mMol/L (3.4-5.1); Sodium 147 mMol/L (136-145); Total Protein 5.7 gm/dL (5.7-8.2); eGFR > 60 See Note
== END | disposition home or self-care (01) ==
PROVIDERS: PCP Physician Assistant; Referring Provider Physician Assistant; Visit Provider Physician Assistant
DX: E87.6 Hypokalemia (principal); B99.9 Unspecified infectious disease
CPT/HCPCS: 36415; 80053; 85025

== ENCOUNTER 2024-09-30 15:26 | Outpatient (RCR) | payer OTHER, SELFPAY | END 2024-10-18 23:59 | disposition home or self-care (01) | LOC: SCTC 15:26 | PROVIDERS: PCP Physician Assistant; Referring Provider Nurse Practitioner Family; Visit Provider Nurse Practitioner Family | DX: Z09 Encounter for follow-up examination after completed treatment for conditions other than malignant neoplasm (principal); Z86.718 Personal history of other venous thrombosis and embolism; Z79.01 Long term (current) use of anticoagulants; Z86.711 Personal history of pulmonary embolism; D50.9 Iron deficiency anemia, unspecified | CPT/HCPCS: 99212; G0463 ==

== ENCOUNTER 2024-10-28 13:03 | Outpatient (AMB) | payer OTHER, SELFPAY ==
--- NOTE | 2024-10-28 13:14 | PD.ORTHCLVIS ---
Vital signs 10/28/24 13:16 Height 1.57 m Height Method Stated Weight 60.356 kg Weight Measurement Method Standing Scale BMI 24.5 BP 147/77 H Blood Pressure Source Automatic Cuff Blood Pressure Location Left Upper Arm Position Sitting Respiration 18 Pulse 70 Pulse Source Monitor Temp 96.7 F L Temp Source Temporal Artery Scan Pulse Oximetry (%) 98 Oxygen Delivery Method Room Air Med/Allergies Allergies & Medications Allergies heparin Allergy (Verified 10/28/24 13:17) Medication Reconciliation simvastatin 40 mg tablet 40 mg PO HS ##90 07/27/15 [History Confirmed 10/28/24] pantoprazole 40 mg tablet,delayed release 40 mg PO QDAY 06/12/23 [History Confirmed 10/28/24] apixaban 5 mg (74 tabs) tablets in a dose pack 5 mg PO BID #74 tabs 06/14/23 [Rx Confirmed 10/28/24] furosemide 40 mg tablet (Lasix) 40 mg PO QAM 06/18/24 [History Confirmed 10/28/24] losartan 50 mg tablet 100 mg PO HS 06/18/24 [History Confirmed 10/28/24] Held on 07/07/24. Instructions: Resume on 07/08/24. HOLD if SBP <110 acetaminophen 500 mg tablet (Acetaminophen Extra Strength) 1,000 mg (2 x 500 mg) PO Q6H PRN pain #90 tabs 06/28/24 [Rx Confirmed 10/28/24] gabapentin 300 mg capsule 300 mg PO .qhs #30 caps 06/28/24 [Rx Confirmed 10/28/24] oxycodone 5 mg tablet 5 mg PO Q6H PRN pain, severe #28 tabs 06/28/24 [Rx Confirmed 10/28/24] sennosides 8.6 mg-docusate sodium 50 mg tablet (Senna-S) 1 tab-cap PO QDAY #30 tabs 06/28/24 [Rx Confirmed 10/28/24] insulin glargine 100 unit/mL subcutaneous solution 5 unit subcut QPM 07/03/24 [History Confirmed 10/28/24] insulin lispro 100 unit/mL subcutaneous solution (Humalog U-100 Insulin) 1 sliding scale dose subcut USEASDIRECTD 07/03/24 [History Confirmed 10/28/24] potassium chloride 10 mEq tablet,extended release 10 meq PO QDAY 07/03/24 [History Confirmed 10/28/24] Exam Exam Patient is in no acute distress and is cooperative with the examination today. Patient has a normal mood and affect. Breathing is nonlabored. In no respiratory distress. Bilateral extremities were evaluated and demonstrates sensation intact to light touch. Palpable pedal pulses are present. No significant edema is present. Right hip incision is clean dry and intact Leg lengths are equal R total hip replacement is in good alignment and position Assessment and Plan Problem List (1) Arthritis of right hip: Status: Acute Plan: Patient is an 84-year-old female status post right total hip replacement. She is doing well. She did have to go to a residential due to her age. She was wheelchair-bound for over a year. She is walking with a walker but is limited by dizziness mainly. She is seeing her primary care doctor for this. We will get new x-rays and see her in approximately 4 to 6 weeks for routine follow-up Advanced Care Planning Discussion Advance care planning discussed with:: patient and child Office Procedures GNS Level of Care Nursing/Assessment Patient Status: Established Patient Nursing Assessment/Reassesment: Medication Reconciliation, Update PMH in EMR and Vital Signs Coordination of Care: Complex Care and Chronic Disease 1-5, Education Complex Pt/Fam, Consent,records obtained, informed consent, Lab and Imaging orders, Results/Orders obtained and Staff clarify orders Established Patient Charge Established Patient Point Assignment: 110 Established Patient Point Charge: EP Level 3 (80-115) MA Intake Visit Data Collection New Patient or Established: Established Patient (seen at [facility] within 3 years) Reason for Visit:: XRAY RESULTS FU HIP Seen by Clinical Staff ONLY (RN/MA): No PCP or OBGYN visit in last 3 months: Yes Hx Now: No Do You Feel Safe at Home: Yes Authorities Contacted: N/A Questionairres Past Medical History Past Medical History Have you ever been diagnosed with any of the following: Neurological Problems Seizures: No Cardiology Problems Hypercholesterolemia: Yes Congestive Heart Failure: Yes Edema: Yes Hypertension: Yes Respiratory Problems Chronic Obstructive Pulmonary Disease (COPD): Yes Asthma: No Pulmonary Embolism: Yes Smoking: No Smoking Exposure: No Stomache/Intestinal Problems Gastroesophageal Reflux Disease: Yes Genital/Urinary Problems Renal Disease: No Reproductive Problems Previous Pregnancies: Yes Musculoskeletal Problems Arthritis: Yes Osteoporosis: No Head,Eye,Nose,Throat Problems Cataracts: Yes Endocrine Problems Diabetes Mellitus Type 1: No Diabetes Mellitus Type 2: No Blood Problems Sickle Cell Disease: No Psychologic Problems Depression: No Anxiety: No Other Problems Hospitalization: Yes Falls: Yes Blood Transfusions: No Blood Transfusion Reaction: No Anesthesia Reactions: No Cancer: No Surgical History Hysterectomy: Yes Thyroidectomy: Yes Subjective Visit Visit for: follow up visit, hip and x-rays (RESULTS) Immunization / Flu Flu Vaccine in the Last 12 Months: No Flu Vaccine Exclusion Criteria: No Exclusion Criteria History of Present Illness Chief complaint: Right hip replacement Maria Luisa is a 84-year-old female who is almost 3 months out now from a right total hip replacement. She is doing well. She has no pain at all. She is standing for transfers only Personal History Red flag PMH: none Pain Pain level (0-10): 0 Pain location: groin Pain timing: night and increases with activity Associated signs & symptoms: weakness Ambulatory data Ambulatory device: other (specify) (WHEEL CHAIR) Treatments Number of previous injections: 0 Improvement with previous injections: No Number of Physical Therapy sessions: 4 Improvement with PT: No Improvement with NSAIDS: no Review of Systems Review of Systems: All systems negative unless otherwise noted in HPI.
[2024-10-28 13:16] VITALS: BP 147/77; PULSE 70; RESP 18; TEMP 35.9; O2SAT 98; BMI 24.5
== END 2024-10-28 13:35 | disposition home or self-care (01) ==
LOC: HODSRG 13:03
PROVIDERS: Supervising Provider Orthopaedic Surgery Adult Reconstructive Orthopaedic Surgery; Visit Provider Orthopaedic Surgery Adult Reconstructive Orthopaedic Surgery
DX: M16.11 Unilateral primary osteoarthritis, right hip (principal); Z96.641 Presence of right artificial hip joint; Z99.3 Dependence on wheelchair; I11.0 Hypertensive heart disease with heart failure; I50.9 Heart failure, unspecified; E78.00 Pure hypercholesterolemia, unspecified; J44.9 Chronic obstructive pulmonary disease, unspecified; K21.9 Gastro-esophageal reflux disease without esophagitis
CPT/HCPCS: 99213; G0463

== ENCOUNTER 2024-11-02 14:05 | Outpatient (RCR) | payer OTHER, SELFPAY | END 2024-11-18 23:59 | disposition home or self-care (01) | LOC: SCTC 14:05 | PROVIDERS: PCP Physician Assistant; Referring Provider Family Medicine; Visit Provider Nurse Practitioner Family | DX: Z09 Encounter for follow-up examination after completed treatment for conditions other than malignant neoplasm (principal); Z86.718 Personal history of other venous thrombosis and embolism; Z86.711 Personal history of pulmonary embolism; Z79.01 Long term (current) use of anticoagulants; D50.9 Iron deficiency anemia, unspecified | CPT/HCPCS: 99212; G0463 ==

== ENCOUNTER → 2024-11-08 | Outpatient (CLI) | payer OTHER, SELFPAY ==
--- NOTE | 2024-11-08 13:30 | XR_ITS ---
Examination: CT chest with intravenous contrast CT abdomen with intravenous contrast CT pelvis with intravenous contrast CT chest without intravenous contrast CT abdomen without intravenous contrast CT pelvis without intravenous contrast 2-D coronal and sagittal reconstructions Time of exam: November 08, 2024 1421 hours INDICATIONS: Deficiency of other specified B group vitamins, vitamin D deficiency 3 weeks CTDI: vol (mGy) : 23.7 DLP: (mGycm): 1064 Technique: Multiple axial images of the chest, abdomen and pelvis with intravenous contrast, 3.0 mm slice thickness. Images obtained post intravenous injection Isovue 370 60 cc. 2-D sagittal and coronal reconstructions. Low dose protocols were performed. One or more of the following dose reduction techniques were used; automated exposure control, adjustment of the mA and/or KV according to patient size, use of iterative reconstruction technique. Findings: Large right thyroid nodules including 28 mm nodule No thoracic aortic aneurysm dilatation No pulmonary artery filling defects No paratracheal tracheobronchial or bronchopulmonary adenopathy 2 mm pulmonary nodule left upper lobe 2 mm pulmonary nodule right upper lobe 4 mm pulmonary nodule right middle lobe No pneumonia or pulmonary edema No visualized liver or splenic lesion Small gallstones. No pancreatic or adrenal mass. No hydronephrosis IVC filter noted Heavy abdominal aortic calcification no aneurysmal dilatation No pericecal inflammatory change No abdominal or pelvic lymphadenopathy. Colonic diverticulosis Contracted urinary bladder Total right hip arthroplasty Prominent osteopenia Grade 1 anterolisthesis L4 on L5 IMPRESSION: Subcentimeter pulmonary nodules as above, recommend continued 6 month follow-up CT chest without contrast No abdominal or pelvic lymphadenopathy No acute process in the abdomen and pelvis
== END | disposition home or self-care (01) ==
LOC: CCTX 13:10
PROVIDERS: PCP Physician Assistant; Referring Provider Nurse Practitioner Family; Visit Provider Nurse Practitioner Family
DX: R91.8 Other nonspecific abnormal finding of lung field (principal)
CPT/HCPCS: 71270; 74178; A4649; Q9967

== ENCOUNTER 2024-11-19 09:55 | Day surgery (SDC) | payer OTHER, SELFPAY ==
[2024-11-17 13:18] VITALS: BMI 23.8
[2024-11-19] VITALS (13 sets, daily range): BP systolic 116–175; BP diastolic 61–88; PULSE 68–86; RESP 13–20; TEMP 36.6–36.7; O2SAT 94–100; BMI 22.3
[2024-11-19] MEDS: BENZOCAINE 20% (Hurricaine) SPRAY 1 DOSE TOP (12:33)
[2024-11-19] MEDS: SODIUM CHLORIDE 0.9% 500 ML 500 ML 20 ML IV (12:33)
[2024-11-19] MEDS: MIDAZOLAM INJ 1 MG/ML VIAL 2 ML (ASD USE ONLY) 2 MG IVP (12:52)
[2024-11-19] MEDS: fentaNYL CIT INJ 50 mCg/ML AMP 2ML (ASD USE ONLY) IVP (12:52)
== END 2024-11-19 13:50 | disposition home or self-care (01) ==
PROVIDERS: PCP Family Medicine; Referring Provider Specialist; Visit Provider Specialist
PROC: 0DBE8ZX Excision of Large Intestine, Via Natural or Artificial Opening Endoscopic, Diagnostic (ICD-10-PCS; CPT 45380; principal; 2024-11-19 11:45)
PROC: (CPT 43239; 2024-11-19 11:45)
DX: D12.8 Benign neoplasm of rectum (principal); K64.9 Unspecified hemorrhoids; D50.9 Iron deficiency anemia, unspecified; K57.30 Diverticulosis of large intestine without perforation or abscess without bleeding; K31.89 Other diseases of stomach and duodenum; K29.70 Gastritis, unspecified, without bleeding; B37.81 Candidal esophagitis; K56.2 Volvulus; I48.20 Chronic atrial fibrillation, unspecified; E78.5 Hyperlipidemia, unspecified; Z79.01 Long term (current) use of anticoagulants; Z79.02 Long term (current) use of antithrombotics/antiplatelets
CPT/HCPCS: 45380; J1200; J2250; J3010; J7999; A9270

== ENCOUNTER 2024-12-08 06:58 | Outpatient (CLI) | payer OTHER, SELFPAY ==
[2024-12-07 15:41] LABS: Basophils # (Auto) 0.1 Thou/mm3 (0.0-0.2); Basophils % (Auto) 1 % (0-2.5); Eosinophils # (Auto) 0.0 Thou/mm3 (0.0-0.5); Eosinophils % (Auto) 0 % (0-10); Hematocrit 34.9 % (36.0-46.0); Hemoglobin 11.4 g/dL (12.0-16.0); Immature Granulocytes Auto 0.63 Thou/mm3 (0.00-0.00); Lymphocytes # (Auto) 1.2 Thou/mm3 (1.0-4.8); Lymphocytes % (Auto) 9 % (10-50); Mean Corpuscular HGB Conc 32.7 g/dl (31.0-37.0); Mean Corpuscular Hemoglobin 29.8 pg (25.0-35.0); Mean Corpuscular Volume 91 fL (80-100); Monocytes # (Auto) 1.0 Thou/mm3 (0.0-0.8); Monocytes % (Auto) 8 % (0-12); Neutrophils # (Auto) 10.2 Thou/mm3 (1.8-7.7); Neutrophils % (Auto) 77 % (37-80); Nucleated Red Blood Cell # 0.00 Thou/mm3 (0.00-0.00); Nucleated Red Blood Cell % 0 /100 WBC (0); Platelet Count 329 Thou/mm3 (140-440); RDW Standard Deviation 42.3 fL (36.4-46.3); Red Blood Count 3.82 Miln/mm3 (4.00-5.20); White Blood Count 13.1 Thou/mm3 (3.6-11.0)
[2024-12-07 15:46] LABS: Blood Urea Nitrogen 38 mg/dL (9-23); Creatinine (Component) 1.2 mg/dL (0.6-1.3); eGFR 45 See Note
[2024-12-07 15:52] LABS: INR 1.0 (0.9-1.3); Partial Thromboplastin Time 27.1 Seconds (22.0-36.0); Prothrombin Time 10.8 Seconds (9.0-12.2)
[2024-12-08] VITALS (9 sets, daily range): BP systolic 112–141; BP diastolic 64–79; PULSE 67–89; RESP 10–20; TEMP 36.4–36.8; O2SAT 94–100; BMI 24.1
--- NOTE | 2024-12-08 08:30 | XR_ITS ---
Examination: CT-guided percutaneous bone marrow aspiration left anterior superior iliac crest CT-guided bone biopsy deep left anterior superior iliac crest CT pelvis without intravenous contrast INDICATIONS: Anemia unknown etiology Date and time of procedure: December 08, 2024 0918 hours Informed consent provided. A timeout was completed verifying correct patient, procedure, site and positioning. Technique: Axial 3 mm sections were obtained for localization of the left anterior superior iliac crest Appropriate area is marked. The patient's site was prepped and draped in sterile fashion Maximal sterile barrier technique utilized, including hand hygiene Local anesthesia was obtained with 1% lidocaine. Low dose protocols were performed. One or more of the following dose reduction techniques were used; automated exposure control, adjustment of the mA and/or KV according to patient size, use of iterative reconstruction technique. Utilizing CT fluoroscopic guidance 14-gauge bone biopsy needle placed in the left anterior superior iliac crest 10 cc marrow aspirate and 5 cm bone core obtained Patient appears in stable condition during this procedure. At completion of the procedure, the patient is in satisfactory condition. Estimated blood loss 2 cc Complete pathology report to follow. Impression: Successful CT-guided percutaneous bone marrow aspiration left anterior superior iliac crest Successful CT-guided bone biopsy deep left anterior superior iliac crest
[2024-12-08 08:53] LABS: Flow Cytometry* See Sep Rpt
[2024-12-08] MEDS: SODIUM CHLORIDE 0.9% 250 ML 250 ML IV (09:00)
[2024-12-08] MEDS: fentaNYL CIT INJ 50 mCg/ML AMP 2ML 75 MCG IV (09:30)
== END 2024-12-08 10:55 | disposition home or self-care (01) ==
PROVIDERS: Radiology Diagnostic Radiology; PCP Physician Assistant; Referring Provider Nurse Practitioner Family; Visit Provider Nurse Practitioner Family
DX: D75.9 Disease of blood and blood-forming organs, unspecified (principal); Z01.812 Encounter for preprocedural laboratory examination
CPT/HCPCS: 20225; 36415; 77012; 82565; 84520; 85025; 85610; 85730; J3010; J7050